=== PATIENT | female | born 1960 | race African-American/Black ===

== ENCOUNTER 2024-03-28 08:14 | Emergency (ER) | payer MEDICARE, MEDICAID, SELFPAY ==
--- NOTE | ~2024-03-28 | XR_ITS ---
EXAMINATION: XR CHEST CLINICAL INFORMATION: cough COMPARISON: None available. TECHNIQUE: 2 views of the chest were obtained. FINDINGS: The cardiac, hilar, and mediastinal contours are normal. The lungs are clear bilaterally. There is no pneumothorax or pleural effusion. There is no focal osseous or soft tissue abnormality. Pectus excavatum. XR/XR chest 2V IMPRESSION: No active disease. Electronically signed by: Braden Louis MD 03/28/2024 10:25 AM [facility] [place]
[2024-03-28 08:32] VITALS: BP 129/61; PULSE 83; RESP 16; TEMP 36.7; O2SAT 96; BMI 39.2
[2024-03-28 09:16] LABS: IDNOW Serial# 58CA691E; Strep A Nucleic Acid Negative (Negative)
[2024-03-28 09:32] LABS: Influenza A PCR NEGATIVE (Negative); Influenza B PCR NEGATIVE (Negative); Resp Syncy Virus RNA Qual PCR NEGATIVE (Negative); SARS COV2 PCR INHOUSE POSITIVE (Negative)
--- OUTSIDE RECORDS SUMMARY | 2024-03-28 09:47 | XMS_ITS | Encounter Summary ---
Author Organization [facility] Address [address] [place] [address] Care Team Providers Care Produce Manager Name Role Phone Grady Bah MD Primary Care Provider [phone] Claudette Benjamin DO Primary Care Pro vider Unavailable Grady Bah MD Primary Care Provider [phone] Claudette Benjamin DO Primary Care Pro vider Unavailable Ellie Jones MD Primary Care Provider Un available Owen Tejada MD Primary Care Provider Unavail able Gold Beaulieu MD Primary Care Provider [phone] Ellie Jones MD Primary Care Provider Un available Formerly [facility], 1928–1983, Pcp Primary Care Provider Unavailabl e Encounter Details Date Type Department Care Team Description 02/12/2011 Night Triage Doc Medical Records [address] [place] [address] Abstract, Provider Social History Tobacco Use Types Packs/Day Years Used Date Smoking Tobacco: Former Smokeless Tobacco: Never Comments:1984 Alcohol Use Standard Drinks/Week Comments Yes 0 (1 standard drink = 0.6 oz pur e alcohol) occ Sex Assigned at Date Recorded Not on file documented as of this encounter Plan of Treatment Not on file documented as of this encounter Visit Diagnoses Not on filedocumented in this encounter Care Teams Produce Manager Relationship Specialty Start Date End Date Grady Bah MD [address] [place] [address] PCP - General 03/21/09 11/01/12 Claudette Benjamin, DO [address] [place] [address] 20245 PCP - General Internal Medicine 11/02/12 12/24/12 Grady Bah MD [address] [place] [address] 53098 PCP - General Internal Medicine 12/25/12 04/22/13 Claudette Benjamin, DO [address] [place] [address] 67144 PCP - General Internal Medicine 04/23/13 11/21/13 Ellie Jones MD [address] [place] [address] 70376 PCP - General Internal Medicine 05/28/15 10/04/18 Owen Tejada MD [address] [place] [address] 14305 PCP - General Internal Medicine 10/05/18 12/05/19 Gold Beaulieu MD [address] [place] [address] PCP - General Internal Medicine 12/06/19 10/09/20 Ellie Jones MD [address] [place] [address] 25124 PCP - General 11/22/13 05/27/15 Formerly [facility], 1928–[facility], [address] [address] PCP - General Internal Medicine 10/10/20 documented as of this encounter
--- OUTSIDE RECORDS SUMMARY | 2024-03-28 09:47 | XMS_ITS | Encounter Summary ---
Author Organization [facility] Address [address] [place] [address] Care Team Providers Care Band Director Name Role Phone Pcp, No Primary Care Provider Unavailabl e Encounter Details Date Type Department Care Team (Late st Contact Info) Description 12/02/2022 Conversion Orders Only [facility] Internal Medicine - [facility] [address] [place] [address] Saravanan Herrera MD [address] [facility] [address] [place] [address] Social History Tobacco Use Types Packs/Day Years Used Date Smoking Tobacco: Never Assessed PHQ-9 Answer Date Recorded Patient Health Questionnaire-9 Score 7 10/26/2022 Comments Unknown Sex and Gender Information Value Date Recorded Sex Assigned at Female 09/01/2020 9:31 AM EDT Legal Sex Female 9:31 AM EDT Gender Identity Not on file Sexual Orientation Not on file documented as of this encounter Plan of Treatment Upcoming Encounters Date Type Department Care Team (Late st Contact Info) Description 07/09/2024 9:00 AM EDT Appointment [facility] Imaging - RADIOLOGY CT [address] [place] [address] 07/19/2024 9:00 AM EDT Office Visit [facility] - 03 Pulmonary Medicine [address] [place] [address] documented as of this encounter Visit Diagnoses Not on filedocumented in this encounter Additional Health Concerns Assessment Noted Time PHQ-9 Depression Total Score: 7 10/27/19 23 8:07 AM EDT documented as of this encounter Care Teams Band Director Relationship Specialty Start Date End Date Pcp, No PCP - General Internal Medicine 01/12/24 documented as of this encounter
--- OUTSIDE RECORDS SUMMARY | 2024-03-28 09:47 | XMS_ITS | Encounter Summary ---
Author Organization [facility] visits prior to 04/30/2023. [place] [address] Care Team Providers Care Oracle E Business Developer Name Role Phone Day Iraheta MD Primary Care Provid er Unavailable Mary Hernandez FIELD MECHANIC/SITE LEAD Unavailable [phone] Reason for Visit * Reason Onset Date Comments Insurance Question 05/18/2022 Encounter Details Date Type Department Care Team Description 05/18/2022 Telephone [facility]ly [facility] [address] [address] Mary Hernandez NP [address] [address] Insurance Question Social History Tobacco Use Types Packs/Day Years Used Date Smoking Tobacco: Former Cigarettes Q uit: 02/28/1981 Smokeless Tobacco: Never Alcohol Use Standard Drinks/Week Comments Not Currently 0 (1 standard drink = 0.6 oz pur e alcohol) Humiliation, Afraid, Rape, and Kick questionnair e Answer Date Recorded Within the last year, have y ou been afraid of your partner or ex-partner? No 03/25/2022 Within the last year, have y ou been humiliated or emotionally abused in other ways by your partner or ex-partner? No Within the last year, have y ou been kicked, hit, slapped, or otherwise physically hurt by your partner or ex-partner? No 03/25/2022 Within the last year, have y ou been raped or forced to have any kind of sexual activity by your partner or ex-partner? No 03/25/2022 Social Connection and Isolat ion Panel [NHANES] Answer Date Recorded In a typical week, how many times do you talk on the phone with family, friends, or neighbors? More than three times a week 03/25/2022 How often do you get togethe r with friends or relatives? More than three times a week 03/25/2022 How often do you attend chur or faith services? More than 4 times per year 03/25/2022 Do you belong to any clubs o r organizations such as hindu groups, unions, fraternal or athletic groups, or school groups? Yes 03/25/2022 How often do you attend meet ings of the clubs or organizations you belong to? More than 4 times per year 03/25/2022 Are you , , di vorced, , never , or living with a partner? 03/25/2022 AUDIT-C Answer Date Recorded Q1: How often do you have a drink containing alcohol? Never 03/25/2022 Q2: How many drinks containi ng alcohol do you have on a typical day when you are drinking? Patient does not drink Q3: How often do you have si x or more drinks on one occasion? Never 03/25/2022 Overall Financial Resource Strain (CARDIA) Answe r Date Recorded How hard is it for you to pa y for the very basics like food, housing, medical care, and heating? Not very hard 03/25/2022 PHQ-2 Answer Date Recorded SDOH PHQ2 SCORE 0 05/10/2022 [facility] [place] [facility] Occupat ional Health - Occupational Stress Questionnaire Answer Date Recorded Do you feel stress - tense, restless, nervous, or anxious, or unable to sleep at night because your mind is troubled all the time - these days? Very much 03/25/2022 Exercise Vital Sign Answer Date Recorde d On average, how many days pe r week do you engage in moderate to strenuous exercise (like a brisk walk)? 5 days 03/25/2022 On average, how many minutes do you engage in exercise at this level? 20 min 03/25/2022 Hunger Vital Sign Answer Date Recorded Within the past 12 months, y ou worried that your food would run out before you got the money to buy more. Never true 03/25/19 23 Within the past 12 months, t he food you bought just didn't last and you didn't have money to get more. Never true 03/25/2022 PRAPARE - Transportation Answer Date Re corded In the past 12 months, has l ack of transportation kept you from medical appointments or from getting medications? No 03/01 In the past 12 months, has l ack of transportation kept you from meetings, work, or from getting things needed for daily living? No 03/25/2022 Housing Stability Vital Sign Answer Mike e Recorded In the last 12 months, was t here a time when you were not able to pay the mortgage or rent on time? No 03/25/2022 In the last 12 months, how many places have you lived? 1 03/25/2022 In the last 12 months, was t here a time when you did not have a steady place to sleep or slept in a fpc (including now)? No 03/25/2022 Sex and Gender Information Value Date Recorded Sex Assigned at Female 01/19/2021 3:54 PM EST Gender Identity Female 01/19/2021 3:54 PM EST Sexual Orientation Not on file COVID-19 Exposure Response Date Recorded In the last 10 days, have yo u been in contact with someone who was confirmed or suspected to have Coronavirus/COVID-19? Unable to assess 05/19/2022 7:32 AM EDT documented as of this encounter Miscellaneous Notes * Telephone Encounter - Luna Steele CMA - 05/21/2022 3:07 PM EDT . Electronically signed by: Luna Steele CMA 05/21/22 1507 * Telephone Encounter - Laurita Cordova RMA - 05/20/2022 4:21 PM EDT In lab study Electronically signed by: MARILYN Rojas 05/20/22 1622 * Telephone Encounter - Tacho Benavides - 05/20/2022 4:02 PM EDT Patient calling to verify insurance clearance for sleep study . Please advise enrique at [phone] . * Telephone Encounter - Melissa Sierra - 05/18/2022 11:54 AM EDT [facility] [employer] is calling to ask if the appointment she has scheduled for tomorrow will be billed to the patient in it's entirety, or if she has to only pay her copay. If not, has an authorization been obtained from her insurance company for the visit. Leann from [employer] can be reached at [phone] documented in this encounter Plan of Treatment Not on file documented as of this encounter Visit Diagnoses Not on filedocumented in this encounter Additional Health Concerns Infection Onset Date Last Indicated Resolved Time R/O Influenza, POC 12/09/2022 12/09/2022 8:24 AM EDT R/O COVID-19 12/09/2022 12/09/2022 12/09/2022 8:39 AM EDT R/O COVID-19;Influenza;RSV 12/09/2022 12/09/2022 1 3:08 PM EDT documented as of this encounter Care Teams Oracle E Business Developer Relationship Specialty Start Date End Date Day Iraheta MD PCP - General Internal Medicine 02/16/22 Mary Hernandez NP [facility] [place] [id number] Nurse Practitioner Nurse Practitioner 10/28/22 documented as of this encounter
--- OUTSIDE RECORDS SUMMARY | 2024-03-28 09:47 | XMS_ITS | Encounter Summary ---
Author Organization [facility] visits prior to 04/30/2023. Address [place] [address] Care Team Providers Care Preparer Samples And Repairs Name Role Phone Day Iraheta MD Primary Care Provid er Unavailable Mary Hernandez SHOE FITTER Unavailable [phone] Reason for Visit * Reason Onset Date Comments fredis 06/03/2022 Encounter Details Date Type Department Care Team Description 06/03/2022 Telephone [facility] Internal Medicine - [address] [address] Day Iraheta MD traige Social History Tobacco Use Types Packs/Day Years [...] 03/25/2022 How often do you attend chur ch or evangelical services? More than 4 times per year 03/25/2022 Do you belong to any clubs o r organizations such as baptism groups, unions, fraternal or athletic groups, or [...] very hard 03/25/2022 PHQ-2 Answer Date Recorded [facility] PHQ2 SCORE 0 05/10/2022 [facility] of Occupat ional Health - Occupational Stress [...] place to sleep or slept in a snf (including now)? No 03/25/2022 Sex and Gender Information Value Date Recorded Sex Assigned at Female 01/19/2021 3:54 PM EST Gender Identity Female 01/19/2021 3:54 PM EST Sexual Orientation Not on file COVID-19 Exposure Response Date Recorded In the last 10 days, have yo u been in contact with someone who was confirmed or suspected to have Coronavirus/COVID-19? No / Unsure 05/25/2022 8:15 PM EDT documented as of this encounter Miscellaneous Notes * Telephone Encounter - Archana Borges - 06/03/2022 11:48 AM EDT Patient would like to speak to a nurse about her cholesterol. documented in this encounter Plan of Treatment [...] documented as of this encounter Care Teams Preparer Samples And Repairs Relationship Specialty Start Date End Date Day Iraheta MD PCP - General Internal Medicine 02/16/22 Mary Hernandez NP [facility] [place] [address] Nurse Practitioner Nurse Practitioner 10/28/22 documented as of this encounter
--- OUTSIDE RECORDS SUMMARY | 2024-03-28 09:47 | XMS_ITS | Encounter Summary ---
Author Organization [facility] Address [address] [place] [address] Care Team Providers Care Zoo Veterinarian Name Role Phone Ellie Jones MD Primary Care Provider Un available Owen Tejada MD Primary Care Provider Unavail able Gold Beaulieu MD Primary Care Provider [phone] Ellie Jones MD Primary Care Provider Un available [facility], Pcp Primary Care Provider Unavailabl e Encounter Details Date Type Department Care Team Description 11/23/2013 [facility] Medical Records [address] [place] [address] Uday Bowen Ted Social History Tobacco Use Types Packs/Day Years Used Date Smoking Tobacco: Former Cigarettes Q uit: 02/28/1981 Smokeless Tobacco: Never Alcohol Use Standard Drinks/Week Comments No 0 (1 standard drink = 0.6 oz pur e alcohol) rarely Sex Assigned at Date Recorded Not on file documented as of this encounter Plan of Treatment Not on file documented as of this encounter Visit Diagnoses Not on filedocumented in this encounter Care Teams Zoo Veterinarian Relationship Specialty Start Date End Date Ellie Jones MD PCP - General Internal Medicine 05/28/15 9 Owen Tejada MD PCP - General Internal Medicine 10/05/18 12/05/19 Gold Beaulieu MD [address] [place] [address] PCP - General Internal Medicine 12/06/19 10/09/20 Ellie Jones MD PCP - General 11/22/13 05/27/15 [facility], Pcp [address] [place] [address] PCP - General Internal Medicine 10/10/20 documented as of this encounter
--- OUTSIDE RECORDS SUMMARY | 2024-03-28 09:47 | XMS_ITS | Encounter Summary ---
Author Organization [facility] Address [address] [place] [address] Care Team Providers Care Skate Boarder Name Role Phone Claudette Benjamin DO Primary Care Pro vider Unavailable Ellie Jones MD Primary Care Provider Un available Owen Tejada MD Primary Care Provider Unavail able Gold Beaulieu MD Primary Care Provider [phone] Ellie Jones MD Primary Care Provider Un available [facility], [facility] Primary Care Provider Unavailabl e Encounter Details Date Type Department Care Team Description 09/20/2013 Pt. Non Urgent Medic al Question Adult Medicine [address] [address] Claudette Benjamin DO Social History Tobacco Use Types Packs/Day Years Used Date Smoking Tobacco: Former Cigarettes Q uit: 02/28/1981 Smokeless Tobacco: Never Comments:1983 Alcohol Use Standard Drinks/Week Comments No 0 (1 standard drink = 0.6 oz pur e alcohol) occ Sex Assigned at Date Recorded Not on file documented as of this encounter Progress Notes * Anneliese Saavedra M.A. - 09/24/2013 9:14 AM EDTFrom: Sera Barraza To: Claudette Guajardo DO Sent: 09/20/2013 7:14 AM EDT Subject: No Show ultrasound is incorrect Please note in reference to the note below it is incorrect. I had cancelled this appt. the night before. Could this be corrected to reflect the correct reason in which it was cancelled and not a no show? Sera Barraza From The Care Team Of: [facility] Received: 08/04/2013 11:46 PM EDT Appointment Information: Visit Type: Ultrasound Dept: Ultrasound - [place] Provider: ROCIO LOWE Date: 08/02/2013 Time: 8:00 Length: 30 min Appt Status: No Show documented in this encounter Plan of Treatment Not on file documented as of this encounter Visit Diagnoses Not on filedocumented in this encounter Care Teams Skate Boarder Relationship Specialty Start Date End Date Claudette Benjamin DO PCP - General Internal Medicine 04/23/13 11/21/13 Ellie Jones MD PCP - General Internal Medicine 05/28/15 9 Owen Tejada MD PCP - General Internal Medicine 10/05/18 12/05/19 Gold Beaulieu MD [address] [place] [address] PCP - General Internal Medicine 12/06/19 10/09/20 Ellie Jones MD PCP - General 11/22/13 05/27/15 [facility]ly [facility], [address] [address] PCP - General Internal Medicine 10/10/20 documented as of this encounter
--- OUTSIDE RECORDS SUMMARY | 2024-03-28 09:47 | XMS_ITS | Encounter Summary ---
Author Organization [facility] visits prior to 04/30/2023. [place] [address] Care Team Providers Care Fish Icer Name Role Phone Day Iraheta MD Primary Care Provid er Unavailable Mary Hernandez PAPER MAKER Unavailable [phone] Reason for Visit * Reason Onset Date Comments ? about a sleep study 05/24/2022 Encounter Details Date Type Department Care Team Description 05/24/2022 Telephone [facility] [address] [address] Mary Hernandez NP [address] [address] ? about a sleep study Social History Tobacco Use Types Packs/Day Years [...] How often do you attend chur or mormon services? More than 4 times per year 03/25/2022 Do you belong to any clubs o r organizations such as denominational groups, unions, fraternal or athletic groups, or [...] very hard 03/25/2022 PHQ-2 Answer Date Recorded [facility] PHQ2 SCORE 0 05/10/2022 [facility] of Occupat ional Health - Occupational Stress [...] place to sleep or slept in a fdc (including now)? No 03/25/2022 Sex and Gender [...] encounter Miscellaneous Notes * Telephone Encounter - Sarah Zafar - 05/24/2022 1:12 PM EDT Returned call and explained to patient to bring med with her and tell landfill gas plant field technician so they can tell her when to take it. * Telephone Encounter - Tamanna Parada - 05/24/2022 11:17 AM EDT [place] [phone] She needs to discuss if she needs take or not take any of her medications. This medication in particular QUEtiapine (SEROQUEL. She said she would like to know when the next available appt is. She mayneed to r/s due to a meeting . Call back is [phone] * Telephone Encounter - Luna Steele CMA - 05/24/2022 11:07 AM EDT [facility] for Tuesday05/25/2022. Mc Electronically signed by: Luna Steele CMA 05/24/22 1107 * Telephone Encounter - Kristal Bobo - 05/24/2022 9:54 AM EDT Patient is calling to check the status of getting the second sleep study set up. Please call [phone] Thank you Kristal documented in this encounter Plan of Treatment [...] documented as of this encounter Care Teams Fish Icer Relationship Specialty Start Date End Date Day Iraheta MD PCP - General Internal Medicine 02/16/22 Mary Hernandez NP [address] [place] [address] Nurse Practitioner Nurse Practitioner 10/28/22 documented as of this encounter
--- OUTSIDE RECORDS SUMMARY | 2024-03-28 09:47 | XMS_ITS | Encounter Summary ---
Author Organization [facility] Address [address] [place] [address] Care Team Providers Care Heavy Forger Name Role Phone Grady Bah MD Primary Care Provider [phone] Claudette Benjamin DO Primary Care Pro vider Unavailable Grady Bah MD Primary Care Provider [phone] Claudette Benjamin DO Primary Care Pro vider Unavailable Ellie Jones MD Primary Care Provider Un available Owen Tejada MD Primary Care Provider Unavail able Gold Beaulieu MD Primary Care Provider [phone] Ellie Jones MD Primary Care Provider Un available [facility], Pcp Primary Care Provider Unavailabl e Encounter Details Date Type Department Care Team Description 10/13/2010 Night Triage Doc Medical Records [address] [place] [address] Abstract, Provider Social History Tobacco Use Types [...] on filedocumented in this encounter Care Teams Heavy Forger Relationship Specialty Start Date End Date Grady Bah MD [address] [place] [address] PCP - General 03/21/09 11/01/12 Claudette Benjamin, DO [address] [place] [address] PCP - General Internal Medicine 11/02/12 12/24/12 Grady Bah MD [address] [place] [address] PCP - General Internal Medicine 12/25/12 04/22/13 Claudette Benjamin, DO [address] [place] [address] PCP - General Internal Medicine 04/23/13 11/21/13 Ellie Jones MD [address] [place] [address] PCP - General Internal Medicine 05/28/15 10/04/18 Owen Tejada MD [address] [place] [address] PCP - General Internal Medicine 10/05/18 12/05/19 Gold Beaulieu MD [address] [place] [address] PCP - General Internal Medicine 12/06/19 10/09/20 Ellie Jones MD [address] [place] [address] PCP - General 11/22/13 05/27/15 [facility], [address] [address] PCP - General Internal Medicine 10/10/20 documented as of this encounter
--- OUTSIDE RECORDS SUMMARY | 2024-03-28 09:47 | XMS_ITS | Encounter Summary ---
Author Organization [facility] Address [address] [place] [address] Care Team Providers Care Sports Broadcasting Internship Name Role Phone Pcp, No Primary Care Provider Unavailabl e Encounter Details Date Type Department Care Team (Late st Contact Info) Description 07/12/2022 Conversion Orders Only [facility] Internal Medicine - [address] [place] [address] Day Iraheta MD Social History Tobacco Use Types Packs/Day Years Used Date Smoking Tobacco: Never Assessed Comments Unknown Sex and Gender Information Value Date Recorded Sex Assigned at Female 09/01/2020 9:31 AM EDT Legal Sex Female 9:31 AM EDT Gender Identity Not on file Sexual Orientation Not on file documented as of this encounter Functional Status * Over the past 2 weeks, how often have you been bothered by any of the following problems? Question Answer Date of Assessment Author Patient Health Questionnaire-2 Score 0 07/15/2022 8:08 AM EDT [facility] Incom ing Clinical Documentation Flowsheets Conversion 4 * Little interest or pleasure in doing things Answer Date of Assessment Author Not at all 07/15/2022 8:08 AM EDT [facility] Incoming Clinical Documentation Flowsheets Conversion 4 * Feeling down, depressed, or hopeless Answer Date of Assessment Author Not at all 07/15/2022 8:08 AM EDT [facility] Incoming Clinical Documentation Flowsheets Conversion 4 documented as of this encounter Plan of Treatment Upcoming Encounters Date Type Department Care Team (Late st Contact Info) Description 07/09/2024 9:00 AM EDT Appointment [facility] Imaging - RADIOLOGY CT [address] [place] [address] 07/19/2024 9:00 AM EDT Office Visit [facility] - 03 Pulmonary Medicine [address] [place] [phone] documented as of this encounter Visit Diagnoses Not on filedocumented in this encounter Care Teams Sports Broadcasting Internship Relationship Specialty Start Date End Date Pcp, No PCP - General Internal Medicine 01/12/24 documented as of this encounter
--- OUTSIDE RECORDS SUMMARY | 2024-03-28 09:47 | XMS_ITS | Encounter Summary ---
Author Organization Formerly [facility] Address [address] [place] [address] Care Team Providers Care Blow Down Helper Name Role Phone Claudette Benjamin DO Primary Care Pro vider Unavailable Ellie Jones MD Primary Care Provider Un available Owen Tejada MD Primary Care Provider Unavail able Gold Beaulieu MD Primary Care Provider [phone] Ellie Jones MD Primary Care Provider Un available [facility], Pcp Primary Care Provider Unavailabl e Encounter Details Date Type Department Care Team Description 07/26/2013 Orders Only Adult Medicine [address] [address] Claudette Benjamin DO Pain in joint, site unspecified; Other malaise and fatigue Social History Tobacco Use Types Packs/Day Years Used Date Smoking Tobacco: Former Cigarettes Q uit: 02/28/1981 Smokeless Tobacco: Never Comments:1983 Alcohol Use Standard Drinks/Week Comments No 0 (1 standard drink = 0.6 oz pur e alcohol) occ Sex Assigned at Date Recorded Not on file documented as of this encounter Plan of Treatment Not on file documented as of this encounter Results * (ABNORMAL) 25 HYDROXY INCLUDES FRACTIONS IF PERFORMED (07/27/2013 11:29 AM EDT) 25-HYDROXY VITAMIN D TOTAL 16(L) 30 - 80 ng/ml 07/27/2013 3:50 PM EDT [facility] Comment: Vitamin D Reference Ranges ??Deficiency: ? <20 ng/mL ??Insufficiency: ?20-29 ng/mL ??Optimal: ?30-80 ng/mL ??High: ? >80 ng/mL 07/27/2013 11:2 9 AM EDT 07/27/2013 11:24 AM EDT Claudette Scruggs Colasacco DO LAB Performing Organization Address [facility] de Phone Number [address] * VITAMIN B-12, ASSAY (07/27/2013 11:29 AM EDT) VITAMIN B12 572 211 - 946 pg/mL 07/27/2013 12:41 PM EDT [facility] 07/27/2013 11:2 9 AM EDT 07/27/2013 11:24 AM EDT Claudette Scruggs Colasacco DO LAB Performing Organization Address [facility] Phone Number [address] * RBC SEDIMENTATION RATE, NON-AUTO (07/27/2013 11:29 AM EDT) ESR 6 0 - 30 mm/hr 07/27/2013 2:43 PM EDT [facility] 07/27/2013 11:2 9 AM EDT 07/27/2013 11:24 AM EDT Claudette Scruggs Colasacco DO LAB Performing Organization Address [facility] de Phone Number [address] documented in this encounter Visit Diagnoses Diagnosis Pain in joint, site unspecified Other malaise and fatigue documented in this encounter Care Teams Blow Down Helper Relationship Specialty Start Date End Date Claudette Benjamin DO PCP - General Internal Medicine 04/23/13 11/21/13 Ellie Jones MD PCP - General Internal Medicine 05/28/15 9 Owen Tejada MD PCP - General Internal Medicine 10/05/18 12/05/19 Gold Beaulieu MD [address] [place] [address] PCP - General Internal Medicine 12/06/19 10/09/20 Ellie Jones MD PCP - General 11/22/13 05/27/15 [facility], Pcp [address] [place] [address] PCP - General Internal Medicine 10/10/20 documented as of this encounter
--- OUTSIDE RECORDS SUMMARY | 2024-03-28 09:47 | XMS_ITS | Encounter Summary ---
Author Organization [facility] Address [address] [place] [address] Care Team Providers Care Passenger Screener Name Role Phone Ellie Jones MD Primary Care Provider Un available Owen Tejada MD Primary Care Provider Unavail able Gold Beaulieu MD Primary Care Provider [phone] Ellie Jones MD Primary Care Provider Un available [facility], [facility], Pcp Primary Care Provider Unavailabl e Encounter Details Date Type Department Care Team Description 11/22/2013 [facility] Medical Records [address] [place] [address] Robert Lau MD [address] [place] [address] Social History Tobacco Use Types Packs/Day Years [...] on filedocumented in this encounter Care Teams Passenger Screener Relationship Specialty Start Date End Date Ellie Jones MD PCP - General Internal Medicine 05/28/15 9 Owen Tejada MD PCP - General Internal Medicine 10/05/18 12/05/19 Gold Beaulieu MD [address] [place] [address] PCP - General Internal Medicine 12/06/19 10/09/20 Ellie Jones MD PCP - General 11/22/13 05/27/15 [facility], [facility], [address] [address] PCP - General Internal Medicine 10/10/20 documented as of this encounter
--- OUTSIDE RECORDS SUMMARY | 2024-03-28 09:47 | XMS_ITS | Encounter Summary ---
Author Organization [facility] Address [address] [place] [address] Care Team Providers Care Pad Assembler Name Role Phone Grady Bah MD Primary Care Provider [phone] Claudette Benjamin DO Primary Care Pro vider Unavailable Grady Bah MD Primary Care Provider [phone] Claudette Benjamin DO Primary Care Pro vider Unavailable Ellie Jones MD Primary Care Provider Un available Owen Tejada MD Primary Care Provider Unavail able Gold Beaulieu MD Primary Care Provider [phone] Ellie Jones MD Primary Care Provider Un available [facility], Pcp Primary Care Provider Unavailabl e Encounter Details Date Type Department Care Team Description 11/13/2010 Refill Adult Medicine [address] [id number] Grady Bah MD [address] [place] [address] [id number] Social History Tobacco Use Types Packs/Day Years [...] on filedocumented in this encounter Care Teams Pad Assembler Relationship Specialty Start Date End Date Grady Bah MD [address] [place] [address] PCP - General 03/21/09 11/01/12 Claudette Benjamin, DO [address] [place] [address] PCP - General Internal Medicine 11/02/12 12/24/12 Grady Bah MD [address] [place] [address] PCP - General Internal Medicine 12/25/12 04/22/13 Claudette Benjamin, DO [address] [place] [address] PCP - General Internal Medicine 04/23/13 11/21/13 Ellie Jones MD [address] [place] [address] PCP - General Internal Medicine 05/28/15 10/04/18 Owen Tejada MD [address] [place] [address] PCP - General Internal Medicine 10/05/18 12/05/19 Gold Beaulieu MD [address] [place] [address] PCP - General Internal Medicine 12/06/19 10/09/20 Ellie Jones MD [address] [place] [address] PCP - General 11/22/13 05/27/[address] [address] PCP - General Internal Medicine 10/10/20 documented as of this encounter
--- OUTSIDE RECORDS SUMMARY | 2024-03-28 09:47 | XMS_ITS | Encounter Summary ---
Author Organization [facility] Address [address] [place] [address] Care Team Providers Care Model Maker Scale Name Role Phone Grady Bah MD Primary Care Provider [phone] Claudette Benjamin DO Primary Care Pro vider Unavailable Grady Bah MD Primary Care Provider [phone] Claudette Benjamin DO Primary Care Pro vider Unavailable Ellie Jones MD Primary Care Provider Un available Owen Tejada MD Primary Care Provider Unavail able Gold Beaulieu MD Primary Care Provider [phone] Ellie Jones MD Primary Care Provider Un available [facility], Pcp Primary Care Provider Unavailabl e Encounter Details Date Type Department Care Team Description 11/13/2010 [employer] [facility] [place] [address] [place] [address] Md [place] Social History Tobacco Use Types Packs/Day Years Used Date Smoking Tobacco: Former Smokeless Tobacco: Never Comments:1984 Alcohol Use Standard Drinks/Week Comments Yes 0 (1 standard drink = 0.6 oz pur e alcohol) occ Sex Assigned at Date Recorded Not on file documented as of this encounter Miscellaneous Notes * Telephone Encounter - Gerda Zamarripa M.A. - 11/13/2010 2:38 PM EDTFrom: JULISA VERA Sent: TueNov 13, 2010 2:38 PM Subject: Request Refill Not On Medication List Request submitted by Julisa Rubio [<[id number]>] on 11/13/2010 at 2:35:12 PM Form Title: Request Refill Not On Medication List Submitted Data From: Julisa Rubio Primary care provider: Grady Bah MD --- Contact Information --- Contact Phone #: [phone] --- Medication Request Information --- Medication name: Generic Zoloft Dosage: Please read chart it's 50mg, not 25mg instructions: please read inital chart it no longer is 25mg # Dispensed: I would appreciate 3 mos. supply or 6 mos? Ordering Provider: don't remember but it was not Dr. Bah he had refill but wrong mg. Please see chart Pharmacy: [facility] Other Details: Please read the chart, documented in this encounter Plan of Treatment Not on file documented as of this encounter Visit Diagnoses Not on filedocumented in this encounter Care Teams Model Maker Scale Relationship Specialty Start Date End Date Grady Bah MD [address] [place] [address] PCP - General 03/21/09 11/01/12 Claudette Benjamin, [address] [address] PCP - General Internal Medicine 11/02/12 12/24/12 Grady Bah MD [address] [place] [address] PCP - General Internal Medicine 12/25/12 04/22/13 Claudette Benjamin, [address] [address] PCP - General Internal Medicine 04/23/13 11/21/13 Ellie Jones MD [address] [place] [address] PCP - General Internal Medicine 05/28/15 10/04/18 Owen Tejada MD [address] [place] [address] PCP - General Internal Medicine 10/05/18 12/05/19 Gold Beaulieu MD [address] [place] [address] PCP - General Internal Medicine 12/06/19 10/09/20 Ellie Jones MD [address] [place] [address] PCP - General 11/22/13 05/27/15 [facility], Pcp [address] [place] [address] PCP - General Internal Medicine 10/10/20 documented as of this encounter
--- OUTSIDE RECORDS SUMMARY | 2024-03-28 09:47 | XMS_ITS | Encounter Summary ---
Author Organization [facility] Address [address] [place] [address] Care Team Providers Care Advertising Solicitor Name Role Phone Grady Bah MD Primary Care Provider [phone] Claudette Benjamin DO Primary Care Pro vider Unavailable Grady Bah MD Primary Care Provider [phone] Claudette Benjamin DO Primary Care Pro vider Unavailable Ellie Jones MD Primary Care Provider Un available Owen Tejada MD Primary Care Provider Unavail able Gold Beaulieu MD Primary Care Provider [phone] Ellie Jones MD Primary Care Provider Un available [facility], Pcp Primary Care Provider Unavailabl e Encounter Details Date Type Department Care Team Description 11/01/2009 Night Triage Doc Medical Records [address] [place] [address] Abstract, Provider Social History Tobacco Use Types Packs/Day Years Used Date Smoking Tobacco: Former Comments:1984 Alcohol Use Standard Drinks/Week Comments Yes 0 (1 standard drink = 0.6 oz pur e alcohol) occ Sex Assigned at Date Recorded Not on file documented as of this encounter Plan of Treatment Not on file documented as of this encounter Visit Diagnoses Not on filedocumented in this encounter Care Teams Advertising Solicitor Relationship Specialty Start Date End Date Grady Bah MD [address] [place] [address] [phone] PCP - General 03/21/09 11/01/12 Claudette Benjamin, DO [address] [place] [address] PCP - General Internal Medicine 11/02/12 12/24/12 Grady Bah MD [address] [place] [address] PCP - General Internal Medicine 12/25/12 04/22/13 Claudette Benjamin, DO [address] [place] [address] PCP - General Internal Medicine 04/23/13 11/21/13 Ellie Jones MD [address] [place] [address] PCP - General Internal Medicine 05/28/15 10/04/18 Owen Tejada MD [address] [place] [address] PCP - General Internal Medicine 10/05/18 12/05/19 Gold Beaulieu MD [address] [place] [address] PCP - General Internal Medicine 12/06/19 10/09/20 Ellie Jones MD [address] [place] [address] PCP - General 11/22/13 05/27/15 [facility], [address] [address] PCP - General Internal Medicine 10/10/20 documented as of this encounter
--- OUTSIDE RECORDS SUMMARY | 2024-03-28 09:47 | XMS_ITS | Encounter Summary ---
Author Organization [facility] Address [address] [place] [address] Care Team Providers Care Slunk Skinner Name Role Phone Claudette Benjaimn DO Primary Care Pro vider Unavailable Ellie Jones MD Primary Care Provider Un available Owen Tejada MD Primary Care Provider Unavail able Gold Beaulieu MD Primary Care Provider [phone] Ellie Jones MD Primary Care Provider Un available [facility], [facility] Primary Care Provider Unavailabl e Reason for Referral * Specialist (Routine) - Authorized/Booked Specialty Diagnoses / Procedures Referred By Taj bryan Referred To Contact Physiatry Procedures REFERRAL TO COMMUNICATIONS EQUIPMENT SUPERVISOR Claudette Benjamin DO [address] [place], [place] [address] [place] [address]/[address] [address] Referral ID Status Reason Start Date Expiration Date V isits Requested Visits Authorized NOT REQUIRED Authorized/ Booked 10/04/2013 10/04/2014 1 1 Encounter Details Date Type Department Care Team Description 10/04/2013 Orders Only Adult Medicine [address] [address] [place] Colasacco, Claudette, DO Knee pain, unspecified laterality (Primary Dx) Social History Tobacco Use Types Packs/Day Years Used Date Smoking Tobacco: Former Cigarettes Q uit: 02/28/1981 Smokeless Tobacco: Never Comments:1983 Alcohol Use Standard Drinks/Week Comments No 0 (1 standard drink = 0.6 oz pur e alcohol) occ Sex Assigned at Date Recorded Not on file documented as of this encounter Plan of Treatment Not on file documented as of this encounter Visit Diagnoses Diagnosis Knee pain, unspecified laterality- Primary documented in this encounter Care Teams Slunk Skinner Relationship Specialty Start Date End Date Claudette Benjamin DO PCP - General Internal Medicine 04/23/13 11/21/13 Ellie Jones MD PCP - General Internal Medicine 05/28/15 9 Owen Tejada MD PCP - General Internal Medicine 10/05/18 12/05/19 Gold Beaulieu MD [address] [place] [address] PCP - General Internal Medicine 12/06/19 10/09/20 Ellie Jones MD PCP - General 11/22/13 05/27/15 [facility], [address] [address] PCP - General Internal Medicine 10/10/20 documented as of this encounter
--- OUTSIDE RECORDS SUMMARY | 2024-03-28 09:47 | XMS_ITS | Encounter Summary ---
Author Organization [facility] Address [address] [place] [address] Care Team Providers Care Link Trainer Operator Name Role Phone Grady Bah MD Primary Care Provider [phone] Claudette Benjamin DO Primary Care Pro vider Unavailable Grady Bah MD Primary Care Provider [phone] Claudette Benjamin DO Primary Care Pro vider Unavailable Ellie Jones MD Primary Care Provider Un available Owen Tejada MD Primary Care Provider Unavail able Gold Beaulieu MD Primary Care Provider [phone] Ellie Jones MD Primary Care Provider Un available [facility], Pcp Primary Care Provider Unavailabl e Encounter Details Date Type Department Care Team Description 09/21/2010 Night Triage Doc Medical Records [address] [place] [address] Abstract, Provider Social History Tobacco Use Types [...] on filedocumented in this encounter Care Teams Link Trainer Operator Relationship Specialty Start Date End Date Grady Bah MD [address] [place] [address] PCP - General 03/21/09 11/01/12 Claudette Benjamin, DO [address] [place] [address] PCP - General Internal Medicine 11/02/12 12/24/12 Grady Bah MD [address] [place] [address] PCP - General Internal Medicine 12/25/12 04/22/13 Claudette Benjamin, DO [address] [place] [address] PCP - General Internal Medicine 04/23/13 11/21/13 Ellie Jones MD [address] [place] [address] PCP - General Internal Medicine 05/28/15 10/04/18 Owen Tejada MD [address] [place] [address] PCP - General Internal Medicine 10/05/18 12/05/19 Gold Beaulieu MD [address] [place] [address] PCP - General Internal Medicine 12/06/19 10/09/20 Ellie Jones MD [address] [place] [address] PCP - General 11/22/13 05/27/15 [facility], [address] [address] PCP - General Internal Medicine 10/10/20 documented as of this encounter
--- OUTSIDE RECORDS SUMMARY | 2024-03-28 09:47 | XMS_ITS | Encounter Summary ---
Author Organization [facility] visits prior to 04/30/2023. [place] [address] Care Team Providers Care Truck Spotter Name Role Phone Day Iraheta MD Primary Care Provid er Unavailable Mary Hernandez CRADLE SLIDE MAKER Unavailable [phone] Reason for Visit * Reason Onset Date Comments BH:medication 05/05/2022 Encounter Details Date Type Department Care Team Description 05/05/2022 Telephone [facility] - [address] [address] Butch Vann MD BH:medication Social History Tobacco Use Types Packs/Day Years [...] often do you attend chur ch or hoahaoism services? More than 4 times per year 03/25/2022 Do you belong to any clubs o r organizations such as bahai groups, unions, fraternal or athletic groups, or [...] very hard 03/25/2022 PHQ-2 Answer Date Recorded [facility] PHQ2 SCORE 0 05/06/2022 [facility] - Occupational Stress [...] place to sleep or slept in a long-term (including now)? No 03/25/2022 Sex and Gender Information Value Date Recorded Sex Assigned at Female 01/19/2021 3:54 PM EST Gender Identity Female 01/19/2021 3:54 PM EST Sexual Orientation Not on file COVID-19 Exposure Response Date Recorded In the last 10 days, have yo u been in contact with someone who was confirmed or suspected to have Coronavirus/COVID-19? No / Unsure 05/07/2022 6:30 PM EST documented as of this encounter Miscellaneous Notes * Telephone Encounter - Tevin Enriquez - 05/05/2022 11:49 AM EST Patient stated she doesn't like the medication sertraline (ZOLOFT) 50 MG tablet it makes her feel dizzy she feels weird always crying and doesn't know why she is crying so she would like for Masodkarto switch [facility] [place] [address] Patient requesting refill on LORazepam (ATIVAN) 2 MG tablet she has a few left . Last apt:04/27/22 05/25/22 documented in this encounter Plan of Treatment [...] documented as of this encounter Care Teams Truck Spotter Relationship Specialty Start Date End Date Day Iraheta MD PCP - General Internal Medicine 02/16/22 Mary Hernandez NP [facility] [place] [address] Nurse Practitioner Nurse Practitioner 10/28/22 documented as of this encounter
--- OUTSIDE RECORDS SUMMARY | 2024-03-28 09:47 | XMS_ITS | Encounter Summary ---
Author Organization [facility] Address [address] [place] [address] Care Team Providers Care Cooperative Education Coordinator Name Role Phone Claudette Benjamin DO Primary Care Pro vider Unavailable Ellie Jones MD Primary Care Provider Un available Owen Tejada MD Primary Care Provider Unavail able Gold Beaulieu MD Primary Care Provider [phone] Ellie Jones MD Primary Care Provider Un available [facility], Pcp Primary Care Provider Unavailabl e Encounter Details Date Type Department Care Team Description 09/20/2013 CHEF TEACHER/[facility] Report Medical Records [address] [place] [address] Abstract, Provider Social History Tobacco Use Types [...] on filedocumented in this encounter Care Teams Cooperative Education Coordinator Relationship Specialty Start Date End Date Claudette Benjamin DO PCP - General Internal Medicine 04/23/13 11/21/13 Ellie Jones MD PCP - General Internal Medicine 05/28/15 9 Owen Tejada MD PCP - General Internal Medicine 10/05/18 12/05/19 Gold Beaulieu MD [address] [place] [address] PCP - General Internal Medicine 12/06/19 10/09/20 Ellie Jones MD PCP - General 11/22/13 05/27/15 [facility], [address] [address] PCP - General Internal Medicine 10/10/20 documented as of this encounter
--- OUTSIDE RECORDS SUMMARY | 2024-03-28 09:47 | XMS_ITS | Encounter Summary ---
Author Organization [facility] Address [address] [place] [address] Care Team Providers Care Manager Valuation Name Role Phone Claudette Benjamin DO Primary Care Pro vider Unavailable Ellie Jones MD Primary Care Provider Un available Owen Tejada MD Primary Care Provider Unavail able Gold Beaulieu MD Primary Care Provider [phone] Ellie Jones MD Primary Care Provider Un available [facility], Pcp Primary Care Provider Unavailabl e Encounter Details Date Type Department Care Team Description 10/04/2013 Marketing Regional Consultant Report Medical Records [address] [place] [address] Diomedes Rodríguez MD Social History Tobacco Use Types Packs/Day [...] on filedocumented in this encounter Care Teams Manager Valuation Relationship Specialty Start Date End Date Claudette Benjamin DO PCP - General Internal Medicine 04/23/13 11/21/13 Ellie Jones MD PCP - General Internal Medicine 05/28/15 9 Owen Tejada MD PCP - General Internal Medicine 10/05/18 12/05/19 Gold Beaulieu MD [address] [place] [address] PCP - General Internal Medicine 12/06/19 10/09/20 Ellie Jones MD PCP - General 11/22/13 05/27/[address] [address] PCP - General Internal Medicine 10/10/20 documented as of this encounter
--- OUTSIDE RECORDS SUMMARY | 2024-03-28 09:47 | XMS_ITS | Encounter Summary ---
Author Organization [employer] [facility] Address [address] [place] [address] Care Team Providers Care Teletype Or Varitype Keyboard Operator Name Role Phone Pcp, No Primary Care Provider Unavailabl e Encounter Details Date Type Department Care Team (Late Contact Info) Description 09/30/2022 Conversion Orders Only [facility] HISTORICAL DATA CONVERSIONS [address] [place] [address] Social History Tobacco Use Types Packs/Day Years [...] Assessment Author Patient Health Questionnaire-2 Score 0 09/30/2022 10:11 AM EDT [facility] [employer]co eva Clinical Documentation Flowsheets Conversion 2 * Little interest or pleasure in doing things Answer Date of Assessment Author Not at all 09/30/2022 10:11 AM EDT Intf, h Incoming Clinical Documentation Flowsheets Conversion 2 * Feeling down, depressed, or hopeless Answer Date of Assessment Author Not at all 09/30/2022 10:11 AM EDT Int, h Incoming Clinical Documentation Flowsheets Conversion 2 documented as of this encounter Plan of Treatment Upcoming Encounters Date Type Department Care Team (Late Contact Info) Description 07/09/2024 9:00 AM EDT Appointment [facility] - RADIOLOGY CT [address] [place] [address] 07/19/2024 9:00 AM EDT Office Visit [facility] - 03 Pulmonary Medicine [address] [place] [phone] documented as of this encounter Visit Diagnoses Not on filedocumented in this encounter Care Teams Teletype Or Varitype Keyboard Operator Relationship Specialty Start Date End Date Pcp, No PCP - General Internal Medicine 01/12/24 documented as of this encounter
--- OUTSIDE RECORDS SUMMARY | 2024-03-28 09:48 | XMS_ITS | Encounter Summary ---
Author Organization [facility] Address [address] [place] [address] Care Team Providers Care Staff Physical Therapist Name Role Phone Ellie Jones MD Primary Care Provider Un available Owen Tejada MD Primary Care Provider Unavail able Gold Beaulieu MD Primary Care Provider [phone] [phone] [facility]cp Primary Care Provider Unavailabl e Encounter Details Date Type Department Care Team Description 07/09/2018 [facility] Medical Records [address] [place] [address] Hemant Barroso MD [address] [place] [phone] Social History Tobacco Use Types Packs/Day Years [...] on filedocumented in this encounter Care Teams Staff Physical Therapist Relationship Specialty Start Date End Date Ellie Jones MD PCP - General Internal Medicine 05/28/15 9 Owen Tejada MD PCP - General Internal Medicine 10/05/18 12/05/19 Gold Beaulieu MD [address] [place] [address] PCP - General Internal Medicine 12/06/19 10/09/20 [facility] Pcp [address] [place] [address] PCP - General Internal Medicine 10/10/20 documented as of this encounter
--- OUTSIDE RECORDS SUMMARY | 2024-03-28 09:48 | XMS_ITS | Encounter Summary ---
Author Organization [facility] Address [address] [place] [address] Care Team Providers Care Floral Design Teacher Name Role Phone Ellie Jones MD Primary Care Provider Un available Owen Tejada MD Primary Care Provider Unavail able Gold Beaulieu MD Primary Care Provider [phone] [phone] [facility], Pcp Primary Care Provider Unavailabl e Encounter Details Date Type Department Care Team Description 11/10/2017 Aircraft Manager Report Medical Records [address] [place] [address] Abstract, Provider Social History Tobacco Use Types Packs/Day Years Used Date Smoking Tobacco: Former Cigarettes Q uit: 02/28/1981 Smokeless Tobacco: Never Alcohol Use Standard Drinks/Week Comments No 0 (1 standard drink = 0.6 oz pur e alcohol) occasional Sex Assigned at Date Recorded Not on file documented as of this encounter Plan of Treatment Not on file documented as of this encounter Visit Diagnoses Not on filedocumented in this encounter Care Teams Floral Design Teacher Relationship Specialty Start Date End Date Ellie Jones MD PCP - General Internal Medicine 05/28/15 9 Owen Tejada MD PCP - General Internal Medicine 10/05/18 12/05/19 Gold Beaulieu MD [address] [place] [address] PCP - General Internal Medicine 12/06/19 10/09/20 [facility], Pcp [address] [place] [address] PCP - General Internal Medicine 10/10/20 documented as of this encounter
--- OUTSIDE RECORDS SUMMARY | 2024-03-28 09:48 | XMS_ITS | Encounter Summary ---
Author Organization [facility] Address [address] [place] [address] Care Team Providers Care Conference Reservationist Name Role Phone Ellie Jones MD Primary Care Provider Un available Owen Tejada MD Primary Care Provider Unavail able Gold Beaulieu MD Primary Care Provider [phone] Ellie Jones MD Primary Care Provider Un available [facility], Pcp Primary Care Provider Unavailabl e Reason for Visit * Reason Onset Date Comments TEST RESULTS 12/10/2013 Encounter Details Date Type Department Care Team Description 12/10/2013 Telephone Adult [address] [address] Claudette Benjamin, TEST RESULTS Social History Tobacco Use Types Packs/Day Years Used Date Smoking Tobacco: Former Cigarettes Q uit: 02/28/1981 Smokeless Tobacco: Never Comments:1983 Alcohol Use Standard Drinks/Week Comments No 0 (1 standard drink = 0.6 oz pur e alcohol) occ Sex Assigned at Date Recorded Not on file documented as of this encounter Miscellaneous Notes * Telephone Encounter - Brittany Garcia L.P.N. - 12/13/2013 1:41 PM EDT Called pt given message below she states that her pain is about the same it is usually worse @ night She saw Dr Baig today and he increased her Lyrica today She has an appt 01/28/14 with you She will be calling on a regular basis to see if there are any cancellations Thank you Brittany * Telephone Encounter - Jocelyn Leon M.A. - 12/11/2013 3:41 PM EDT Message left to call back * Telephone Encounter - Brittany Garcia L.P.N. - 12/10/2013 4:05 PM EDT Left message on v/m to call back * Telephone Encounter - Maddi Bowman M.A. - 12/10/2013 3:38 PM EDT Result Notes Notes Recorded by Brittany Garcia L.P.N. on 12/10/2013 at 11:27 AM Message left on v/m To call back ------ Notes Recorded by Odette Golden MD on 12/10/2013 at 8:39 AM Please call patient that her MRI showed degenerative changes. The last time I saw her, she was not having any pain anymore nor was the pain radicular. Please find out how she's doing. Also if she would like a follow up to further discuss. Thanks. Telephone Information: * Telephone Encounter - Eliz Barraza - 12/10/2013 12:12 PM EDT Patient stated that the nurse called her. She thinks it may be for her lab and mri results. Requesting a call back. documented in this encounter Plan of Treatment Not on file documented as of this encounter Visit Diagnoses Not on filedocumented in this encounter Care Teams Conference Reservationist Relationship Specialty Start Date End Date Ellie Jones MD PCP - General Internal Medicine 05/28/15 9 Owen Tejada MD PCP - General Internal Medicine 10/05/18 12/05/19 Gold Beaulieu MD [address] [place] [address] PCP - General Internal Medicine 12/06/19 10/09/20 Ellie Jones MD PCP - General 11/22/13 05/27/15 [facility], [address] [address] PCP - General Internal Medicine 10/10/20 documented as of this encounter
--- OUTSIDE RECORDS SUMMARY | 2024-03-28 09:48 | XMS_ITS | Encounter Summary ---
Author Organization [facility] Address [address] [place] [address] Care Team Providers Care Hotel Services Sales Representative Name Role Phone Pcp, No Primary Care Provider Unavailabl e Encounter Details Date Type Department Care Team (Late st Contact Info) Description 02/07/2023 Conversion Orders Only [facility] Behavioral Medicine [address] [address] Butch Vann MD [address] [place] [address] Social History Tobacco Use Types Packs/Day Years Used Date Smoking Tobacco: Never Assessed PHQ-2 Answer Date Recorded Patient Health Questionnaire-2 Score 0 01/24/2023 PHQ-9 Answer Date Recorded Patient Health Questionnaire-9 [...] Assessment Author Patient Health Questionnaire-2 Score 0 02/07/2023 8:45 AM EST [facility], [facility] Incom ing Clinical Documentation Flowsheets Conversion 2 * Little interest or pleasure in doing things Answer Date of Assessment Author Not at all 02/07/2023 8:45 AM EST [facility] Incoming Clinical Documentation Flowsheets Conversion 2 * Feeling down, depressed, or hopeless Answer Date of Assessment Author Not at all 02/07/2023 8:45 AM EST [facility] Incoming Clinical Documentation Flowsheets Conversion 2 documented as of this encounter Plan of Treatment Upcoming Encounters Date Type Department Care Team (Late st Contact Info) Description 07/09/2024 9:00 AM EDT Appointment [facility] - RADIOLOGY CT [address] [place] [address] 07/19/2024 9:00 AM EDT Office Visit [facility] - 03 Pulmonary Medicine [address] [place] [phone] documented as of this encounter Visit Diagnoses Not on filedocumented in this encounter Additional Health Concerns Assessment Noted Time PHQ-9 Depression Total Score: 7 10/27/19 23 8:07 AM EDT documented as of this encounter Care Teams Hotel Services Sales Representative Relationship Specialty Start Date End Date Pcp, No PCP - General Internal Medicine 01/12/24 documented as of this encounter
--- OUTSIDE RECORDS SUMMARY | 2024-03-28 09:48 | XMS_ITS | Encounter Summary ---
Author Organization [facility] Address [address] [place] [address] Care Team Providers Care Ball Fringe Machine Operator Name Role Phone Ellie Jones MD Primary Care Provider Un available Owen Tejada MD Primary Care Provider Unavail able Gold Beaulieu MD Primary Care Provider [phone] [facility], Pcp Primary Care Provider Unavailabl e Reason for Visit * Reason Comments E-prescribe Rx Request Encounter Details Date Type Department Care Team Description 05/27/2018 Refill Adult Medicine [address] [address] Ellie Jones MD E-prescribe Rx Request Social History Tobacco Use Types Packs/Day Years Used Date Smoking Tobacco: Former Cigarettes Q uit: 02/28/1981 Smokeless Tobacco: Never Alcohol Use Standard Drinks/Week Comments No 0 (1 standard drink = 0.6 oz pur e alcohol) occasional Sex Assigned at Date Recorded Not on file documented as of this encounter Miscellaneous Notes * Telephone Encounter - Elsy Arshad M.A. - 05/30/2018 10:23 AM EDT Last Vit D lab 09/15/17 =22 I do not see that our office has filled Vit D 50,000iu weekly please advise * Telephone Encounter - Rula Walter 05/29/2018 9:48 AM EDT Patient would like script to be: E-PRESCRIBED/FAXED TO PHARMACY WHEN WAS THE PATIENT'S LAST APPOINTMENT IN ADULT MEDICINE? 04-18-2018 WHEN WAS THE LAST TIME THE PATIENT SAW THEIR PCP? Same as above Does patient have an upcoming appointment? Yes 06-13-2018 (THE MEDICATION REQUESTED IS ON THE MED LIST ABOVE) All of the medications requested were on the CURRENT MEDS list Did you check the Pharmacy information above?: YES Patient wants: 90 -day supply Is this a mail order prescription request ? NO If the refill is from a FAXED refill request what is the RX # listed on the fax? N/A Patients current insurance carrier is: Payor: [employer] [facility] MCR / Plan: [facility] / Product Type: HMO [id number] documented in this encounter Plan of Treatment Not on file documented as of this encounter Visit Diagnoses Not on filedocumented in this encounter Care Teams Ball Fringe Machine Operator Relationship Specialty Start Date End Date Ellie Jones MD PCP - General Internal Medicine 05/28/15 9 Owen Tejada MD PCP - General Internal Medicine 10/05/18 12/05/19 Gold Beaulieu MD [address] [place] [address] PCP - General Internal Medicine 12/06/19 10/09/20 [facility] [address] [address] PCP - General Internal Medicine 10/10/20 documented as of this encounter
--- OUTSIDE RECORDS SUMMARY | 2024-03-28 09:48 | XMS_ITS | Encounter Summary ---
Author Organization [facility] Address [address] [place] [address] Care Team Providers Care Die Designer Name Role Phone Ellie Jones MD Primary Care Provider Un available Owen Tejada MD Primary Care Provider Unavail able Gold Beaulieu MD Primary Care Provider [phone] Ellie Jones MD Primary Care Provider Un available [facility], Pcp Primary Care Provider Unavailabl e Reason for Visit * Reason Onset Date Comments medication problems 02/25/2014 Encounter Details Date Type Department Care Team Description 02/25/2014 Telephone Adult [address] [address] Claudette Benjamin DO medication problems Social History Tobacco Use Types Packs/Day Years Used Date Smoking Tobacco: Former Cigarettes Q uit: 02/28/1981 Smokeless Tobacco: Never Comments:1983 Alcohol Use Standard Drinks/Week Comments No 0 (1 standard drink = 0.6 oz pur e alcohol) occ Sex Assigned at Date Recorded Not on file documented as of this encounter Miscellaneous Notes * Telephone Encounter - Elsy Arshad M.A. - 02/25/2014 12:39 PM EST Pt advised that Dr. Scruggs has reviewed the office notes from urgent care when pt was seen yesterday. Pt was prescribed #50 Munford 5/325mg 1 by mouth every 8 hours-pt on [place] for fibromyalgia (tramadol). I advised pt & pt daughter when pt passed the phone to her daughter. I advised elevate leg, ice, limit weight bearing on injured foot. Daughter became upset stating that the Munford is not working and wants a stronger pain med for her mother. Daughter asked to speak to Dr. Scruggs, and then she asked for pt services so she can complain- * Telephone Encounter - Claudette Guajardo DO - 02/25/2014 10:58 AM EST No should rest ice and elevate madelyn foot. Non weight bearing toe * Telephone Encounter - Svitlana Chirinos - 02/25/2014 10:34 AM EST Who is calling? The patient Name of the medication vicadin What is the specific problem or interaction? Patient seen 02/24/14 urgent care for broken toe, medication not working can she have something else ? If the patient is having a problem with taking the med - how long has the problem been going on? documented in this encounter Plan of Treatment Not on file documented as of this encounter Visit Diagnoses Not on filedocumented in this encounter Care Teams Die Designer Relationship Specialty Start Date End Date Ellie Jones MD PCP - General Internal Medicine 05/28/15 9 Owen Tejada MD PCP - General Internal Medicine 10/05/18 12/05/19 Gold Beaulieu MD [address] [place] [address] PCP - General Internal Medicine 12/06/19 10/09/20 Ellie Jones MD PCP - General 11/22/13 05/27/15 [facility], Pcp [address] [place] [address] PCP - General Internal Medicine 10/10/20 documented as of this encounter
--- OUTSIDE RECORDS SUMMARY | 2024-03-28 09:48 | XMS_ITS | Encounter Summary ---
Author Organization [facility] Address [address] [place] [address] Care Team Providers Care Roll Scale Worker Name Role Phone Ellie Jones MD Primary Care Provider Un available Owen Tejada MD Primary Care Provider Unavail able Gold Beaulieu MD Primary Care Provider [phone] [facility], Pcp Primary Care Provider Unavailabl e Reason for Visit * Reason Onset Date Comments medication problems 01/31/2018 Encounter Details Date Type Department Care Team Description 01/31/2018 Telephone Adult [address] [address] Ellie Jones MD medication problems Social History Tobacco Use Types Packs/Day Years Used Date Smoking Tobacco: Former Cigarettes Q uit: 02/28/1981 Smokeless Tobacco: Never Alcohol Use Standard Drinks/Week Comments No 0 (1 standard drink = 0.6 oz pur e alcohol) occasional Sex Assigned at Date Recorded Not on file documented as of this encounter Miscellaneous Notes * Telephone Encounter - Kevin Taylor M.A. - 02/02/2018 8:47 AM EST Message left for patient to return call. * Telephone Encounter - Mena Strickland PA-C - 01/31/2018 2:04 PM EST She can follow up to address * Telephone Encounter - Ellie Jones MD - 01/31/2018 1:47 PM EST Please forward to prescribing provider, carol San * Telephone Encounter - Cyndy Rodas C.M.A. - 01/31/2018 1:43 PM EST Please review and advise * Telephone Encounter - Laurita Charles - 01/31/2018 1:25 PM EST Who is calling? The patient Name of the medication buPROPion (WELLBUTRIN SR) 150 MG 12 hr tablet What is the specific problem or interaction? Pt states she has been taking medication and does not feel any improvement. She is wondering when she will start feeling improvements. She also states that she threw out prescription and would like a refill. If the patient is having a problem with taking the med - how long has the problem been going on? N/A documented in this encounter Plan of Treatment Not on file documented as of this encounter Visit Diagnoses Not on filedocumented in this encounter Care Teams Roll Scale Worker Relationship Specialty Start Date End Date Ellie Jones MD PCP - General Internal Medicine 05/28/15 9 Owen Tejada MD PCP - General Internal Medicine 10/05/18 12/05/19 Gold Beaulieu MD [address] [place] [address] PCP - General Internal Medicine 12/06/19 10/09/20 [facility], [address] [address] PCP - General Internal Medicine 10/10/20 documented as of this encounter
--- OUTSIDE RECORDS SUMMARY | 2024-03-28 09:48 | XMS_ITS | Encounter Summary ---
Author Organization [facility] Address [address] [place] [address] Care Team Providers Care Business Manager [employer] Name Role Phone Ellie Jones MD Primary Care Provider Un available Owen Tejada MD Primary Care Provider Unavail able Gold Bealuieu MD Primary Care Provider [phone] [facility], Pcp Primary Care Provider Unavailabl e Encounter Details Date Type Department Care Team Description 02/10/2018 [facility] Medical Records [address] [place] [address] Josephine Araya MD Social History Tobacco Use Types Packs/Day [...] on filedocumented in this encounter Care Teams Business Manager [employer] Relationship Specialty Start Date End Date Ellie Jones MD PCP - General Internal Medicine 05/28/15 9 Owen Tejada MD PCP - General Internal Medicine 10/05/18 12/05/19 Gold Beaulieu MD [address] [place] [address] PCP - General Internal Medicine 12/06/19 10/09/20 [facility], Pcp [address] [place] [address] PCP - General Internal Medicine 10/10/20 documented as of this encounter
--- OUTSIDE RECORDS SUMMARY | 2024-03-28 09:48 | XMS_ITS | Encounter Summary ---
Author Organization [facility] Address [address] [place] [address] Care Team Providers Care Cigar Head Perforator Name Role Phone Ellie Jones MD Primary Care Provider Un available Owen Tejada MD Primary Care Provider Unavail able Gold Beaulieu MD Primary Care Provider [phone] [facility], Pcp Primary Care Provider Unavailabl e Encounter Details Date Type Department Care Team Description 07/09/2018 [facility] Medical Records [address] [place] [address] Social History Tobacco Use Types Packs/Day Years [...] on filedocumented in this encounter Care Teams Cigar Head Perforator Relationship Specialty Start Date End Date Ellie Jones MD PCP - General Internal Medicine 05/28/15 9 Owen Tejada MD PCP - General Internal Medicine 10/05/18 12/05/19 Gold Beaulieu MD [address] [place] [address] PCP - General Internal Medicine 12/06/19 10/09/20 [facility], Pcp [address] [place] [address] PCP - General Internal Medicine 10/10/20 documented as of this encounter
--- OUTSIDE RECORDS SUMMARY | 2024-03-28 09:48 | XMS_ITS | Encounter Summary ---
Author Organization [facility] Address [address] [place] [address] Care Team Providers Care Process Development Manager Name Role Phone Ellie Jones MD Primary Care Provider Un available Owen Tejada MD Primary Care Provider Unavail able Gold Beaulieu MD Primary Care Provider [phone] [facility], Pcp Primary Care Provider Unavailabl e Encounter Details Date Type Department Care Team Description 03/31/2018 Lamination Machine Operator Report Medical Records [address] [place] [address] Leslie Dudley PA-C Social History Tobacco Use Types Packs/Day Years [...] on filedocumented in this encounter Care Teams Process Development Manager Relationship Specialty Start Date End Date Ellie Jones MD PCP - General Internal Medicine 05/28/15 9 Owen Tejada MD PCP - General Internal Medicine 10/05/18 12/05/19 Gold Beaulieu MD [address] [place] [address] PCP - General Internal Medicine 12/06/19 10/09/20 [facility], Pcp [address] [place] [address] PCP - General Internal Medicine 10/10/20 documented as of this encounter
--- OUTSIDE RECORDS SUMMARY | 2024-03-28 09:48 | XMS_ITS | Encounter Summary ---
Author Organization [facility] Address [address] [place] [address] Care Team Providers Care Primer Inserting Machine Operator Name Role Phone Ellie Jones MD Primary Care Provider Un available Owen Tejada MD Primary Care Provider Unavail able Gold Beaulieu MD Primary Care Provider [phone] [facility], Pcp Primary Care Provider Unavailabl e Encounter Details Date Type Department Care Team Description 11/05/2017 Orders Only Adult Urgent Care - [address] [address] Jean Marie Escalera PA-C Abscess of right hip (Primary Dx) Social History Tobacco Use Types [...] documented as of this encounter Results * CULTURE, WOUND (11/05/2017 11:55 AM EDT) Other Source Not Found 11/05/2017 11:55 AM EDT 11/05/2017 11:55 AM EDT Narrative MATTHEW CORNELL - 11/08/2017 12:34 PM EDT FINAL: No pathogens noted ?? NORMAL SKIN BEKAH NOTED GRAM STAIN RESULT NO POLYS, NO EPITHELIAL CELLS, NO ORGANISMS NOTED Jean Marie Escalera PA-C [facility] documented in this encounter Visit Diagnoses Diagnosis Abscess of right hip- Primary Cellulitis and abscess of leg, except foot documented in this encounter Care Teams Primer Inserting Machine Operator Relationship Specialty Start Date End Date Ellie Jones MD PCP - General Internal Medicine 05/28/15 9 Owen Tejada MD PCP - General Internal Medicine 10/05/18 12/05/19 Gold Beaulieu MD [address] [place] [address] PCP - General Internal Medicine 12/06/19 10/09/[address] [address] PCP - General Internal Medicine 10/10/20 documented as of this encounter
--- OUTSIDE RECORDS SUMMARY | 2024-03-28 09:48 | XMS_ITS | Encounter Summary ---
Author Organization [facility] Address [address] [place] [address] Care Team Providers Care Locomotive Oiler Name Role Phone Pcp, No Primary Care Provider Unavailabl e Encounter Details Date Type Department Care Team (Late st Contact Info) Description 06/11/2022 Conversion Orders Only [facility] HISTORICAL DATA CONVERSIONS [address] [place] [address] Social History Tobacco Use Types Packs/Day Years [...] Assessment Author Patient Health Questionnaire-2 Score 0 06/11/2022 8:26 AM EDT [facility] Incom ing Clinical Documentation Flowsheets Conversion 2 * Little interest or pleasure in doing things Answer Date of Assessment Author Not at all 06/11/2022 8:26 AM EDT [facility] Incoming Clinical Documentation Flowsheets Conversion 2 * Feeling down, depressed, or hopeless Answer Date of Assessment Author Not at all 06/11/2022 8:26 AM EDT [facility] Incoming Clinical Documentation Flowsheets Conversion 2 documented as of this encounter Plan of Treatment Upcoming Encounters Date Type Department Care Team (Late st Contact Info) Description 07/09/2024 9:00 AM EDT Appointment [facility] - RADIOLOGY CT [address] [place] [address] 07/19/2024 9:00 AM EDT Office Visit [facility] [place] - 03 Pulmonary Medicine [address] [address] documented as of this encounter Visit Diagnoses Not on filedocumented in this encounter Care Teams Locomotive Oiler Relationship Specialty Start Date End Date Pcp, No PCP - General Internal Medicine 01/12/24 documented as of this encounter
--- OUTSIDE RECORDS SUMMARY | 2024-03-28 09:48 | XMS_ITS | Encounter Summary ---
Author Organization [facility] Address [address] [place] [address] Care Team Providers Care Joinery Factory Worker Name Role Phone Ellie Jones MD Primary Care Provider Un available Owen Tejada MD Primary Care Provider Unavail able Gold Beaulieu MD Primary Care Provider [phone] [facility], Pcp Primary Care Provider Unavailabl e Encounter Details Date Type Department Care Team Description 02/09/2018 Hospital Medical Records [address] [place] [address] Rohan Hunt MD [address] [place] [address] Social History Tobacco Use Types Packs/Day Years [...] on filedocumented in this encounter Care Teams Joinery Factory Worker Relationship Specialty Start Date End Date Ellie Jones MD PCP - General Internal Medicine 05/28/15 9 Owen Tejada MD PCP - General Internal Medicine 10/05/18 12/05/19 Gold Beaulieu MD [address] [place] [id number] PCP - General Internal Medicine 12/06/19 10/09/20 [facility], Pcp [address] [place] [address] PCP - General Internal Medicine 10/10/20 documented as of this encounter
--- OUTSIDE RECORDS SUMMARY | 2024-03-28 09:48 | XMS_ITS | Encounter Summary ---
Author Organization [facility] Address [address] [place] [address] Care Team Providers Care Rubber Thread Spooler Name Role Phone Ellie Jones MD Primary Care Provider Un available Owen Tejada MD Primary Care Provider Unavail able Gold Beaulieu MD Primary Care Provider [phone] [facility], Pcp Primary Care Provider Unavailabl e Encounter Details Date Type Department Care Team Description 12/14/2017 Release of Information Medical Records [address] [place] [id number] Abstract, Provider Social History Tobacco Use Types [...] on filedocumented in this encounter Care Teams Rubber Thread Spooler Relationship Specialty Start Date End Date Ellie Jones MD PCP - General Internal Medicine 05/28/15 9 Owen Tejada MD PCP - General Internal Medicine 10/05/18 12/05/19 Gold Beaulieu MD [address] [place] [address] PCP - General Internal Medicine 12/06/19 10/09/20 [facility], Pcp [address] [place] [address] PCP - General Internal Medicine 10/10/20 documented as of this encounter
--- OUTSIDE RECORDS SUMMARY | 2024-03-28 09:48 | XMS_ITS | Encounter Summary ---
Author Organization [facility] Address [address] [place] [address] Care Team Providers Care Signal Circuit Designer Name Role Phone Owen Tejada MD Primary Care Provider Unavail able Gold Beaulieu MD Primary Care Provider [phone] [facility], Pcp Primary Care Provider Unavailabl e Encounter Details Date Type Department Care Team Description 10/13/2018 Orders Only Adult Medicine A - [address] [address] Natalya Gooden APRN [address] [place] [address] Nocturia (Primary Dx) Social History Tobacco Use Types Packs/Day Years Used Date Smoking Tobacco: Former Cigarettes Q uit: 02/28/1981 Smokeless Tobacco: Never Alcohol Use Standard Drinks/Week Comments No 0 (1 standard drink = 0.6 oz pur e alcohol) rarely Sex Assigned at Date Recorded Not on file documented as of this encounter Plan of Treatment Scheduled Orders Name Type Priority Associated Diagnoses Orde r Schedule URINE, CULTURE Lab Routine Nocturia Expected: 10/13/2018, Expires: 10/13/2019 documented as of this encounter Visit Diagnoses Diagnosis Nocturia- Primary documented in this encounter Care Teams Signal Circuit Designer Relationship Specialty Start Date End Date Owen Tejada MD PCP - General Internal Medicine 10/05/18 12/05/19 Gold Beaulieu MD [address] [place] [address] PCP - General Internal Medicine 12/06/19 10/09/20 [facility], Pcp [address] [place] [address] PCP - General Internal Medicine 10/10/20 documented as of this encounter
--- OUTSIDE RECORDS SUMMARY | 2024-03-28 09:48 | XMS_ITS ---
Author Organization [facility] Address [address] [place] [address] Care Team Providers Care Dry Cleaning Counter Clerk Name Role Phone Pcp, No Primary Care Provider Unavailabl e Oncology Navigation Status:Enrolled (Active) Start date:09/09/2023 Enrollment date:09/09/2023 Current support & services provided:Oncology Wake Case Team Name Relationship Phone Diandra Amin RN Registered Nurse(Responsible Staff) [phone] Continued Care and Services Coordination
--- OUTSIDE RECORDS SUMMARY | 2024-03-28 09:49 | XMS_ITS | Encounter Summary ---
Author Organization [facility] Address [address] [place] [address] Care Team Providers Care Energy Sales Consultant Name Role Phone Grady Bah MD Primary Care Provider [phone] Claudette Benjamin DO Primary Care Pro vider Unavailable Grady Bah MD Primary Care Provider Claudette Benjamin DO Primary Care Pro vider Unavailable Ellie Jones MD Primary Care Provider Un available Owen Tejada MD Primary Care Provider Unavail able Gold Beaulieu MD Primary Care Provider [phone] Ellie Jones MD Primary Care Provider Un available [facility], Pcp Primary Care Provider Unavailabl e Encounter Details Date Type Department Care Team Description 05/01/2012 Seo Executive Report Medical Records [address] [place] [address] [place] Social History Tobacco Use Types Packs/Day Years Used Date Smoking Tobacco: Former Smokeless Tobacco: Never Comments:1984 Alcohol Use Standard Drinks/Week Comments No 0 (1 standard drink = 0.6 oz pur e alcohol) occ Sex Assigned at Date Recorded Not on file documented as of this encounter Plan of Treatment Not on file documented as of this encounter Visit Diagnoses Not on filedocumented in this encounter Care Teams Energy Sales Consultant Relationship Specialty Start Date End Date Grady Bah MD [address] [place] [address] PCP - General 03/21/09 11/01/12 Claudette Benjamin, [address] [address] PCP - General Internal Medicine 11/02/12 12/24/12 Grady Bah MD [address] [place] [address] PCP - General Internal Medicine 12/25/12 04/22/13 Claudette Benjamin, [address] [address] PCP - General Internal Medicine 04/23/13 11/21/13 Ellie Jones MD [address] [place] [address] PCP - General Internal Medicine 05/28/15 10/04/18 Owen Tejada MD [address] [place] [address] PCP - General Internal Medicine 10/05/18 12/05/19 Gold Beaulieu MD [address] [place] [address] PCP - General Internal Medicine 12/06/19 10/09/20 Ellie Jones MD [address] [place] [address] PCP - General 11/22/13 05/27/15 [facility], [address] [address] PCP - General Internal Medicine 10/10/20 documented as of this encounter
--- OUTSIDE RECORDS SUMMARY | 2024-03-28 09:49 | XMS_ITS | Encounter Summary ---
Author Organization [facility] Address [address] [place] [address] Care Team Providers Care Skilled Trades Teacher Name Role Phone Ellie Jones MD Primary Care Provider Un available Owen Tejada MD Primary Care Provider Unavail able Gold Beaulieu MD Primary Care Provider [phone] Ellie Jones MD Primary Care Provider Un available [facility], Pcp Primary Care Provider Unavailabl e Reason for Visit * Reason Onset Date Comments Medical Records 05/22/2015 Encounter Details Date Type Department Care Team Description 05/22/2015 Telephone OBGYN - [address] [id number] Magaly Contreras MD [address] [place] [address] Medical Records Social History Tobacco Use Types Packs/Day Years Used Date Smoking Tobacco: Former Cigarettes Q uit: 02/28/1981 Smokeless Tobacco: Never Comments:1983 Alcohol Use Standard Drinks/Week Comments No 0 (1 standard drink = 0.6 oz pur e alcohol) occ Sex Assigned at Date Recorded Not on file documented as of this encounter Miscellaneous Notes * Telephone Encounter - Luh CerdaAbhilash - 05/22/2015 4:12 PM EDT Requested medical records for patient to set up service to THERAPY ADMINISTRATIVE ASSISTANT will contact once we receive medical records documented in this encounter Plan of Treatment Not on file documented as of this encounter Visit Diagnoses Not on filedocumented in this encounter Care Teams Skilled Trades Teacher Relationship Specialty Start Date End Date Ellie Jones MD PCP - General Internal Medicine 05/28/15 9 Owen Tejada MD PCP - General Internal Medicine 10/05/18 12/05/19 Gold Beaulieu MD [address] [place] [address] PCP - General Internal Medicine 12/06/19 10/09/20 Ellie Jones MD PCP - General 11/22/13 05/27/15 [facility], [address] [address] PCP - General Internal Medicine 10/10/20 documented as of this encounter
--- OUTSIDE RECORDS SUMMARY | 2024-03-28 09:49 | XMS_ITS | Encounter Summary ---
Author Organization [facility] Address [address] [place] [address] Care Team Providers Care Hardwood Faller Name Role Phone Ellie Jones MD Primary Care Provider Un available Owen Tejada MD Primary Care Provider Unavail able Gold Beaulieu MD Primary Care Provider [phone] Ellie Jones MD Primary Care Provider Un available [facility], Pcp Primary Care Provider Unavailabl e Reason for Visit * Reason Onset Date Comments My Chart Appointment 04/17/2015 Encounter Details Date Type Department Care Team Description 04/17/2015 Telephone Adult Medicine [address] [address] Claudette Benjamin DO My Chart Appointment Social History Tobacco Use Types Packs/Day Years Used Date Smoking Tobacco: Former Cigarettes Q uit: 02/28/1981 Smokeless Tobacco: Never Comments:1983 Alcohol Use Standard Drinks/Week Comments No 0 (1 standard drink = 0.6 oz pur e alcohol) occ Sex Assigned at Date Recorded Not on file documented as of this encounter Miscellaneous Notes * Telephone Encounter - Ritu Marin - 04/17/2015 8:26 AM EST Patient has scheduled a visit through My Chart. Please call patient to triage for appropriateness. Date appointment is booked: 04/17/15 2:[address] solorzano Reason for appointment: patient has a cough and states she went to urgent care yesterday was given predizone, states she also took nyquil last night and her inhaler, nothing is helping, she booked appt for thios afternoon, but wants a morning documented in this encounter Plan of Treatment Not on file documented as of this encounter Visit Diagnoses Not on filedocumented in this encounter Care Teams Hardwood Faller Relationship Specialty Start Date End Date Ellie Jones MD PCP - General Internal Medicine 05/28/15 9 Owen Tejada MD PCP - General Internal Medicine 10/05/18 12/05/19 Gold Beaulieu MD [address] [place] [address] PCP - General Internal Medicine 12/06/19 10/09/20 Ellie Jones MD PCP - General 11/22/13 05/27/15 [facility], Pcp [address] [place] [address] PCP - General Internal Medicine 10/10/20 documented as of this encounter
--- OUTSIDE RECORDS SUMMARY | 2024-03-28 09:49 | XMS_ITS | Encounter Summary ---
Author Organization [facility] Address [address] [place] [address] Care Team Providers Care Construction Engineering Manager Name Role Phone Ellie Jones MD Primary Care Provider Un available Owen Tejada MD Primary Care Provider Unavail able Gold Beaulieu MD Primary Care Provider [phone] Ellie Jones MD Primary Care Provider Un available [facility], Pcp Primary Care Provider Unavailabl e Encounter Details Date Type Department Care Team Description 11/10/2014 Orders Only Adult Medicine [address] [address] Claudette Benjamin DO Microscopic hematuria (Primary Dx) Social History Tobacco Use Types [...] Type Priority Associated Diagnoses Orde r Schedule URINALYSIS, COMPLETE Lab Routine Microscopic hematuria Expected: 11/10/2014, Expires: 11/10/2015 documented as of this encounter Visit Diagnoses Diagnosis Microscopic hematuria- Primary documented in this encounter Care Teams Construction Engineering Manager Relationship Specialty Start Date End Date Ellie Jones MD PCP - General Internal Medicine 05/28/15 9 Owen Tejada MD PCP - General Internal Medicine 10/05/18 12/05/19 Gold Beaulieu MD [address] [place] [address] PCP - General Internal Medicine 12/06/19 10/09/20 Ellie Jones MD PCP - General 11/22/13 05/27/[address] [address] PCP - General Internal Medicine 10/10/20 documented as of this encounter
--- OUTSIDE RECORDS SUMMARY | 2024-03-28 09:49 | XMS_ITS | Encounter Summary ---
Author Organization [facility] Address [address] [place] [address] Care Team Providers Care Laboratory Mechanic Helper Name Role Phone Ellie Jones MD Primary Care Provider Un available Owen Tejada MD Primary Care Provider Unavail able Gold Beaulieu MD Primary Care Provider [phone] Ellie Jones MD Primary Care Provider Un available [facility], Pcp Primary Care Provider Unavailabl e Encounter Details Date Type Department Care Team Description 01/18/2014 Pt. Non Urgent Medic al Question Adult Medicine [address] [address] Claudette Benjamin DO Social History Tobacco Use Types Packs/Day Years Used Date Smoking Tobacco: Former Cigarettes Q uit: 02/28/1981 Smokeless Tobacco: Never Comments:1983 Alcohol Use Standard Drinks/Week Comments No 0 (1 standard drink = 0.6 oz pur e alcohol) occ Sex Assigned at Date Recorded Not on file documented as of this encounter Progress Notes * Claudette Guajardo DO - 01/18/2014 1:19 PM EST No, only 10 mg. Can use nose spray and mucinex in blue box and humidifier. * Maddi Bowman M.A. - 01/18/2014 8:21 AM ESTFrom: Sera Barraza To: Claudette Guajardo DO Sent: 01/18/2014 8:19 AM EST Subject: zyrtec GM Dr. Wilkins, i have 10MG generic zyrtec which I take one and it is not helping, I still have running nose. I want to know if I can take 2 instead of one to see if it helps? please call me [phone] documented in this encounter Plan of Treatment Not on file documented as of this encounter Visit Diagnoses Not on filedocumented in this encounter Care Teams Laboratory Mechanic Helper Relationship Specialty Start Date End Date Ellie Jones MD PCP - General Internal Medicine 05/28/15 9 Owen Tejada MD PCP - General Internal Medicine 10/05/18 12/05/19 Gold Beaulieu MD [address] [place] [address] PCP - General Internal Medicine 12/06/19 10/09/20 Ellie Jones MD PCP - General 11/22/13 05/27/15 [facility], Pcp [address] [place] [address] PCP - General Internal Medicine 10/10/20 documented as of this encounter
--- OUTSIDE RECORDS SUMMARY | 2024-03-28 09:49 | XMS_ITS | Encounter Summary ---
Author Organization [facility] Address [address] [place] [address] Care Team Providers Care Cereal Miller Name Role Phone Owen Tejada MD Primary Care Provider Unavail able Gold Beaulieu MD Primary Care Provider [phone] [facility], [facility] Primary Care Provider Unavailabl e Encounter Details Date Type Department Care Team Description 11/17/2018 Orders Only Adult Medicine [facility] [address] [place] [address] Campos Hector PA-C Chronic left-sided low back pain with left-sided sciatica (Primary Dx); Pain in both hands; Pain in both wrists Social History Tobacco Use Types Packs/Day Years Used Date Smoking Tobacco: Former Cigarettes Q uit: 02/28/1981 Smokeless Tobacco: Never Alcohol Use Standard Drinks/Week Comments No 0 (1 standard drink = 0.6 oz pur e alcohol) rarely Sex Assigned at Date Recorded Not on file documented as of this encounter Plan of Treatment Not on file documented as of this encounter Results * RBC SEDIMENTATION RATE, NON-AUTO (11/17/2018 4:43 PM EDT) ERYTHROCYTE SEDIMENTATION RATE 8 0 - 30 mm/hr 11/17/2018 7:26 PM EDT [facility] 11/17/2018 4:43 PM EDT 11/17/2018 4:43 PM EDT Campos Hector PA-C LAB [facility] documented in this encounter Visit Diagnoses Diagnosis Chronic left-sided low back pain with left-sided sciatica- Primary Pain in both hands Pain in both wrists Pain in joint, forearm documented in this encounter Care Teams Cereal Miller Relationship Specialty Start Date End Date Owen Tejada MD PCP - General Internal Medicine 10/05/18 12/05/19 Gold Beaulieu MD [address] [place] [address] PCP - General Internal Medicine 12/06/19 10/09/20 [facility], [address] [address] PCP - General Internal Medicine 10/10/20 documented as of this encounter
--- OUTSIDE RECORDS SUMMARY | 2024-03-28 09:49 | XMS_ITS | Encounter Summary ---
Author Organization [facility] Address [address] [place] [address] Care Team Providers Care Cream Tester Name Role Phone Owen Tejada MD Primary Care Provider Unavail able Gold Beaulieu MD Primary Care Provider [phone] [facility], [facility] Primary Care Provider Unavailabl e Encounter Details Date Type Department Care Team Description 10/20/2018 Orders Only Walk In [address] [address] Adrienne Duffy PA-C Social History Tobacco Use Types Packs/Day [...] on filedocumented in this encounter Care Teams Cream Tester Relationship Specialty Start Date End Date Owen Tejada MD PCP - General Internal Medicine 10/05/18 12/05/19 Gold Beaulieu MD [address] [place] [address] PCP - General Internal Medicine 12/06/19 10/09/20 [facility], Pcp [address] [place] [address] PCP - General Internal Medicine 10/10/20 documented as of this encounter
--- OUTSIDE RECORDS SUMMARY | 2024-03-28 09:50 | XMS_ITS | Continuity of Care Document ---
Author Name [facility] Care Team Providers Care Exceptional Children Teacher Assistant Name Role Phone [facility] Unavailable Unavailable Problems Problem Status Onset Date Classification Date Reported Comments Source Morbid obesity (disorder) Active 09/17/2020 This Problem was set by a rule (CHS_EKS_BMI _PROB). [facility] Low back pain Active 09/12/2021 [facility] Contusion of toe (disorder) 09/17/2020 [facility] Allergy to penicillin (disorder) 09/17/2020 [facility] Morbid obesity (disorder) 09/17/[address] [facility] Body mass index 40+ - severely obese (finding) 09/17/[address] [facility] Accidental bumping into stationary object (finding) 09/17/2020 [facility] Severe low back pain 09/12/2021 [facility] Medications Medication Details Route Status Patient Instructions Ordering Provider Order Date Source 12 HR bupropion hydrochloride 150 MG Extended Release Oral Tablet Active [facility] amphetamine aspartate 2.5 MG / amphetamine sulfate 2.5 MG / dextroamphetamine saccharate 2.5 MG / dextroamphetamine sulfate 2.5 MG Oral Tablet [Adderall] Active [facility] gabapentin 300 MG Oral Capsule Active [facility] losartan potassium 50 MG Oral Tablet Active [facility] Allergies, Adverse Reactions, Alerts Substance Category Reaction Severity Reaction type Status Date Reported Comments Source Penicillins propensity to adverse reactions to drug Active [facility] penicillin Assertion Drug allergy Active [facility] Diagnostic Reports Report Value Date Source DX Foot Minimum 3 Views DATE OF SERVICE: 09/01/2020 10:08 am EXAM: LeftDX Foot Minimum 3 Views CLINICAL HISTORY: Trauma with Injury and Pain. COMPARISON: No Relevant Comparisons FINDINGS: No fracture or dislocation. Mild first MTP joint osteoarthritis. No radiographic evidence of osteomyelitis with particular attention to the great toe. Small plantar calcaneal osteophyte. No other significant finding. IMPRESSION: 1. Mild first MTP joint osteoarthritis. 2. No other significant radiographic abnormality involving the great toe. Seat: [id number] Verified BY: Jae Rojas 09/01/2020 [facility] Consultation Notes Results Value Date Source Progress Note Encounter DateCompla intHistory Of Present Illness back pain The patient returns today in follow-up. Since her last visit her severe pain has eased considerably. She still has a little bit of interscapular pain on occasion. Her lower back pain however has resolved. She is having no radiating numbness paresthesias or weakness into her lower extremities. She is performing normal daily activities without difficulty. She is happy with her situation. She has no new questions or concerns. She has recently had an MRI scan of her lumbar spine. She presents today for review. back pain The patient has been referred for evaluation of severe lumbar pain. The patient states that she has a history of chronic lumbar pain but over the past few months has developed severe left-sided lumbar pain. The pain does not radiate. It is not associated any numbness paresthesias or weakness. She is having no bowel or bladder associated symptoms. She has no recent history of accident or injury. She has been treated with oral steroids without improvement. She has undergone evaluation in the emergency department without clear-cut cause being determined. 09/07/2021 [facility] ED Physician Documentation 09/01/2020 [facility] History and Physicals Results Value Date Source History & Physical ExamFindingsDetails No Information 09/07/2021 [facility] Vital Signs Vital Sign Value Date Comments Source Body height 160.02 cm 09/07/2021 [facility] Patient Body Weight 101.605 kg 09/07/2021 [facility] Intravascular Systolic 155 mm[Hg] 09/07/2021 [facility] Intravascular Diastolic 80 mm[Hg] 09/07/2021 [facility] Heart Beat 76 /min 09/07/2021 [facility] Body mass index 39.68 kg/m2 09/07/2021 [facility] Body height 160.02 cm 08/26/2021 [facility] Patient Body Weight 102.058 kg 08/26/2021 [facility] Intravascular Systolic 160 mm[Hg] 08/26/2021 [facility] Intravascular Diastolic 78 mm[Hg] 08/26/2021 [facility] Heart Beat 74 /min 08/26/2021 [facility] Body mass index 39.86 kg/m2 08/26/2021 [facility] Temperature Oral (F) 98.5 [degF] 09/01/2020 [facility] Systolic Blood Pressure #2 174 mm[Hg] 09/01/2020 [facility] Diastolic Blood Pressure #2 76 mm[Hg] 09/01/2020 [facility] Peripheral Pulse Rate 67 BPM 09/01/2020 [facility] Respiratory Rate 18 breaths/minute 09/01/2020 [facility] SpO2 97 % 09/01/2020 [facility] Oxygen Therapy Room air (09/01/20 9:41 AM) 09/01/2020 [facility] Pain Present No (09/01/20 9:41 AM) 09/01/2020 [facility] Height Contributor (ft) 5 [ft_i] 09/01/2020 [facility] Height Contributor (inches) 3 [in_i] 09/01/2020 [facility] Height 160.02 cm 09/01/2020 [facility] Weight 104.4 kg 09/01/2020 [facility] Body Mass Index 40.77 kg/m2 09/01/2020 [facility] BSA 2.15 m2 09/01/2020 [facility] Encounters Location Location Details Encounter Type Encounter Number Reason For Visit Attending Provider ADM Date DC Date Status Source [facility] Emergency [id number] RIGOVALDEMAR SOSAALICIA 09/01 [facility] [id number] 08/26 [facility] [id number] 08/26 [facility] [id number] 08/26 [facility] [place] [facility] New Patient-comp rehensive [id number] Severe low back pain Charli Mccloud MD 08/26 [facility] [place] [facility] Established Patient-deta iled [id number] _MAPID: Encount er_0 Charli Mccloud MD 09/07 [facility] Procedures Procedure Code Date Perfomer Comments Source Established Patient-detailed 09/07/2021 [facility] New Patient-comprehensive 08/26/2021 [facility] Social History Social History Date Source TypeDescriptionQuantityDate CapturedComments Alcohol Use Details Unknown Caffeine Use Details Unknown Tobacco Use Status Cigarette smoker Smoking Status Current every day smoker Smoking Tobacco Use Details Cigarette: No Details Available Cigarette: No Details Available Sex Female [facility] Social History TypeResponse Sex Female [facility] Sex Female [facility] Social History TypeResponse Sex Female [facility] Social History TypeResponse Sex Female [facility] Social History TypeResponse Sex Female [facility] Assessment and Plan Assessment and Plan Date Source MedicationInstructionsDosage Effective Dates (start - stop)StatusComments No Information 09/07/2021 [facility] Family History Value Date Source Family MemberTypeDiagnosisAg e At Onset No Information 09/07/2021 [facility] Advance Directives Order Name Results Value Date Source Advance Directives Advance Directives DirectiveY es / NoEffective DateFile Name No Information 09/07/2021 [facility]
--- OUTSIDE RECORDS SUMMARY | 2024-03-28 09:50 | XMS_ITS | Encounter Summary ---
Author Organization [facility] Address [address] [place] [address] Care Team Providers Care Medical Assistant Internal Medicine Name Role Phone Ellie Jones MD Primary Care Provider Un available Owen Tejada MD Primary Care Provider Unavail able Gold Beaulieu MD Primary Care Provider [phone] [facility] Primary Care Provider Unavailabl e Encounter Details Date Type Department Care Team Description 07/07/2015 Business Doc Medical Records [address] [place] [id number] Abstract, Provider Social History Tobacco Use Types [...] on filedocumented in this encounter Care Teams Medical Assistant Internal Medicine Relationship Specialty Start Date End Date Ellie Jones MD PCP - General Internal Medicine 05/28/15 9 Owen Tejada MD PCP - General Internal Medicine 10/05/18 12/05/19 Gold Beaulieu MD [address] [place] [address] PCP - General Internal Medicine 12/06/19 10/09/20 [facility] [address] [place] [address] PCP - General Internal Medicine 10/10/20 documented as of this encounter
--- OUTSIDE RECORDS SUMMARY | 2024-03-28 09:50 | XMS_ITS | Clinical Summary ---
Author Organization [address] Address [address] [place] [id number] Care Team Providers Care Mix Crusher Operator Name Role Phone No, Pcp (Do Not Change Name) Primary Care Provid er Unavailable Medications No known medications Active Problems Problem Noted Date Diagnosed Date History of thyroid cancer 10/18/2016 Osteoarthritis 10/18/2016 Obesity 10/18/2016 Dyslipidemia 10/18/2016 Vitamin D deficiency 10/18/2016 Hematuria 10/18/2016 JUSTYNA (obstructive sleep apnea) 10/18/2016 Anxiety 10/18/2016 Asthma 10/18/2016 Lateral epicondylitis 10/18/2016 Carpal tunnel syndrome 10/18/2016 Depression 10/18/2016 Social History Tobacco Use Types Packs/Day Years Used Date Smoking Tobacco: Never Assessed Comments Unknown Sex and Gender Information Value Date Recorded Sex Assigned at Not on file Legal Sex Female 10:23 AM EDT Gender Identity Not on file Sexual Orientation Not on file Plan of Treatment Health Maintenance Due Date Last Done Comments HIV screening 10/16/1972 Hepatitis C screening 10/16/1977 Cervical cancer screening 10/16/1980 Breast cancer screening 1999 Lipid disorder screening 1999 Colon cancer screening, Colonoscopy 10/16/2004 Diabetes screening 10/16/2004 Shingles vaccine (Shingrix) (1 of 2 - Shingrix (RZV) 2 Dose Standard Series) 10/16/2009 Tetanus adult (Td q 10,TDAP once) 12/05/2019 010 Influenza vaccine 09/29/2023 Covid-19 vaccine series ( - 2023-25 season) 2023 RSV Discussion (1 - 1-dose 7 5+ series) 10/16/2034 Meningococcal Vaccine Aged Out No jose abhinav eligible based on patient's age to complete this topic Pneumococcal Vaccine Aged Out No long er eligible based on patient's age to complete this topic Insurance MEDICARE MEDICARE MEDICARE MEDICARE Care Teams Mix Crusher Operator Relationship Specialty Start Date End Date No, Pcp (Do Not Change Name) PCP - General 10/18/16
--- OUTSIDE RECORDS SUMMARY | 2024-03-28 09:50 | XMS_ITS | Encounter Summary ---
Author Organization [facility] Address [address] [place] [address] Care Team Providers Care Sheet Finisher Name Role Phone Ellie Jones MD Primary Care Provider Un available Owen Tejada MD Primary Care Provider Unavail able Gold Beaulieu MD Primary Care Provider [phone] Ellie Jones MD Primary Care Provider Un available [facility], Pcp Primary Care Provider Unavailabl e Encounter Details Date Type Department Care Team Description 04/17/2015 Orders Only Adult Medicine [address] [address] Karlene Andino MD [address] [place] [id number] Social History Tobacco Use Types Packs/Day Years [...] on filedocumented in this encounter Care Teams Sheet Finisher Relationship Specialty Start Date End Date Ellie Jones MD PCP - General Internal Medicine 05/28/15 9 Owen Tejada MD PCP - General Internal Medicine 10/05/18 12/05/19 Gold Beaulieu MD [address] [place] [address] PCP - General Internal Medicine 12/06/19 10/09/20 Ellie Jones MD PCP - General 11/22/13 05/27/15 [facility], Pcp [address] [place] [phone] PCP - General Internal Medicine 10/10/20 documented as of this encounter
--- OUTSIDE RECORDS SUMMARY | 2024-03-28 09:50 | XMS_ITS | Encounter Summary ---
Author Organization [facility] Address [address] [place] [address] Care Team Providers Care Medical Office Scheduler Name Role Phone Grady Bah MD Primary Care Provider [phone] Claudette Benjamin DO Primary Care Pro vider Unavailable Grady Bah MD Primary Care Provider [phone] Claudette Benjamin DO Primary Care Pro vider Unavailable Ellie Jones MD Primary Care Provider Un available Owen Tejada MD Primary Care Provider Unavail able Gold Beaulieu MD Primary Care Provider [phone] Ellie Jones MD Primary Care Provider Un available [facility], Pcp Primary Care Provider Unavailabl e Encounter Details Date Type Department Care Team Description 07/06/2012 Plant Physiologist Report Medical Records [address] [place] [id number] Paige Grover MD Social History Tobacco Use Types Packs/Day [...] filedocumented in this encounter Care Teams Medical Office Scheduler Relationship Specialty Start Date End Date Grady Bah MD [address] [place] [id number] PCP - General 03/21/09 11/01/12 Claudette Benjamin, DO [address] [place] [phone] PCP - General Internal Medicine 11/02/12 12/24/12 Grady Bah MD [address] [place] [phone] PCP - General Internal Medicine 12/25/12 04/22/13 Claudette Benjamin, DO [address] [place] [id number] PCP - General Internal Medicine 04/23/13 11/21/13 Ellie Jones MD [address] [place] [id number] PCP - General Internal Medicine 05/28/15 10/04/18 Owen Tejada MD [address] [place] [id number] PCP - General Internal Medicine 10/05/18 12/05/19 Gold Beaulieu MD [address] [place] [phone] PCP - General Internal Medicine 12/06/19 10/09/20 Ellie Jones MD [address] [place] [id number] PCP - General 11/22/13 05/27/15 [facility], [address] [address] PCP - General Internal Medicine 10/10/20 documented as of this encounter
--- OUTSIDE RECORDS SUMMARY | 2024-03-28 09:50 | XMS_ITS | Continuity of Care Document ---
Author Organization [employer] [facility] visits prior to 04/30/2023[place] [address] Care Team Providers Care Corridor Redevelopment Manager Name Role Phone Day Iraheta MD Primary Care Provid er Unavailable Mary Hernandez PHOTO PRINT SPECIALIST Unavailable [phone] Encounters Date Type Department Care Team Description 03/23/2023 Plan of Care Documentation Physical Therapy - [address] [place] [address] 03/21/2023 Plan of Care Documentation Occupational Therapy [address], [place] [address] 03/21/2023 Travel 03/21/2023 9:30 AM EST Treatment Occupational Therapy [address], [place] [address] Selma Garrett, OTR/Pedrito Joint pain in fingers of both hands (Primary Dx); Trigger ring finger, unspecified laterality; Impaired mobility and ADLs Discharge Disposition: Home or Self Care 03/21/2023 8:45 AM EST Treatment Physical Therapy [address] [place] [address] Geena Wiggins, PT Primary osteoarthritis of both knees (Primary Dx); Muscle weakness; Chronic low back pain without sciatica, unspecified back pain laterality; Weakness of both hips; Impaired functional mobility, balance, gait, and endurance Discharge Disposition: Home or Self Care 03/02/2023 Telephone Gynecologic On[facility] - [facility] [address] [facility] [address] Erin Marquez LPN 02/24/2023 Travel 02/24/2023 8:40 AM EST Office Visit Pulmonary & Critical Care - [facility] [address] [facility] [address] Alejandrina Kathleen DO Lung nodule, solitary (Primary Dx) Discharge Disposition: Home or Self Care 02/16/2023 7:52 AM EST - 02/16/2023 11:59 PM EST Hospital Encounter Diagnostic Imaging - [facility] [address] [place] [address] Noam Salinas PA-C Discharge Disposition: Home or Self Care 02/16/2023 7:52 AM EST - 02/16/2023 11:59 PM EST Hospital Encounter Diagnostic Imaging - [facility]) [address] [place] [address] Noam Salinas PA-C Discharge Disposition: Home or Self Care 02/16/2023 Travel 02/16/2023 7:51 AM EST Hospital Encounter CT Imaging - [facility] ( Imaging) [address] [place] [address] Darwin Hatfield MD Discharge Disposition: Home or Self Care 02/15/2023 Travel 02/15/2023 1:00 PM EST Initial consult Orthopaedics - Sports Medicine [facility] [address] [place] [phone] Noam Salinas PA-C Trigger ring finger, unspecified laterality (Primary Dx); Primary osteoarthritis of both knees Discharge Disposition: Home or Self Care 02/14/2023 Travel 02/07/2023 Travel 02/07/2023 8:40 AM EST Telemedicine [facility] [address] [place] [address] Butch Vann MD Severe episode of recurrent major depressive disorder, without psychotic features (HCC) (Primary Dx); OLIVE (generalized anxiety disorder) Discharge Disposition: Home or Self Care 02/01/2023 Telephone [facility] [address] [place] [address] Butch Vann MD rx refill 01/25/2023 Telephone [facility] Orthopaedics, General - [facility] [address] [facility] [address] [address] Nighat Sotelo Referral urgent care referral 01/24/2023 8:25 AM EST - 01/24/2023 11:59 PM EST Hospital Encounter Diagnostic Imaging - [address] [address] Devorah Wiggins PA-C Discharge Disposition: Home or Self Care 01/24/2023 8:20 AM EST - 01/24/2023 8:24 AM EST Hospital Encounter Diagnostic Imaging - [address] [address] Devorah Wiggins PA-C Discharge Disposition: Home or Self Care 01/24/2023 8:15 AM EST - 01/24/2023 8:19 AM EST Hospital Encounter Diagnostic Imaging - [address] [address] Devorah Wiggins PA-C Discharge Disposition: Home or Self Care 01/24/2023 8:10 AM EST - 01/24/2023 8:14 AM EST Hospital Encounter Diagnostic Imaging - [address] [address] Devorah Wiggins PA-C Discharge Disposition: Home or Self Care 01/24/2023 Travel 01/24/2023 7:30 AM EST Office Visit Urgent Care - [address] [address] Devorah Wiggins PA-C Acute pain of right shoulder (Primary Dx); Right elbow pain; Acute pain of both knees Discharge Disposition: Home or Self Care 12/09/2022 Travel 12/09/2022 7:55 AM EDT Office Visit Urgent [facility] - [address] [address] Vanesa Doan, HECTOR Viral illness (Primary Dx); Sore throat; Fatigue, unspecified type Discharge Disposition: Home or Self Care 12/06/2022 Telephone [facility] [address] [place] [address] Elke Waldron LPN 11/25/2022 Travel 11/25/2022 8:40 AM EDT Office Visit Pulmonary & Critical Care - [facility] [address] [place] [address] Darwin Hatfield MD Lung nodule, solitary (Primary Dx); Axillary lymphadenopathy Discharge Disposition: Home or Self Care 11/24/2022 Travel 11/22/2022 Telephone Pulmonary & Critical Care [facility] [address] [place] [address] Darwin Hatfield MD Pt needs earlier appt 11/19/2022 Telephone [facility] Neurology [address] [place] [place] [address] Mary Hernandez NP 11/15/2022 Travel 11/15/2022 8:40 AM EDT Telemedicine [facility] [address] [place] [address] Butch Vann MD Severe episode of recurrent major depressive disorder, without psychotic features (HCC) (Primary Dx); OLIVE (generalized anxiety disorder) Discharge Disposition: Home or Self Care 11/10/2022 Travel 11/10/2022 3:30 PM EDT - 11/10/2022 11:59 PM EDT Hospital Encounter CT Imaging - [facility] [address] [place] [address] Alejandrina Kathleen DO Discharge Disposition: Home or Self Care 11/09/2022 Telephone [facility] [address] [place] [address] Butch Vann MD RX refill 10/29/2022 Telephone Orthopaedics - [facility] [address] [place] [address] Self, A Referral urgent care referral 10/29/2022 8:07 AM EDT - 10/29/2022 11:59 PM EDT Hospital Encounter Diagnostic Imaging - [facility] [address] [place] [address] Floridalma Zuniga PA-C Discharge Disposition: Home or Self Care 10/29/2022 Travel 10/29/2022 7:50 AM EDT Office Visit Urgent Care - [address] [address] Floridalma Zuniga PA-C Acute pain of left shoulder (Primary Dx); Calcific tendonitis of left shoulder Discharge Disposition: Home or Self Care 10/26/2022 Travel 10/26/2022 8:00 AM EDT Office Visit [facility] Neurology [address] [place] [address] Mary Hernandez NP Nocturnal hypoxia (Primary Dx); Obstructive sleep apnea syndrome Discharge Disposition: Home or Self Care 09/30/2022 10:27 AM EDT - 09/30/2022 11:59 PM EDT Hospital Encounter Diagnostic Imaging - [address] [address] Floridalma Zuniga PA-C Discharge Disposition: Home or Self Care 09/30/2022 Travel 09/30/2022 10:05 AM EDT Office Visit Urgent Care - [facility] [address] [facility] [place] [address] Floridalma Zuniga PA-C COVID-19 (Primary Dx); Sore throat Discharge Disposition: Home or Self Care 09/27/2022 Travel 09/27/2022 8:20 AM EDT Telemedicine [facility] [address] [facility] [place] [address] Butch Vann MD Severe episode of recurrent major depressive disorder, without psychotic features (HCC) (Primary Dx); OLIVE (generalized anxiety disorder) Discharge Disposition: Home or Self Care 09/13/2022 Telephone [facility] [address] [place] [address] Butch Vann MD Medication Possible Side Effects 08/30/2022 Telephone [facility] Internal Medicine - [address] [address] Day Iraheta MD Medication Refill 08/30/2022 Travel 08/30/2022 8:20 AM EDT Telemedicine [facility] [address] [place] [address] Butch Vann MD Severe episode of recurrent major depressive disorder, without psychotic features (HCC) (Primary Dx); OLIVE (generalized anxiety disorder) Discharge Disposition: Home or Self Care 08/27/2022 Travel 08/27/2022 8:00 AM EDT Initial consult Diabetes Education - [facility] [address] [place] [address] Prediabetes Discharge Disposition: Home or Self Care 08/26/2022 5:37 PM EDT - 08/26/2022 11:59 PM EDT Hospital Encounter Diagnostic Imaging - [facility] [address] [facility] [address] [place] [address] Bria Tam PA-C Discharge Disposition: Home or Self Care 08/26/2022 Travel 08/26/2022 5:30 PM EDT Office Visit Urgent Care - [facility] [address] [place] [address] Bria Tam PA-C Community acquired pneumonia of right lower lobe of lung (Primary Dx); Sore throat; Cough, unspecified type Discharge Disposition: Home or Self Care 08/26/2022 Telephone Hematology and Oncology [facility] [address] [place] [address] Alejandrina Kathleen, 08/26/2022 Tumor Board Hematology and Oncology [facility] [address] [place] [address] Elizabeth Snell RN 08/25/2022 Telephone Pulmonary & Critical Care [address] [place] [address] Darwin Hatfield MD medical concerns 08/23/2022 Orders Only Pulmonary [place] [address] Alejandrina Kathleen DO Lung nodule, solitary (Primary Dx) 08/23/2022 Telephone [facility] Pulmonology [address] [place] [address] Amilcar Adams MD Results 08/11/2022 8:21 AM EDT Anesthesia Event [facility] [place] [address] Dhiraj Perez MD Petersen, Ronald Kyle, JHONATHAN 08/11/2022 7:49 AM EDT - 08/11/2022 11:59 PM EDT Hospital Encounter [place] [address] Alejandrina Kathleen, Discharge Disposition: Home or Self Care 08/11/2022 Travel 08/11/2022 7:17 AM EDT - 08/11/2022 7:48 AM EDT Hospital Encounter [facility] [place] [address] Dariwn Hatfield MD Petersen, Ronald Kyle, CRNA Discharge Disposition: Home or Self Care 08/09/2022 Telephone [facility] Internal Medicine - [address] [phone] Day Iraheta MD Nurse Triage-patient 08/06/2022 Travel 08/06/2022 8:00 AM EDT Telemedicine [facility] [address] [place] [address] Butch Vann MD Severe episode of recurrent major depressive disorder, without psychotic features (HCC) (Primary Dx); OLIVE (generalized anxiety disorder) Discharge Disposition: Home or Self Care 07/28/[address] [address] Butch Vann MD Advise 07/27/2022 Travel 07/27/2022 8:30 AM EDT - 07/27/2022 11:59 PM EDT Hospital Encounter CT Imaging - [place] [address] [place] [address] Darwin Hatfield MD Discharge Disposition: Home or Self Care 07/26/2022 Travel 07/20/2022 Telephone [facility] Pulmonology [facility] [address] [place] [phone] Amilcar Adams MD pet authorization 07/15/2022 8:40 AM EDT Lab Visit [facility] Phlebotomy - [address] [phone] Iron deficiency anemia, unspecified iron deficiency anemia type; Paroxysmal atrial fibrillation (HCC); Prediabetes; Vitamin D deficiency; Pain in both hands Discharge Disposition: Home or Self Care 07/15/2022 Travel 07/15/2022 8:00 AM EDT Office Visit [facility] Internal Medicine [address] [address] Gerda Mancia PA-C Pain in both hands (Primary Dx); Paroxysmal atrial fibrillation (HCC); Other secondary hypertension; Postoperative hypothyroidism; Dyslipidemia; Iron deficiency anemia, unspecified iron deficiency anemia type; Morbid obesity (HCC); Vitamin D deficiency; Prediabetes Discharge Disposition: Home or Self Care 07/12/2022 Telephone [facility] Internal Medicine - [address] [address] Day Iraheta MD 07/12/2022 Telephone [facility] Internal Medicine - [address] [phone] Day Iraheta MD [facility] 07/08/2022 Orders Only Pulmonary & Critical Care [place] [address] Darwin Hatfield MD Pulmonary parenchymal mass (Primary Dx) 07/08/2022 Tumor Board Hematology and Oncology - [facility] [address] [place] [phone] Jodie Tamayo RN 07/08/2022 Telephone Pulmonary & Critical Care [address] [place] [address] Amilcar Adams MD 06/29/2022 [facility] 06/29/2022 8:36 AM EDT - 06/29/2022 11:59 PM EDT Hospital Encounter PET Imaging - [facility] [address] [place] [address] Amilcar Adams MD Discharge Disposition: Home or Self Care 06/29/2022 8:35 AM EDT Hospital Encounter PET Imaging [facility] [address] [place] [address] Amilcar Adams MD Discharge Disposition: Home or Self Care 06/15/2022 Telephone [facility] Pulmonology [address] [place] [place] [phone] Amilcar Adams MD clinical 06/14/2022 Telephone [facility] Neurology - [address] [place] [address] Mary Hernandez NP sleep study results 06/14/2022 7:49 AM EDT - 06/14/2022 11:59 PM EDT Hospital Encounter [facility] Imaging Film Library [address] [place] [address] Gayle Zimmer MD Discharge Disposition: Home or Self Care 06/14/2022 7:48 AM EDT Hospital Encounter [facility] Imaging Film Library [place] [address] [place] [address] Gayle Zimmer MD Discharge Disposition: Home or Self Care 06/11/2022 Travel 06/11/2022 9:20 AM EDT Initial consult [facility] Pulmonology - [address] [place] [address] Amilcar Adams MD Lung nodule, solitary (Primary Dx); Lung density on x-ray Discharge Disposition: Home or Self Care 06/07/2022 Travel 06/07/2022 2:00 PM EDT Initial consult [facility] Behavioral Health [address] [place] [address] Julia Serrano, WHITE WASHER BARREL PLANER Severe episode of recurrent major depressive disorder, without psychotic features (HCC) (Primary Dx) Discharge Disposition: Home or Self Care 06/04/2022 Orders Only [facility] Internal Medicine - [facility] [address] [place] [address] Saravanan Herrera MD Lung density on x-ray (Primary Dx) 06/03/2022 Telephone [facility] Internal Medicine - [facility] [address] [place] [address] Day Iraheta MD traige 06/02/2022 Telephone [facility] Internal Medicine - [facility] [address] [place] [address] Day Iraheta MD Referral Request 06/01/2022 Telephone [facility] Neurology [address] [place] [address] Mary Hernandezee, PHOTO PRINT SPECIALIST 05/25/2022 Travel 05/25/2022 8:00 PM EDT - 05/25/2022 11:59 PM EDT Hospital Encounter [facility] Sleep Medicine [address] [place] [address] Discharge Disposition: Home or Self Care 05/24/2022 Telephone [facility] Neurology [address] [place] [address] Mary Hernandezee, PHOTO PRINT SPECIALIST ? about a sleep study 05/24/2022 9:20 AM EDT Telemedicine [address] [place] [address] Butch Vann MD OLIVE (generalized anxiety disorder) (Primary Dx) Discharge Disposition: Home or Self Care 05/19/2022 Travel 05/19/2022 1:00 PM EDT Office Visit [address] [place] [address] Mary Hernandez, PHOTO PRINT SPECIALIST Obstructive sleep apnea syndrome (Primary Dx) Discharge Disposition: Home or Self Care 05/18/2022 Telephone [facility] Internal Medicine [address] [place] [address] Day Iraheta MD mess 05/18/2022 Telephone [facility] Neurology [address] [place] [address] Mary Hernandezee, PHOTO PRINT SPECIALIST Insurance Question 05/18/2022 Travel 05/14/2022 Telephone [facility] Internal Medicine [facility] [address] [place] [address] Day Iraheta MD mess 05/14/2022 Telephone [facility] Neurology [place] [address] [place] [address] Mary Hernandez NP 05/14/2022 Plan of Care Documentation Physical Therapy - [facility] [address] [place] [address] 05/14/2022 Travel 05/14/2022 9:30 AM EDT Treatment Physical Therapy - [facility] [address] [place] [address] Amy Chen, PT Muscle weakness (Primary Dx); Nocturia; Urinary frequency; OAB (overactive bladder); Muscle spasm Discharge Disposition: Home or Self Care 05/12/2022 Travel 05/12/2022 8:00 PM EDT - 05/12/2022 11:59 PM EDT Hospital Encounter [facility] Sleep Medicine [address] [place] [address] Discharge Disposition: Home or Self Care 05/11/2022 Documentation Physical Therapy - [facility] [address] [place] [phone] Amy Chen, PT 05/10/2022 Travel 05/10/2022 1:40 PM EDT Return Patient [facility] Behavioral Health - [facility] [address] [place] [address] Butch Vann MD OLIVE (generalized anxiety disorder) (Primary Dx) Discharge Disposition: Home or Self Care 05/10/2022 12:40 PM EDT Office Visit [facility] Internal Medicine - [address] [address] Day Iraheta MD Morbid obesity (HCC) (Primary Dx); Dyslipidemia; Fibromyalgia; Severe episode of recurrent major depressive disorder, without psychotic features (HCC) Discharge Disposition: Home or Self Care 05/07/2022 Travel 05/07/2022 Telephone Urological Gynecology - [facility] [address] [place] [address] Alejandrina Baum MD Nurse Visit 05/06/2022 Travel 05/06/2022 2:30 PM EST Initial consult Urological Gynecology - [address] [place] [address] Alejandrina Baum MD OAB (overactive bladder) (Primary Dx); Urinary frequency; Nocturia; Abnormal urine findings; Vaginal atrophy; Pelvic floor weakness Discharge Disposition: Home or Self Care 05/05/2022 Telephone [facility] [address] [place] [address] Butch Vann MD BH:medication 05/04/2022 Telephone [facility] [address] [place] [address] Butch Vann MD rx 05/04/2022 Telephone [facility] Internal Medicine - [address] [address] Marry Zimmerman, [facility] Mental Health Medications 05/04/2022 Orders Only [facility] Internal Medicine - [address] [address] Day Iraheta MD 05/03/2022 Telephone [facility] Internal Medicine [address] [address] Day Iraheta MD mess 04/27/2022 Travel 04/27/2022 9:00 AM EST Initial consult [facility] [address] [place] [address] Butch Vann MD OLIVE (generalized anxiety disorder) Discharge Disposition: Home or Self Care 04/15/2022 11:45 AM EST - 04/15/2022 11:59 PM EST Hospital Encounter Imaging Film Library - [facility] [address] [place] [address] Juancarlos Han MD Discharge Disposition: Home or Self Care 04/15/2022 11:44 AM EST Hospital Encounter Imaging Film Library - [address] [address] Juancarlos Han MD Discharge Disposition: Home or Self Care 04/15/2022 11:42 AM EST - 04/15/2022 11:43 AM EST Hospital Encounter Imaging Film Library - [address] [address] Juancarlos Han MD Discharge Disposition: Home or Self Care 04/15/2022 11:40 AM EST - 04/15/2022 11:41 AM EST Hospital Encounter Imaging Film Library [address] [address] Juancarlos Han MD Discharge Disposition: Home or Self Care 04/14/2022 Abstract [facility] Internal Medicine - [address] [facility] [address] Marry Zimmerman, SINGH 04/12/2022 Travel 04/12/2022 1:20 PM EST Initial consult [facility] Neurology [facility] [address] [facility] [address] Mary Hernandez NP Obstructive sleep apnea syndrome Discharge Disposition: Home or Self Care 04/12/2022 8:54 AM EST - 04/12/2022 11:59 PM EST Hospital Encounter Mammography - [facility] [address] [place] [address] Day Iraheta MD Discharge Disposition: Home or Self Care 04/07/2022 Orders Only [facility] Internal Medicine - [facility] [address] [place] [address] Day Iraheta MD Nocturia (Primary Dx) 04/05/2022 Orders Only [facility] Internal Medicine - [facility] [address] [place] [address] Day Iraheta MD Attention deficit disorder, unspecified hyperactivity presence (Primary Dx) 04/02/2022 Orders Only [facility] Internal Medicine - [address] [place] [address] Day Iraheta MD 03/31/2022 Travel 03/31/2022 11:40 AM EST Office Visit [facility] Internal Medicine [address] [place] [address] Day Iraheta MD Screening mammogram for breast cancer (Primary Dx); Vaginal yeast infection; Encounter for Medicare annual wellness exam Discharge Disposition: Home or Self Care 03/30/2022 Orders Only [address] [place] [address] Day Iraheta MD Prediabetes (Primary Dx); Vitamin D deficiency 03/29/2022 Telephone [facility] Internal [address] [place] [address] Day Iraheta MD mess 03/29/2022 10:40 AM EST Lab Visit [facility] Phlebotomy - [address] [place] [address] Encounter for health maintenance examination in adult Discharge Disposition: Home or Self Care 03/29/2022 Travel 03/29/2022 11:20 AM EST Office Visit [facility] Internal [address] [place] [address] Day Iraheta MD Cough, unspecified type (Primary Dx); Sore throat; [place] eye disease of left eye; Encounter for health maintenance examination in adult; Obstructive sleep apnea syndrome Discharge Disposition: Home or Self Care 03/25/2022 Travel 07/31/2021 Telephone [facility] Internal [address] [place] [address] Katie Alcala, [facility] Appointment 07/31/2021 Orders Only [facility] Internal Medicine - [address] [place] [address] Day Iraheta MD Preop cardiovascular exam (Primary Dx) 01/26/2021 Telephone [facility] Internal Medicine - [address] [place] [address] Day Iraheta MD mess 01/19/2021 Travel 01/19/2021 1:00 PM EST Initial consult [facility] Internal Medicine - [address] [place] [address] Day Iraheta MD Paroxysmal atrial fibrillation (HCC) (Primary Dx); Other secondary hypertension; Obstructive sleep apnea syndrome; Postoperative hypothyroidism; Morbid obesity (HCC); History of thyroid cancer; Dyslipidemia; Anxiety; Vitamin D deficiency; Encounter for health maintenance examination in adult; Non compliance w medication regimen; Abnormal LFTs (liver function tests) Discharge Disposition: Home or Self Care Allergies Active Allergy Reactions Criticality Noted Date Comments Penicillins Rash (ALLERGY/intolerance) Low 03/31/19 10 Trouble Breathing Lamotrigine Rash (ALLERGY/intolerance) Low 03/19/19 20 Medications Medication Sig Dispensed Refills Start Date End Date Status metFORMIN XR (GLUCOPHAGE-XR) 750 MG 24 hr tabletIndications: Prediabetes Take 1 tablet (750 mg total) by mouth daily with breakfast. 90 tablet 3 03/30/2022 Active fluticasone propionate (FLONASE) 50 mcg/actuation nasal spray Administer 2 sprays into affected nostril daily. 0 Active losartan (COZAAR) 100 MG tablet Take 1 tablet (100 mg total) by mouth daily. 90 tablet 0 07/12/2022 Active acetaminophen (TYLENOL) 325 MG tablet TK 2 TO 3 TS PO Q 6 H PRN P. NOT TO EXCEED 4000MG PER DAY 0 Active albuterol 2.5 mg /3 mL (0.083 %) nebulizer solution INL 1 VIAL VIA NEBULIZER Q 4 H PRN WHEEZING 0 Active azelastine (ASTELIN) 137 mcg (0.1 %) nasal spray 0 Active cholecalciferol, vitamin D3, 1,250 mcg (50,000 unit) capsule TK 1 C PO Q WEEK FOR 8 WEEKS 0 Active ergocalciferol (VITAMIN D2) 1,250 mcg (50,000 unit) capsule 0 Active hydroCHLOROthiazid e (HYDRODIURIL) 25 MG tablet Take 1 tablet (25 mg total) by mouth daily. 0 09/21/2022 Active gabapentin (NEURONTIN) 300 MG capsule Take 1 capsule by mouth twice daily 180 capsule 0 12/02/2022 Active QUEtiapine (SEROQUEL) 50 MG tablet Take 1 at night 90 tablet 1 02/07/2023 Active buPROPion XL (WELLBUTRIN XL) 300 MG 24 hr tabletIndications: / Take 1 a day in morning. 90 tablet 1 02/07/2023 Active meloxicam (MOBIC) 15 MG tablet Take 1 tablet by mouth once daily 30 tablet 0 04/12/2023 Active Active Problems Problem Noted Date Diagnosed Date Trigger ring finger 02/15/2023 Axillary lymphadenopathy 11/25/2022 Pain in both hands 07/13/2022 Prediabetes 07/13/2022 Lung nodule, solitary 06/11/2022 Asthma, mild intermittent 01/19/2021 Other secondary hypertension 01/19/2021 Postoperative hypothyroidism 09/15/2017 Anxiety 10/18/2016 Carpal tunnel syndrome 10/18/2016 Overview: Bilateral carpal tunnel release ~ 2003. Symptomatic again 2009 Vitamin D deficiency 10/18/2016 History of thyroid cancer 09/29/2015 Overview: Papillary microcarcinoma resected 07/2012. F/u US 01/2013 negative, no further follow up recommended Primary osteoarthritis of both knees 08/21/2015 Overview: Mild on xray 2016 Morbid obesity 06/05/2015 Dyslipidemia 11/08/2014 Depression 06/03/2014 Chronic low back pain 06/03/2014 Iron deficiency anemia 06/03/2014 Fibromyalgia 12/07/2012 Overview: Follows with Neuro Obstructive sleep apnea syndrome 05/30/2012 Overview: [facility] Polysomnogram: Date 12/08/2016; Wt 237# SE 90%; SM 91%; REM 18%; RDI 18 (AHI 15), worse in REM (RDI 66 - AHI 65), Central apneas 0; Obstructive apneas 24; Mixed apneas 0; hypopneas 81; RERAs 18; average oxygen saturation 95% (lowest 74% - with saturations <88% for 5% or more of study); PLMs 4. [facility] Polysomnogram treatment study. Date 02/02/2017 . SE 93 % SM 93 %; spent 30 % of the study in REM. At the optimal pressure of CPAP @ 11; RDI 1 (AHI 0.6), Central apneas 0; Obstructive apneas 0; Mixed apneas 0; hypopneas 3; RERAs 2; and, average oxygen saturation was 95%. For the entire study, PLMs ~8. Atrial fibrillation Non compliance w medication regimen Immunizations Name Administration Dates Next Due Hepatitis B (Historical) 11/30/2007 Influenza (Historical) 12/04/2009 Tdap (ADACEL, BOOSTRIX) 12/04/2009 measles 11/30/2007 mumps 11/30/2007 tuberculin PPD Test (APLISOL , TUBERSOL) 09/15/2017,03/06/2012,12/04/2010, 010 Family History Medical History Relation Comments Sleep disorder Daughter Diabetes Father Heart disease Father Hyperlipidemia Father Hypertension Father Diabetes Mother Hyperlipidemia Mother Hypertension Mother Sleep disorder Mother Breast cancer Other Relation Status Comments Daughter Alive Father Alive Mother Alive Other Social History Smoking Status as of 03/28/2024 Tobacco Use Types Packs/Day Years Used Date Smoking Tobacco: Never Assessed Humiliation, Afraid, Rape, and Kick questionnair e [...] week 03/25/2022 How often do you attend [facility] or shinto services? More than 4 times per year 03/25/2022 Do you belong to any clubs o r organizations such as mosque groups, unions, fraternal or athletic groups, or [...] very hard 03/25/2022 PHQ-2 Answer Date Recorded [facility] PHQ2 SCORE 0 02/24/2023 [facility] - Occupational Stress [...] place to sleep or slept in a retirement (including now)? No 03/25/2022 Sex and Gender Information Value Date Recorded Sex Assigned at Female 01/19/2021 3:54 PM EST Gender Identity Female 01/19/2021 3:54 PM EST Sexual Orientation Not on file Last Filed Vital Signs Vital Sign Reading Time Taken Comments Blood Pressure 129/80 02/24/2023 8:42 AM EST Pulse 80 02/24/2023 8:42 AM EST Temperature 36.7 ??C (98.1 ??F) 02/24/2023 8:42 AM ES T Respiratory Rate 18 01/24/2023 7:39 AM EST Oxygen Saturation 92% 02/24/2023 8:42 AM EST Inhaled Oxygen Concentration - - Weight 105.1 kg (231 lb 12.8 oz) 02/24/2023 8:42 AM EST Height 160 cm (5' 2.99 ) 02/24/2023 8:42 AM EST Body Mass Index 41.07 02/24/2023 8:42 AM EST Plan of Treatment Not on file Procedures Procedure Name Priority Date/Time Associated Diagnosis Comments CT CHEST WO CONTRAST Routine 02/16/2023 8:27 AM EST Lung nodule, solitary XR HAND RIGHT (ROUTINE: AP,LAT,OBL) Routine 02/16/2023 8:02 AM EST Trigger ring finger, unspecified laterality XR HAND LEFT (ROUTINE: AP,LAT,OBL) Routine 02/16/2023 8:01 AM EST Trigger ring finger, unspecified laterality XR SHOULDER RT 2 OR MORE VIEWS STAT 01/24/2023 9:06 AM EST Acute pain of right shoulder XR ELBOW RIGHT (LIMITED: AP,LAT) STAT 01/24/2023 9:06 AM EST Right elbow pain XR KNEE LT 3 VIEWS STAT 01/24/2023 9: 06 AM EST Acute pain of both knees XR KNEE RT 3 VIEWS STAT 01/24/2023 9: 06 AM EST Acute pain of both knees COVID-19 AND INFLUENZA A/B PCR Routine 12/09/2022 8:44 AM EDT Viral illness POCT COVID BD Routine 12/09/2022 8:38 AM EDT Viral illness POCT RAPID STREP A Routine 12/09/2022 8: 24 AM EDT Sore throat POCT INFLUENZA A/B Routine 12/09/2022 8: 23 AM EDT Fatigue, unspecified type CT CHEST WO CONTRAST Routine 11/10/2022 3:53 PM EDT Lung nodule, solitary XR SHOULDER LT 2 OR MORE VIEWS STAT 10/29/2022 8:19 AM EDT Acute pain of left shoulder XR CHEST PA AND LATERAL STAT 09/30/2022 10:43 AM EDT Sore throat POCT RAPID STREP A Routine 09/30/2022 10 :40 AM EDT Sore throat POCT RAPID STREP A STAT 08/26/2022 5: 59 PM EDT Sore throat XR CHEST PA AND LATERAL STAT 08/26/2022 5:45 PM EDT Cough, unspecified type BRONCHOSCOPY Routine 08/11/2022 10:06 AM EDT Pulmonary parenchymal mass TISSUE CULTURE Timed 08/11/2022 9:45 AM EDT Pulmonary parenchymal mass Lung nodule, solitary CYTOLOGY, FINE NEEDLE ASPIRATION (FNA) Routine 08/11/2022 9:13 AM EDT Pulmonary parenchymal mass Lung nodule, solitary ANESTHESIA ETT Routine 08/11/2022 8:38 AM EDT FL FLUOROSCOPY NON RAD < 1HR ENDOSCOPY ORDER Routine 08/11/2022 7:49 AM EDT Pulmonary parenchymal mass Lung nodule, solitary CT CHEST WO CONTRAST Routine 07/27/2022 8:57 AM EDT Pulmonary parenchymal mass CRP, NON-CARDIAC Routine 07/15/2022 8:36 AM EDT Pain in both hands SEDIMENTATION RATE (ESR) Routine 07/15/2022 8:36 AM EDT Pain in both hands RA FACTOR SCREEN Routine 07/15/2022 8:36 AM EDT Pain in both hands ANTINUCLEAR ANTIBODIES, HEP-2 SUBSTRATE, IGG, SERUM ([facility]) Routine 07/15/2022 8:36 AM EDT Pain in both hands 25(OH) VITAMIN D TOTAL Routine 07/15/2022 8:36 AM EDT Vitamin D deficiency HEMOGLOBIN A1C Routine 07/15/2022 8:36 AM EDT Prediabetes BASIC METABOLIC PANEL Routine 07/15/2022 8:36 AM EDT Paroxysmal atrial fibrillation (HCC) Iron deficiency anemia, unspecified iron deficiency anemia type Prediabetes CBC Routine 07/15/2022 8:36 AM EDT Iron deficiency anemia, unspecified iron deficiency anemia type PET LUNG CANCER OR PULMONARY NODULE (W/LOW DOSE CT) Routine 06/29/2022 1:00 PM EDT Lung nodule, solitary POCT GLUCOSE Routine 06/29/2022 10:36 AM EDT ARCHIVE IMAGE ONLY (NO INTERPRETATION) Routine 06/14/2022 7:50 AM EDT ARCHIVE IMAGE ONLY (NO INTERPRETATION) Routine 06/14/2022 7:49 AM EDT PAP > 17 YEARS OLD Routine 05/29/2022 4: 35 PM EDT JUSTYNA (obstructive sleep apnea) SPLIT NIGHT Routine 05/14/2022 2:09 PM EDT Obstructive sleep apnea syndrome URINE MICROSCOPIC ONLY Routine 05/06/2022 8:16 PM EST Abnormal urine findings URINE CULTURE Routine 05/06/2022 8:16 PM EST Abnormal urine findings POCT URINE DIPSTICK MANUAL NO SCOPE Routine 05/06/2022 3:07 PM EST Urinary frequency ARCHIVE IMAGE ONLY (NO INTERPRETATION) Routine 04/15/2022 11:58 AM EST ARCHIVE IMAGE ONLY (NO INTERPRETATION) Routine 04/15/2022 11:57 AM EST ARCHIVE IMAGE ONLY (NO INTERPRETATION) Routine 04/15/2022 11:57 AM EST ARCHIVE IMAGE ONLY (NO INTERPRETATION) Routine 04/15/2022 11:57 AM EST MG MAMMOGRAM SCREENING BILATERAL W JADE Routine 04/12/2022 9:19 AM EST Screening mammogram for breast cancer HM FIT-DNA STOOL TEST Routine 04/07/2022 POCT RAPID STREP A Routine 03/29/2022 10 :41 AM EST Sore throat POCT INFLUENZA A/B Routine 03/29/2022 10 :39 AM EST Cough, unspecified type Sore throat POCT COVID BD Routine 03/29/2022 10:38 AM EST Cough, unspecified type Sore throat CBC WITH AUTO DIFFERENTIAL PANEL Routine 03/29/2022 10:38 AM EST Encounter for health maintenance examination in adult B12, VITAMIN Routine 03/29/2022 10:38 AM EST Encounter for health maintenance examination in adult 25(OH) VITAMIN D TOTAL Routine 03/29/2022 10:38 AM EST Encounter for health maintenance examination in adult HEMOGLOBIN A1C Routine 03/29/2022 10:38 AM EST Encounter for health maintenance examination in adult TSH, 3RD GENERATION Routine 03/29/2022 1 0:38 AM EST Encounter for health maintenance examination in adult LIPID PROFILE Routine 03/29/2022 10:38 AM EST Encounter for health maintenance examination in adult COMPREHENSIVE METABOLIC PANEL Routine 03/29/2022 10:38 AM EST Encounter for health maintenance examination in adult CBC AND DIFFERENTIAL Routine 03/29/2022 10:38 AM EST Encounter for health maintenance examination in adult CBC WITH AUTO DIFFERENTIAL PANEL Routine 01/19/2021 2:00 PM EST Encounter for health maintenance examination in adult CBC AND DIFFERENTIAL Routine 01/19/2021 2:00 PM EST Encounter for health maintenance examination in adult COMPREHENSIVE METABOLIC PANEL Routine 01/19/2021 2:00 PM EST Encounter for health maintenance examination in adult LIPID PROFILE Routine 01/19/2021 2:00 PM EST Dyslipidemia Encounter for health maintenance examination in adult TSH, 3RD GENERATION Routine 01/19/2021 2 :00 PM EST Encounter for health maintenance examination in adult HEMOGLOBIN A1C Routine 01/19/2021 2:00 PM EST Encounter for health maintenance examination in adult 25(OH) VITAMIN D TOTAL Routine 01/19/2021 2:00 PM EST Vitamin D deficiency Encounter for health maintenance examination in adult B12, VITAMIN Routine 01/19/2021 2:00 PM EST Encounter for health maintenance examination in adult Results * CT CHEST WO CONTRAST (02/16/2023 8:27 AM EST) Anatomical Region Laterality Modality Chest Computed Tomogra phy 02/18/2023 10:1 2 PM EST Narrative 02/18/2023 10:32 PM EST CLINICAL DATA: ??Lung nodule, > 8mm; follow-up lung nodule. Thyroid cancer EXAM: CT CHEST WITHOUT CONTRAST TECHNIQUE: Multidetector CT imaging of the chest was performed following the standard protocol without IV contrast. RADIATION DOSE REDUCTION: This exam was performed according to the departmental dose-optimization program which includes automated exposure control, adjustment of the mA and/or kV according to patient size and/or use of iterative reconstruction technique. COMPARISON: ??11/10/2022, 07/27/2022 FINDINGS: Cardiovascular: No significant coronary artery calcification. Global cardiac size within normal limits. No pericardial effusion. Central pulmonary arteries are of normal caliber. Mild atherosclerotic calcification within the thoracic aorta. No aortic aneurysm. Mediastinum/Nodes: Status post right thyroidectomy. Stable shotty mediastinal and left axillary adenopathy with the index lymph node within the left axilla measuring 12 mm in short axis diameter at axial image # 16/2. No new pathologic thoracic adenopathy. Esophagus unremarkable. Lungs/Pleura: Spiculated nodule within the a peripheral right middle lobe demonstrating pleural retraction and postobstructive collapse of the peripheral lateral segment the right middle lobe is stable in size when accounting for changes in slice selection measuring 8 x 9 x 15 mm on axial image # 71/3 and sagittal image # 33/6. No additional focal pulmonary nodules or infiltrates. No pneumothorax or pleural effusion. Central airways are patent. Upper Abdomen: No acute abnormality. Musculoskeletal: No acute bone abnormality. No lytic or blastic bone lesion. IMPRESSION: 1. Stable spiculated nodule within the peripheral right middle lobe demonstrating pleural retraction and postobstructive collapse of the peripheral lateral segment the right middle lobe since remote prior examination of 07/27/2022. Though non hypermetabolic on PET CT examination of 06/29/2022, indolent adenocarcinoma remains a consideration and continued follow-up evaluation in 6-12 months is recommended.. 2. Stable shotty mediastinal and left axillary adenopathy, nonspecific though left axillary adenopathy did appear hypermetabolic on prior PET CT examination of 06/29/2022. Again, close attention on follow-up examination is warranted. 3. Status post right thyroidectomy. Aortic Atherosclerosis ([id number]-R12.0). Electronically Signed ??By: Swati ??Alo Foss ??On: 02/18/2023 22:32 Procedure Note Swati Prajapati MD - 02/18/2023 CLINICAL DATA: Lung nodule, > 8mm; follow-up lung nodule. Thyroid cancer EXAM: CT CHEST WITHOUT CONTRAST TECHNIQUE: Multidetector CT imaging of the chest was performed following the standard protocol without IV contrast. RADIATION DOSE REDUCTION: This exam was performed according to the departmental dose-optimization program which includes automated exposure control, adjustment of the mA and/or kV according to patient size and/or use of iterative reconstruction technique. COMPARISON: 11/10/2022, 07/27/2022 FINDINGS: Cardiovascular: No significant coronary artery calcification. Global cardiac size within normal limits. No pericardial effusion. Central pulmonary arteries are of normal caliber. Mild atherosclerotic calcification within the thoracic aorta. No aortic aneurysm. Mediastinum/Nodes: Status post right thyroidectomy. Stable shotty mediastinal and left axillary adenopathy with the index lymph node within the left axilla measuring 12 mm in short axis diameter at axial image # 16/2. No new pathologic thoracic adenopathy. Esophagus unremarkable. Lungs/Pleura: Spiculated nodule within the a peripheral right middle lobe demonstrating pleural retraction and postobstructive collapse of the peripheral lateral segment the right middle lobe is stable in size when accounting for changes in slice selection measuring 8 x 9 x 15 mm on axial image # 71/3 and sagittal image # 33/6. No additional focal pulmonary nodules or infiltrates. No pneumothorax or pleural effusion. Central airways are patent. Upper Abdomen: No acute abnormality. Musculoskeletal: No acute bone abnormality. No lytic or blastic bone lesion. IMPRESSION: 1. Stable spiculated nodule within the peripheral right middle lobe demonstrating pleural retraction and postobstructive collapse of the peripheral lateral segment the right middle lobe since remote prior examination of 07/27/2022. Though non hypermetabolic on PET CT examination of 06/29/2022, indolent adenocarcinoma remains a consideration and continued follow-up evaluation in 6-12 months is recommended.. 2. Stable shotty mediastinal and left axillary adenopathy, nonspecific though left axillary adenopathy did appear hypermetabolic on prior PET CT examination of 06/29/2022. Again, close attention on follow-up examination is warranted. 3. Status post right thyroidectomy. Aortic Atherosclerosis (NWP54-C74.0). Electronically Signed By: Swati Prajapati M.D. On: 02/18/2023 22:32 Darwin Hatfield MD IMG CT ORDERABLES * XR HAND RIGHT (ROUTINE: AP,LAT,OBL) (02/16/2023 8:02 AM EST) Anatomical Region Laterality Modality Hand, Wrist Digital Radiogra phy 02/18/2023 10:0 2 AM EST Narrative 02/18/2023 10:09 AM EST CLINICAL DATA: ??Bilateral hand pain. Bilateral hand trigger finger with all digits on each hand affected. EXAM: LEFT HAND - COMPLETE 3+ VIEW; RIGHT HAND - COMPLETE 3+ VIEW COMPARISON: ??None Available. FINDINGS: Mildly decreased bone mineralization. Right hand: Joint space narrowing, subchondral sclerosis, subchondral cystic change, and peripheral osteophytosis degenerative changes are severe at the fifth DIP, moderate to severe at the third and fourth DIP, moderate at the second DIP and fifth PIP, and mild at the second through fourth PIP and thumb interphalangeal joints. Igwi-dr-tdsekxbw thumb carpometacarpal joint space narrowing and peripheral osteophytosis. 2 mm ulnar negative variance. Left hand: Joint space narrowing, subchondral sclerosis, subchondral cystic change, and peripheral osteophytosis degenerative changes are severe at the third and fifth DIP joints, moderate to severe at the fourth DIP joint, moderate at the thumb interphalangeal joint, fifth PIP, and index finger DIP joint, mild at the second through fourth PIP joints. Moderate thumb carpometacarpal joint space narrowing and peripheral osteophytosis. 1 mm ulnar negative variance. No acute fracture or dislocation. No cortical erosion or periostitis. IMPRESSION: Arthritis in a distribution consistent with osteoarthritis, greatest within the bilateral third and fifth DIP joints and eafe-sgugvvh-pwkx-right thumb carpometacarpal joints. Electronically Signed ??By: Bubba ??Mary Jo Foss ??On: 02/18/2023 10:09 Procedure Note Bubba Camargo MD - 02/18/2023 CLINICAL DATA: Bilateral hand pain. Bilateral hand trigger finger with all digits on each hand affected. EXAM: LEFT HAND - COMPLETE 3+ VIEW; RIGHT HAND - COMPLETE 3+ VIEW COMPARISON: None Available. FINDINGS: Mildly decreased bone mineralization. Right hand: Joint space narrowing, subchondral sclerosis, subchondral cystic change, and peripheral osteophytosis degenerative changes are severe at the fifth DIP, moderate to severe at the third and fourth DIP, moderate at the second DIP and fifth PIP, and mild at the second through fourth PIP and thumb interphalangeal joints. Zxul-bf-geldvudi thumb carpometacarpal joint space narrowing and peripheral osteophytosis. 2 mm ulnar negative variance. Left hand: Joint space narrowing, subchondral sclerosis, subchondral cystic change, and peripheral osteophytosis degenerative changes are severe at the third and fifth DIP joints, moderate to severe at the fourth DIP joint, moderate at the thumb interphalangeal joint, fifth PIP, and index finger DIP joint, mild at the second through fourth PIP joints. Moderate thumb carpometacarpal joint space narrowing and peripheral osteophytosis. 1 mm ulnar negative variance. No acute fracture or dislocation. No cortical erosion or periostitis. IMPRESSION: Arthritis in a distribution consistent with osteoarthritis, greatest within the bilateral third and fifth DIP joints and vvba-kbofxho-yzyq-right thumb carpometacarpal joints. Electronically Signed By: Bubba Camargo M.D. On: 02/18/2023 10:09 Noam Salinas PA-C IMG DIAGN OSTIC IMAGING ORDERABLES * XR HAND LEFT (ROUTINE: AP,LAT,OBL) (02/16/2023 8:01 AM EST) Anatomical Region Laterality Modality Hand, Wrist Digital Radiogra phy 02/18/2023 10:0 2 AM EST Narrative 02/18/2023 10:09 AM EST CLINICAL DATA: ??Bilateral hand pain. Bilateral hand trigger finger with all digits on each hand affected. EXAM: LEFT HAND - COMPLETE 3+ VIEW; RIGHT HAND - COMPLETE 3+ VIEW COMPARISON: ??None Available. FINDINGS: Mildly decreased bone mineralization. Right hand: Joint space narrowing, subchondral sclerosis, subchondral cystic change, and peripheral osteophytosis degenerative changes are severe at the fifth DIP, moderate to severe at the third and fourth DIP, moderate at the second DIP and fifth PIP, and mild at the second through fourth PIP and thumb interphalangeal joints. Nrkh-qf-kfavokry thumb carpometacarpal joint space narrowing and peripheral osteophytosis. 2 mm ulnar negative variance. Left hand: Joint space narrowing, subchondral sclerosis, subchondral cystic change, and peripheral osteophytosis degenerative changes are severe at the third and fifth DIP joints, moderate to severe at the fourth DIP joint, moderate at the thumb interphalangeal joint, fifth PIP, and index finger DIP joint, mild at the second through fourth PIP joints. Moderate thumb carpometacarpal joint space narrowing and peripheral osteophytosis. 1 mm ulnar negative variance. No acute fracture or dislocation. No cortical erosion or periostitis. IMPRESSION: Arthritis in a distribution consistent with osteoarthritis, greatest within the bilateral third and fifth DIP joints and dfdb-mcvqfow-nfnx-right thumb carpometacarpal joints. Electronically Signed ??By: Bubba ??Mary Jo Foss ??On: 02/18/2023 10:09 Procedure Note Bubba Camargo MD - 02/18/2023 CLINICAL DATA: Bilateral hand pain. Bilateral hand trigger finger with all digits on each hand affected. EXAM: LEFT HAND - COMPLETE 3+ VIEW; RIGHT HAND - COMPLETE 3+ VIEW COMPARISON: None Available. FINDINGS: Mildly decreased bone mineralization. Right hand: Joint space narrowing, subchondral sclerosis, subchondral cystic change, and peripheral osteophytosis degenerative changes are severe at the fifth DIP, moderate to severe at the third and fourth DIP, moderate at the second DIP and fifth PIP, and mild at the second through fourth PIP and thumb interphalangeal joints. Naja-xm-ruhncioe thumb carpometacarpal joint space narrowing and peripheral osteophytosis. 2 mm ulnar negative variance. Left hand: Joint space narrowing, subchondral sclerosis, subchondral cystic change, and peripheral osteophytosis degenerative changes are severe at the third and fifth DIP joints, moderate to severe at the fourth DIP joint, moderate at the thumb interphalangeal joint, fifth PIP, and index finger DIP joint, mild at the second through fourth PIP joints. Moderate thumb carpometacarpal joint space narrowing and peripheral osteophytosis. 1 mm ulnar negative variance. No acute fracture or dislocation. No cortical erosion or periostitis. IMPRESSION: Arthritis in a distribution consistent with osteoarthritis, greatest within the bilateral third and fifth DIP joints and sfjg-wdgymld-zdws-right thumb carpometacarpal joints. Electronically Signed By: Bubba Camargo M.D. On: 02/18/2023 10:09 Noam Salinas PA-C IMG DIAGN OSTIC IMAGING ORDERABLES * XR SHOULDER RT 2 OR MORE VIEWS Grashey, Axillary, Scapula Y, AP (01/24/2023 9:06 AM EST) Anatomical Region Laterality Modality Shoulder, Chest, Arm Computed Ra diography 01/24/2023 9:17 AM EST Impressions 01/24/2023 9:19 AM EST 1. ??No acute fracture or malalignment. 2. ??Mild glenohumeral degenerative changes with small marginal spurring and mild additional degenerative subcortical stenosis and tiny spurring at the greater tuberosity with underlying small subcortical cysts. 3. ??Mild acromioclavicular degenerative changes. Narrative 01/24/2023 9:19 AM EST X-RAY RIGHT SHOULDER (2+ VIEWS), 01/24/2023 9:06 AM INDICATION: fell onto right side x 2 days ago. no prior injury/surg. TTP anterior lateral shoulder \ M25.511 Acute pain of right shoulder COMPARISON: None. Procedure Note Judd Carmona MD - 01/24/2023 X-RAY RIGHT SHOULDER (2+ VIEWS), 01/24/2023 9:06 AM INDICATION: fell onto right side x 2 days ago. no prior injury/surg. TTPanterior lateral shoulder \ M25.511 Acute pain of right shoulder COMPARISON: None. CONCLUSION: 1. No acute fracture or malalignment. 2. Mild glenohumeral degenerative changes with small marginal spurringand mild additional degenerative subcortical stenosis and tiny spurring atthe greater tuberosity with underlying small subcortical cysts. 3. Mild acromioclavicular degenerative changes. Devorah Wiggins PA-C IMG DIAGNOSTIC I MAGING ORDERABLES * XR ELBOW RIGHT (LIMITED: AP,LAT) (01/24/2023 9:06 AM EST) Anatomical Region Laterality Modality Elbow, Arm, Forearm Computed Rad iography 01/24/2023 9:16 AM EST Impressions 01/24/2023 9:17 AM EST 1. ??No acute fracture or malalignment. 2. ??No elbow joint effusion. 3. ??Mild radiocapitellar and ulnar-trochlear elbow degenerative changes with multiple medial and lateral ventricle is bodies, and dominant 12 mm calcified loose body in the region of the medial joint recess. Narrative 01/24/2023 9:17 AM EST X-RAY RIGHT ELBOW (2 VIEWS), 01/24/2023 9:06 AM INDICATION: ??\ M25.521 Right elbow pain COMPARISON: None. Procedure Note Judd Carmona MD - 01/24/2023 X-RAY RIGHT ELBOW (2 VIEWS), 01/24/2023 9:06 AM INDICATION: \ M25.521 Right elbow pain COMPARISON: None. CONCLUSION: 1. No acute fracture or malalignment. 2. No elbow joint effusion. 3. Mild radiocapitellar and ulnar-trochlear elbow degenerative changeswith multiple medial and lateral ventricle is bodies, and dominant 12 mmcalcified loose body in the region of the medial joint recess. Devorah Wiggins PA-C IMG DIAGNOSTIC I MAGING ORDERABLES * XR KNEE LT 3 VIEWS Lateral, AP, [place]; Standing (01/24/2023 9:06 AM EST) Anatomical Region Laterality Modality Thigh, Knee, Leg Computed Radiog shirley 01/24/2023 9:16 AM EST Impressions 01/24/2023 9:16 AM EST 1. ??No acute fracture or malalignment. 2. ??Small knee joint effusion. 3. ??Mild left knee tricompartmental degenerative changes with mild medial joint space loss and subchondral sclerosis and tricompartmental spurring. 4. ??Small superior patellar pole enthesophyte. Narrative 01/24/2023 9:16 AM EST X-RAY LEFT KNEE (3 VIEWS), 01/24/2023 9:06 AM INDICATION: fell x2 days ago \ M25.561 Acute pain of both knees \ M25.562 Acute pain of both knees COMPARISON: None. Procedure Note Judd Carmona MD - 01/24/2023 X-RAY LEFT KNEE (3 VIEWS), 01/24/2023 9:06 AM INDICATION: fell x2 days ago \ M25.561 Acute pain of both knees \ M25.562Acute pain of both knees COMPARISON: None. CONCLUSION: 1. No acute fracture or malalignment. 2. Small knee joint effusion. 3. Mild left knee tricompartmental degenerative changes with mild medialjoint space loss and subchondral sclerosis and tricompartmentalspurring. 4. Small superior patellar pole enthesophyte. Devorah Wiggins PA-C IMG DIAGNOSTIC I MAGING ORDERABLES * XR KNEE RT 3 VIEWS AP, Lateral, [place]; Standing (01/24/2023 9:06 AM EST) Anatomical Region Laterality Modality Thigh, Knee, Leg Computed Radiog shirley 01/24/2023 9:15 AM EST Impressions 01/24/2023 9:15 AM EST 1. ??No acute fracture or malalignment. 2. ??Small right knee joint effusion. 3. ??Mild tricompartmental knee degenerative changes with mild medial tibiofemoral and lateral patellofemoral predominant joint space narrowing and tricompartmental small spurring. 4. ??Small superior patellar pole enthesophyte. 5. ??Prepatellar soft tissue edema. Narrative 01/24/2023 9:15 AM EST X-RAY RIGHT KNEE (3 VIEWS), 01/24/2023 9:06 AM INDICATION: fell x2 days ago \ M25.561 Acute pain of both knees \ M25.562 Acute pain of both knees COMPARISON: None. Procedure Note Judd Carmona MD - 01/24/2023 X-RAY RIGHT KNEE (3 VIEWS), 01/24/2023 9:06 AM INDICATION: fell x2 days ago \ M25.561 Acute pain of both knees \ M25.562Acute pain of both knees COMPARISON: None. CONCLUSION: 1. No acute fracture or malalignment. 2. Small right knee joint effusion. 3. Mild tricompartmental knee degenerative changes with mild medialtibiofemoral and lateral patellofemoral predominant joint space narrowingand tricompartmental small spurring. 4. Small superior patellar pole enthesophyte. 5. Prepatellar soft tissue edema. Devorah Wiggins PA-C IMG DIAGNOSTIC I MAGING ORDERABLES * COVID-19 and Influenza A/B PCR (12/09/2022 8:44 AM EDT) SARS-COV-2 Negative Negative 12/09/2022 3:08 PM EDT [facility] Influenza A Negative Negative 12/09/2022 3:08 PM EDT [facility] Influenza B Negative Negative 12/09/2022 3:08 PM EDT [facility] COVID-19 FLUAB COMMENT Results are for use in the simultaneous rapid in vitro detection and differentiation of SARS-CoV-2, influenza A virus, and influenza B virus nucleic acids by PCR in clinical specimens. Positive results are indicative of active infection but do not rule out bacterial infection or co-infection with other pathogens not detected by the test. Clinical correlation with patient history and other diagnostic information is necessary to determine patient infection status. The agent detected may not be the definite cause of disease. Negative results do not preclude SARS-CoV-2, influenza A, and/or influenza B infection and should not be used as the sole basis for diagnosis, treatment or other patient management decisions. Negative results must be combined with clinical observations, patient history, and/or epidemiological information. Test performed by [facility] qualified personnel using the Erick gisell?? SARS-CoV-2 & Influenza A/B Nucleic acid test on the SAYDA instrument. This test is only for use under the Food and Drug Administration's Emergency Use Authorization (EUA). 12/09/2022 3:08 PM EDT [facility] Nasopharyngeal Swab (Nasal) 12/09/2022 8:44 AM EDT 12/09/2022 2:33 PM EDT Vanesa Kasandraramila Doan ACID TANK LINER BODY FLUIDS AND STO OLS (NON-MICRO) ORDERABLES Performing Organization Address City/[facility]/ZIP Co de Phone Number [facility] CLIA# [id number] [place] [address] * POCT COVID BD (12/09/2022 8:38 AM EDT) Only the most recent of2 resultswithin the time period is included. COVID Antigen, POC Negative Negative [facility] COVID ANTIGEN COMMENT, POC For Negative results, send a sample swab using viral transport media to [facility] for COVID PCR testing - [id number] (Covid Only). [facility] COVID Antigen Internal QC, POC Internal QC - Passed Internal QC - Passed [facility] COVID KIT EXP DATE, POC 06/14/23 [facility] 01 [facility] COVID KIT LOT NUM, POC [id number] [facility] 01 [facility] 12/09/2022 8:38 AM EDT Vanesa TRANP POINT OF CARE TEST ORDERABLES [facility] CLIA# [id number] [address] [place] [address] [place] [address] * POCT Rapid Strep A (12/09/2022 8:24 AM EDT) Only the most recent of4 resultswithin the time period is included. Rapid Strep A Screen Negative Reference Range: Negative [facility] 01 [facility] QC VERIFIED AND ACCEPTABLE Yes [facility] 01 [facility] LOT NUMBER [id number] [facility] 01 [facility] Exp. Date 04/27/2024 [facility] 01 [facility] Throat 12/09/2022 8:24 AM EDT Vanesa Doan ACID TANK LINER POINT OF CARE TEST ORDERABLES Performing Organization Address [facility] Co de Phone Number [id number] CLIA# [id number] [address] [place] [address] * POCT INFLUENZA A/B (12/09/2022 8:23 AM EDT) Only the most recent of2 resultswithin the time period is included. Rapid Influenza A Ag Negative Reference Range: Negative [facility] 01 [facility] Rapid Influenza B Ag Negative Reference Range: Negative PCRO5 01 [facility] QC VERIFIED AND ACCEPTABLE Yes PCRO5 01 [facility] LOT NUMBER [id number] PCRO5 01 [facility] Exp. Date 02/28/2024 [facility] 01 [facility] Nasal Swab 12/09/2022 8:23 AM EDT Vanesa Doan ACID TANK LINER POINT OF CARE TEST ORDERABLES Performing Organization Address City/[facility] Co de Phone Number PCR[facility] 01 [facility] CLIA# [id number] [address] [place] [address] [place] [address] * CT CHEST WO CONTRAST (11/10/2022 3:53 PM EDT) Anatomical Region Laterality Modality Chest Computed Tomogra phy 11/12/2022 11:2 6 AM EDT Narrative 11/12/2022 11:33 AM EDT CLINICAL DATA: ??Lung nodule. EXAM: CT CHEST WITHOUT CONTRAST TECHNIQUE: Multidetector CT imaging of the chest was performed following the standard protocol without IV contrast. RADIATION DOSE REDUCTION: This exam was performed according to the departmental dose-optimization program which includes automated exposure control, adjustment of the mA and/or kV according to patient size and/or use of iterative reconstruction technique. COMPARISON: ??07/27/2022, PET 06/29/2022. FINDINGS: Cardiovascular: Atherosclerotic calcification of the aorta and aortic valve. Heart is at the upper limits of normal in size. No pericardial effusion. Mediastinum/Nodes: Right thyroidectomy. Thoracic inlet and mediastinal lymph nodes are not enlarged by CT size criteria. Hilar regions are difficult to definitively evaluate without IV contrast. Similar left axillary adenopathy, 1.2 cm (2). Right axillary lymph nodes are not enlarged by CT size criteria. Esophagus is grossly unremarkable. Lungs/Pleura: Spiculated area of nodular consolidation in the lateral segment right middle lobe measures 0.9 x 1.7 cm (), unchanged from 07/27/2022 and hypometabolic on 06/29/2022. There is retraction of the adjacent major fissure. Scattered bibasilar scarring. No pleural fluid. Airway is unremarkable. Upper Abdomen: Liver appears slightly decreased in attenuation diffusely with peripheral sparing. Visualized portions of the liver, adrenal glands, left kidney, spleen, pancreas, stomach and bowel are grossly unremarkable. Gastrohepatic ligament lymph nodes are not enlarged by CT size criteria. Musculoskeletal: Degenerative changes in the spine. Pectus deformity. No worrisome lytic or sclerotic lesions. IMPRESSION: 1. Spiculated right middle lobe nodule, stable in size from 07/27/2022 and hypometabolic on 06/29/2022. Indolent adenocarcinoma remains a diagnostic consideration. Additional follow-up CT chest without contrast in 3-6 months is recommended. 2. Similar left axillary adenopathy, not shown to be hypermetabolic on 06/29/2022. Recommend continued attention on follow-up. 3. Liver appears slightly steatotic. 4. ??Aortic atherosclerosis (WFV25-D01.0). Electronically Signed ??By: Luna ??Nusrat Foss ??On: 11/12/2022 11:33 Procedure Note Luna Silverio MD - 11/12/2022 CLINICAL DATA: Lung nodule. EXAM: CT CHEST WITHOUT CONTRAST TECHNIQUE: Multidetector CT imaging of the chest was performed following the standard protocol without IV contrast. RADIATION DOSE REDUCTION: This exam was performed according to the departmental dose-optimization program which includes automated exposure control, adjustment of the mA and/or kV according to patient size and/or use of iterative reconstruction technique. COMPARISON: 07/27/2022, PET 06/29/2022. FINDINGS: Cardiovascular: Atherosclerotic calcification of the aorta and aortic valve. Heart is at the upper limits of normal in size. No pericardial effusion. Mediastinum/Nodes: Right thyroidectomy. Thoracic inlet and mediastinal lymph nodes are not enlarged by CT size criteria. Hilar regions are difficult to definitively evaluate without IV contrast. Similar left axillary adenopathy, 1.2 cm (2/17). Right axillary lymph nodes are not enlarged by CT size criteria. Esophagus is grossly unremarkable. Lungs/Pleura: Spiculated area of nodular consolidation in the lateral segment right middle lobe measures 0.9 x 1.7 cm (3/77), unchanged from 07/27/2022 and hypometabolic on 06/29/2022. There is retraction of the adjacent major fissure. Scattered bibasilar scarring. No pleural fluid. Airway is unremarkable. Upper Abdomen: Liver appears slightly decreased in attenuation diffusely with peripheral sparing. Visualized portions of the liver, adrenal glands, left kidney, spleen, pancreas, stomach and bowel are grossly unremarkable. Gastrohepatic ligament lymph nodes are not enlarged by CT size criteria. Musculoskeletal: Degenerative changes in the spine. Pectus deformity. No worrisome lytic or sclerotic lesions. IMPRESSION: 1. Spiculated right middle lobe nodule, stable in size from 07/27/2022 and hypometabolic on 06/29/2022. Indolent adenocarcinoma remains a diagnostic consideration. Additional follow-up CT chest without contrast in 3-6 months is recommended. 2. Similar left axillary adenopathy, not shown to be hypermetabolic on 06/29/2022. Recommend continued attention on follow-up. 3. Liver appears slightly steatotic. 4. Aortic atherosclerosis (BTB18-U92.0). Electronically Signed By: Luna Silverio M.D. On: 11/12/2022 11:33 Alejandrina A Gershner DO IMG CT ORDERABLE S * XR SHOULDER LT 2 OR MORE VIEWS [place], Axillary, Scapula Y, AP (10/29/2022 8:19 AM EDT) Anatomical Region Laterality Modality Computed Radiogr aphy 10/29/2022 8:36 AM EDT Impressions 10/29/2022 8:37 AM EDT 1. ??No acute fracture or malalignment. 2. 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 Small calcific densities along the superolateral margin of the humeral head may reflect a very mild or early element of calcific tendinopathy involving the rotator cuff insertion. Narrative 10/29/2022 8:37 AM EDT X-RAY LEFT SHOULDER (2+ VIEWS), 10/29/2022 8:19 AM INDICATION: shoulder pain \ M25.512 Acute pain of left shoulder COMPARISON: None. Procedure Note Liu Sauceda MD - 10/29/2022 X-RAY LEFT SHOULDER (2+ VIEWS), 10/29/2022 8:19 AM INDICATION: shoulder pain \ M25.512 Acute pain of left shoulder COMPARISON: None. CONCLUSION: 1. No acute fracture or malalignment. 2. 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 Floridalma Zuniga PA-C IMG DIAGNOSTIC IMAGI NG ORDERABLES * XR CHEST PA AND LATERAL (09/30/2022 10:43 AM EDT) Anatomical Region Laterality Modality Chest Computed Radiogr aphy 09/30/2022 10:5 5 AM EDT Impressions 09/30/2022 10:57 AM EDT 1. Thin curvilinear scarring and/or partial atelectasis within the right middle lobe in the region of previous right lung pneumonia. No pulmonary consolidation or acute cardiopulmonary disease. Narrative 09/30/2022 10:57 AM EDT XR CHEST PA AND LATERAL, 09/30/2022 10:43 AM INDICATION: cough. recent pneumonia. \ J02.9 Sore throat COMPARISON: 08/26/2022 FINDINGS: Cardiovascular: Cardiac silhouette and pulmonary vasculature are within normal limits. Mediastinum: Within normal limits. Lungs/pleura: Overlying safety pin visualized on the initial frontal projection was remote for the repeat PA projection. Subtle thin curvilinear scarring and/or atelectasis within the right middle lobe in the region of the previous pneumonia. No new pulmonary consolidation or edema. No pleural effusion or pneumothorax. Upper abdomen: Visualized portions are unremarkable. Chest wall/osseous structures: No acute fracture. Mild multilevel thoracic spondylosis. Procedure Note Judd Carmona MD - 09/30/2022 XR CHEST PA AND LATERAL, 09/30/2022 10:43 AM INDICATION: cough. recent pneumonia. \ J02.9 Sore throat COMPARISON: 08/26/2022 FINDINGS: Cardiovascular: Cardiac silhouette and pulmonary vasculature are withinnormal limits. Mediastinum: Within normal limits. Lungs/pleura: Overlying safety pin visualized on the initial frontalprojection was remote for the repeat PA projection. Subtle thincurvilinear scarring and/or atelectasis within the right middle lobe inthe region of the previous pneumonia. No new pulmonary consolidation oredema. No pleural effusion or pneumothorax. Upper abdomen: Visualized portions are unremarkable. Chest wall/osseous structures: No acute fracture. Mild multilevel thoracicspondylosis. CONCLUSION: 1. Thin curvilinear scarring and/or partial atelectasis within the rightmiddle lobe in the region of previous right lung pneumonia. No pulmonaryconsolidation or acute cardiopulmonary disease. Floridalma Zuniga PA-C IMG DIAGNOSTIC IMAGI NG ORDERABLES * XR CHEST PA AND LATERAL (08/26/2022 5:45 PM EDT) Anatomical Region Laterality Modality Chest Computed Radiogr aphy 08/26/2022 5:56 PM EDT Impressions 08/26/2022 5:58 PM EDT RIGHT basilar hazy attenuation suggests acute infiltration, consistent with pneumonia. . . Narrative 08/26/2022 5:58 PM EDT XR CHEST PA AND LATERAL, 08/26/2022 5:45 PM INDICATION: cough \ R05.9 Cough, unspecified type COMPARISON: Chest CT 07/27/2022 FINDINGS: Cardiovascular: Chronic cardiomegaly. Lungs/pleura: Hazy right basilar attenuation. No pleural effusion. Upper abdomen: No acute abnormality. Osseous structures: No acute abnormality. Procedure Note Kash Cota MD - 08/26/2022 XR CHEST PA AND LATERAL, 08/26/2022 5:45 PM INDICATION: cough \ R05.9 Cough, unspecified type COMPARISON: Chest CT 07/27/2022 FINDINGS: Cardiovascular: Chronic cardiomegaly. Lungs/pleura: Hazy right basilar attenuation. No pleural effusion. Upper abdomen: No acute abnormality. Osseous structures: No acute abnormality. CONCLUSION: RIGHT basilar hazy attenuation suggests acute infiltration, consistentwith pneumonia. . . Bria Tam PA-Panda IMG DIAG NOSTIC IMAGING ORDERABLES * Bronchoscopy w Biopsy, w EBUS - Multi Station, w Radial Probe; w Robotic Bronchoscopy (08/11/2022 10:06 AM EDT) Anatomical Region Laterality Modality Endoscopy Narrative 08/11/2022 2:20 PM EDT Table formatting from the original result was not included. Indication Pulmonary parenchymal mass Referring Provider Darwin Hatfield MD Staff Staff Role Lolita Hamm DO Fellow Dhiraj Perez MD Anesthesiologist Alejandrina Kathleen DO Proceduralist Bubba Singer CRNA SERVICE C[facility] MANAGER Elke Singleton, network director Nurse Medications See Anesthesia Record. Preprocedure After the risks, benefits, and alternatives of the procedure were thoroughly explained, informed consent was obtained. A history and physical has been performed, and patient medication allergies have been reviewed. The patient's tolerance of previous anesthesia has been reviewed. The risks and benefits of the procedure and the sedation options and risks were discussed with the patient. All questions were answered and informed consent obtained. Details of the Procedure The patient underwent general anesthesia, which was administered by an anesthesia professional. The patient's blood pressure, heart rate, level of consciousness, oxygen, respirations and ETCO2 were monitored throughout the procedure. The patient experienced no blood loss. The scope was introduced through the endotracheal tube. The procedure was not difficult. The patient tolerated the procedure well. There were no apparent adverse events. Events Procedure Events Event Event Time ENDO SCOPE IN TIME 08/11/2022 ??8:44 AM UPPER ENDOSCOPY TIME OUT 08/11/2022 ??9:57 AM Findings All observed locations appeared normal, including the middle trachea, lower trachea, main rossi, left main stem, YOANA, lingula, LLL, right main stem, RUL, bronchus intermedius, RML and RLL. Transbronchial needle aspirations performed in the RML under fluoroscopic guidance, using radial EBUS and Robotic guidance. RML nodule: Slides 1-8, 5 rinses Performed transbronchial biopsies using robotic, radial probe in the RML. RML nodule: Slides 9 and 10 (sent for touchprep) Nodes observed under convex ultrasound guidance. All accessible stations viewed, with no lymph nodes amendable to biopsy. Impression Airway inspection unremarkable. RML nodule was biopsied under robotic guidance. EBUS performed with all accessible stations viewed and no lymph nodes amendable to biopsy. ?? Recommendation There is no recommended follow-up for this procedure. Specimens ID Type Source Tests Collected by Time 1 : RML Nodule: slides 1, 2, 3, 4, 5, 6, 7, 8 ??/ ??slides 9 , 10 touch prep / with 5 rinses / Jar 1 TBBX Fine Needle Asp Lung, Right Middle Lobe CYTOLOGY, FINE NEEDLE ASPIRATION (FNA) Alejandrina Kathleen, DO 08/11/2022 0913 A : RML nodule Fine Needle Asp Lung, Right Middle Lobe TISSUE CULTURE Alejandrina Kathleen, DO 08/11/2022 0945 Attending Attestation I was present for and supervised the entire procedure. Darwin Hatfield MD GI PROCEDURE KAYLA MOSES * (ABNORMAL) Tissue Culture (08/11/2022 9:45 AM EDT) Tissue culture ID Unable to quantitate Staphylococcus hominis (CoNS)(A) MICRO GLADYS SUSCEPTIBILITY 08/16/2022 4:52 PM EDT [facility] Comment: Growth in liquid media only Tissue culture ID Unable to quantitate Actinomyces(A) MICRO GLADYS SUSCEPTIBILITY 08/16/2022 4:52 PM EDT [facility] Comment: Actinomyces species Growth in liquid media only Gram Stain Rare White Blood Cells 08/16/2022 4:52 PM EDT [facility] Gram Stain No organisms seen 08/16/2022 4:52 PM EDT [facility] Fine Needle Asp (Lung, Right Middle Lobe) 08/11/2022 9:45 AM EDT 08/11/2022 11:42 AM EDT Comment:Abnormal imaging Narrative Organism Antibiotic Method Susceptibility Staphylococcus hominis (CoNS) Cefazolin MICRO GLADYS SUSCEPTIBILITY <=4: Susceptible Staphylococcus hominis (CoNS) Clindamycin MICRO GLADYS SUSCEPTIBILITY <=0.25: Susceptible Staphylococcus hominis (CoNS) Erythromycin MICRO GLADYS SUSCEPTIBILITY <=0.25: Susceptible Staphylococcus hominis (CoNS) Gentamicin MICRO GLADYS SUSCEPTIBILITY <=1: Susceptible Staphylococcus hominis (CoNS) Oxacillin MICRO GLADYS SUSCEPTIBILITY <=0.25: Susceptible Staphylococcus hominis (CoNS) Penicillin G MICRO GLADYS SUSCEPTIBILITY <=0.03: Resistant Staphylococcus hominis (CoNS) Vancomycin MICRO GLADYS SUSCEPTIBILITY 0.5: Susceptible Staphylococcus hominis (CoNS) Organism ID MICRO GLADYS SUSCEPTIBILITY Comment: Antimicrobial susceptibility testing performed by [employer] Micro[employer] [place] Plus Identification testing performed by [employer] matrix-assisted laser desorption/ionization time of flight(MALDI-TOF)mass spectrometry. Actinomyces Organism ID MICRO GLADYS SUSCEPTIBILITY Comment:Identification testi ng performed by [employer] matrix-assisted laser desorption/ionization time of flight(MALDI-TOF)mass spectrometry. Alejandrina Kathleen DO MICROBIOLOGY - G ENERAL ORDERABLES [facility] CLIA# [id number] [place] [address] * Cytology, Fine Needle Aspiration (FNA) (08/11/2022 9:13 AM EDT) Case Report WF Cytopathology Report ? Case: [id number] ? Authorizing Provider: ??Alejandrina Kathleen DO ?? Collected: ? 08/11/2022 09:13 AM ? Ordering Location: ? [facility] Received: ?08/11/2022 10:12 AM ? - Jeramie Villalta ? Pathologist: ? Carol Ann Arnold MD ? Specimens: ?? A) - Lung, Right Middle Lobe, RML Nodule: slides 1, 2, 3, 4, 5, 6, 7, 8 ??/ ??slides 9 ? , 10 touch prep ??/ with 5 rinses / Jar 1 TBBX ? B) - Lung, Right Middle Lobe ? 08/12/2022 1:56 PM EDT [facility] Specimen A. Final Interpretation LUNG, RML, FINE NEEDLE ASPIRATION, CYTOLOGY (SMEARS AND CELL BLOCK): Rare ciliated bronchial epithelial cells 08/12/2022 1:56 PM EDT [facility] Specimen A. Adequacy Unsatisfactory for evaluation (reason specified below). 08/12/2022 1:56 PM EDT [facility] Comment:Insufficient cellula rity. Specimen B. Final Interpretation LUNG, RML, CORE BIOPSY WITH TOUCH PREP: Blood clot. No pulmonary tissue present. 08/12/2022 1:56 PM EDT [facility] I verify that I have personally reviewed all relevant slides/materials for this case and rendered or confirmed the diagnosis. 08/12/2022 1:56 PM EDT [facility] Clinical Information Abnormal imaging 08/12/2022 1:56 PM EDT [facility] On Site Evaluation A. Inadequate. Immediate cytologic assessment performed by: Pedrito Pruitt CT(ASCP) 08/11/2022 10:05 B. Inadequate. Immediate cytologic assessment performed by: Pedrito Pruitt CT(ASCP) 08/11/2022 10:05 08/12/2022 1:56 PM EDT [facility] Gross Description A. Received 20 cc (including saline) red fluid. Red sediment. Slide Count: 16 smears, 1 cell block B. Received core biopsies obtained in formalin. Slide Count: 4 touch preps 08/12/2022 1:56 PM EDT [facility] Fine Needle Asp (Lung, Right Middle Lobe) 08/11/2022 9:13 AM EDT 08/11/2022 10:12 AM EDT Comment:Abnormal imaging Fine Needle Asp (Lung, Right Middle Lobe) 08/11/2022 9:13 AM EDT 08/11/2022 10:12 AM EDT Alejandrina Kathleen DO LAB CYTOLOGY ORD ERABLES [facility] CLIA# [id number] [place] [address] * ANESTHESIA ETT (08/11/2022 8:38 AM EDT) Bubba Jaimes, JHONATHAN - 08/11/2022 8:38 AM EDT Bubba Singer CRNA ? 08/11/2022 ??8:46 AM Anesthesia Airway Date/Time: 08/11/2022 8:38 AM Urgency: elective General Information and Staff Patient location during procedure: [place] Anesthesiologist: Dhiraj Perez [facility] [place] Bubba Singer CRNA Performed by: JHONATHAN Indications and Patient Condition Indication for airway management: anesthesia Preoxygenated: yes Patient position: sniffingMask difficulty assessment: 1 - easy ventilation by mask Final Airway Details Final airway type: endotracheal airway Endotracheal tube type: ETT Successful intubation technique: fiberoptic Fiberoptic indication: Elective Facilitating devices/methods: none Endotracheal tube insertion site: oral Blade: Naila Blade size: #3 ETT size: 8.5 mm View (Cormack Lehane grade): grade I - visualization of entire laryngeal aperture Placement verified by: chest auscultation/breath sounds equal bilaterally, bronchoscopy and capnometry/+EtCO2 Measured from: lips ETT to lips (cm): 21 Number of attempts at approach: 1 Airway placement trauma: none Dhiraj Perez MD [place] ANESTHESIA * [place] FLUOROSCOPY NON RAD < 1HR ENDOSCOPY ORDER (08/11/2022 7:49 AM EDT) Narrative [facility] - 08/11/2022 7:49 AM EDT This exam was automatically finalized and will not be resulted. Alejandrina Kathleen DO IMG DIAGNOSTIC I MAGING ORDERABLES [facility] * CT CHEST WO CONTRAST (07/27/2022 8:57 AM EDT) Anatomical Region Laterality Modality Chest Computed Tomogra phy 07/27/2022 10:0 0 AM EDT Narrative 07/27/2022 10:11 AM EDT CLINICAL DATA: ??Right middle lobe lung nodule. * Tracking Code: LIBBY . EXAM: CT CHEST WITHOUT CONTRAST TECHNIQUE: Multidetector CT imaging of the chest was performed following the standard protocol without IV contrast. RADIATION DOSE REDUCTION: This exam was performed according to the departmental dose-optimization program which includes automated exposure control, adjustment of the mA and/or kV according to patient size and/or use of iterative reconstruction technique. COMPARISON: ??PET-CT June 29, 2022 FINDINGS: Cardiovascular: Aortic and branch vessel atherosclerosis without abdominal aortic aneurysm. Mild cardiac enlargement. Calcifications of the mitral annulus. No significant pericardial effusion/thickening. Mediastinum/Nodes: Stable mild left axillary and subpectoral adenopathy, which were FDG avid on PET-CT June 29, 2022 and measure up to 14 mm in short axis on image 50/2, unchanged. No right axillary adenopathy. No pathologically enlarged mediastinal or hilar lymph nodes, noting limited sensitivity for the detection of hilar adenopathy on this noncontrast study. Lungs/Pleura: Unchanged size of the right middle lobe pulmonary nodule which measures 2.2 x 1.4 cm and demonstrated mild FDG uptake on recent PET-CT. No new suspicious pulmonary nodules or masses. No pleural effusion. No pneumothorax. Scarring in the paramedian right lower lobe adjacent to vertebral body osteophytes. Upper Abdomen: No acute abnormality. Musculoskeletal: No aggressive lytic or blastic lesion of bone. IMPRESSION: 1. Unchanged size of the 2.2 cm right middle lobe pulmonary nodule, again concerning for primary bronchogenic neoplasm. 2. Stable mild left axillary and subpectoral adenopathy, nonspecific but given location and laterality in relationship to the primary pulmonary lesion are favored reactive/inflammatory, continued attention on follow-up imaging suggested.. 3. ??Aortic Atherosclerosis (GGD33-I89.0). Electronically Signed ??By: Sadi ??Kavon Foss ??On: 07/27/2022 10:11 Procedure Note Sadi Jacobson MD - 07/27/2022 CLINICAL DATA: Right middle lobe lung nodule. * Tracking Code: LIBBY . EXAM: CT CHEST WITHOUT CONTRAST TECHNIQUE: Multidetector CT imaging of the chest was performed following the standard protocol without IV contrast. RADIATION DOSE REDUCTION: This exam was performed according to the departmental dose-optimization program which includes automated exposure control, adjustment of the mA and/or kV according to patient size and/or use of iterative reconstruction technique. COMPARISON: PET-CT June 29, 2022 FINDINGS: Cardiovascular: Aortic and branch vessel atherosclerosis without abdominal aortic aneurysm. Mild cardiac enlargement. Calcifications of the mitral annulus. No significant pericardial effusion/thickening. Mediastinum/Nodes: Stable mild left axillary and subpectoral adenopathy, which were FDG avid on PET-CT June 29, 2022 and measure up to 14 mm in short axis on image 50/2, unchanged. No right axillary adenopathy. No pathologically enlarged mediastinal or hilar lymph nodes, noting limited sensitivity for the detection of hilar adenopathy on this noncontrast study. Lungs/Pleura: Unchanged size of the right middle lobe pulmonary nodule which measures 2.2 x 1.4 cm and demonstrated mild FDG uptake on recent PET-CT. No new suspicious pulmonary nodules or masses. No pleural effusion. No pneumothorax. Scarring in the paramedian right lower lobe adjacent to vertebral body osteophytes. Upper Abdomen: No acute abnormality. Musculoskeletal: No aggressive lytic or blastic lesion of bone. IMPRESSION: 1. Unchanged size of the 2.2 cm right middle lobe pulmonary nodule, again concerning for primary bronchogenic neoplasm. 2. Stable mild left axillary and subpectoral adenopathy, nonspecific but given location and laterality in relationship to the primary pulmonary lesion are favored reactive/inflammatory, continued attention on follow-up imaging suggested.. 3. Aortic Atherosclerosis (WUK16-E32.0). Electronically Signed By: Sadi Jacobson M.D. On: 07/27/2022 10:11 Darwin Hatfield MD [facility] CT ORDERABLES * Antinuclear Antibodies, HEp-2 Substrate, IgG, Serum (Sutter-Sendout) (07/15/2022 8:36 AM EDT) Antinuclear Ab, HEp-2, Substrate, S <1:80 (Negative ) <1:80 (Negativ e) 07/16/2022 8:57 PM EDT [facility] Comment: ADDITIONAL INFORMATION Method: Immunofluorescence using HEp-2 cellular substrate. Test Performed by: [place] [address] Barrel Raiser: Quinn Rivera M.D. Ph.D.; CLIA# [id number] Blood Venipuncture / Unknown 07/15/2022 8:36 AM EDT 07/15/2022 8:36 AM EDT Gerda Mancia PA-C LAB BLOOD ORDERA BLES Performing Organization Address [facility] de Phone Number [facility] * CRP, Non-Cardiac (07/15/2022 8:36 AM EDT) CRP, NON-CARDIAC <5.0 <5.0 MG/L 07/15/2022 10:11 AM EDT [facility] Blood Venipuncture / Unknown 07/15/2022 8:36 AM EDT 07/15/2022 8:36 AM EDT Gerda Mancia PA-C LAB BLOOD ORDERA BLES Performing Organization Address [facility] Co de Phone Number [facility] CLIA# [id number] [address] [place] [address] * 25(OH) Vitamin D Total (07/15/2022 8:36 AM EDT) Only the most recent of3 resultswithin the time period is included. Total Vitamin D 25-Hydroxy 32 30 - 100 ng/mL 07/15/2022 2:38 PM EDT [facility] Comment: Deficient: <20 ng/mL Insufficient: 20-30 ng/mL Sufficient: 30-100 ng/mL Upper Safety Limit/Toxicity: >100 ng/mL Total Vitamin D includes D2 and D3. ??D3 can originate from both endogenous and supplemental sources, whereas D2 is not endogenously produced. Therapy is based on Total 25(OH) Vitamin D with concentrations <20 ng/mL being indicative of Vitamin D deficiency. ??Optimal concentrations should be >30 ng/mL. Blood Venipuncture / Unknown 07/15/2022 8:36 AM EDT 07/15/2022 8:36 AM EDT Gerda Mancia PA-C LAB BLOOD ORDERA BLES Performing Organization Address [facility] Co de Phone Number [facility] CLIA# [id number] [place] [address] * Sedimentation Rate (ESR) (07/15/2022 8:36 AM EDT) Sed Rate 9 0 - 30 MM/HR 07/15/2022 10:09 AM EDT [facility] Blood Venipuncture / Unknown 07/15/2022 8:36 AM EDT 07/15/2022 8:36 AM EDT Gerda SULLIVAN-Panda LAB BLOOD ORDERA BLES Performing Organization Address City/[facility]/ZIP Co de Phone Number [facility] CLIA# [id number] [address] [place] [address] * RA FACTOR SCREEN (07/15/2022 8:36 AM EDT) Pathologist [facility] RA SCREEN Negative Negative 07/16/2022 9:59 AM EDT [facility] Blood Venipuncture / Unknown 07/15/2022 8:36 AM EDT 07/15/2022 8:36 AM EDT Gerda Mancia PA-C LAB BLOOD ORDERA BLES [facility] CLIA# [id number] [place] [address] * CBC (07/15/2022 8:36 AM EDT) Pathologist [facility] WBC 7.3 4.4 - 11.0 x 10*3/uL 07/15/2022 10:00 AM [facility] RBC 4.54 4.10 - 5.10 x 10*6/uL 07/15/2022 10:00 AM [facility] Hemoglobin 13.7 12.3 - 15.3 G/DL 07/15/2022 10:00 AM [facility] Hematocrit 40.7 35.9 - 44.6 % 07/15/2022 10:00 AM [facility] MCV 89.7 80.0 - 96.0 FL 07/15/2022 10:00 AM [facility] MCH 30.1 27.5 - 33.2 PG 07/15/2022 10:00 AM [facility] MCHC 33.6 33.0 - 37.0 G/DL 07/15/2022 10:00 AM [facility] RDW 13.6 12.3 - 17.0 % 07/15/2022 10:00 AM [facility] Platelets 286 150 - 450 X 10*3/uL 07/15/2022 10:00 AM [facility] MPV 7.5 6.8 - 10.2 FL 07/15/2022 10:00 AM [facility] Blood Venipuncture / Unknown 07/15/2022 8:36 AM EDT 07/15/2022 8:36 AM EDT Gerda Loerayoly Mancia PA-C LAB BLOOD ORDERA BLES Performing Organization Address [facility] de Phone Number [facility] CLIA# [id number] [address] [place] [address] * (ABNORMAL) Hemoglobin A1C (07/15/2022 8:36 AM EDT) Only the most recent of3 resultswithin the time period is included. HEMOGLOBIN A1C 6.0(H) <5.7 % 07/15/2022 10:15 AM T [facility] Comment: Normal: ? Less than 5.7% Prediabetes: ??5.7% to 6.4% Diabetes: ? Greater than 6.4% eAG 126 MG/DL 07/15/2022 10:15 AM EDT [facility] eAG Comment 07/15/2022 10:15 AM T [facility] Comment:The ADA has supporte d the calculation of Average Glucose (eAG) based on HbA1c measurements. However, the eAG reflects the average glycemic level over 2-3 months and it would not necessarily match single glucose laboratory measurements, nor reflect changes in the daily glucose concentration. Blood Venipuncture / Unknown 07/15/2022 8:36 AM EDT 07/15/2022 8:36 AM EDT Gerda Melina Mancia PA-C LAB BLOOD ORDERA BLES Performing Organization Address [facility] de Phone Number [facility] CLIA# [id number] [address] [place] [address] * (ABNORMAL) Basic Metabolic Panel (07/15/2022 8:36 AM EDT) Sodium 140 135 - 146 MMOL/L 07/15/2022 10:11 AM EDT [facility] Potassium 4.5 3.5 - 5.3 MMOL/L 07/15/2022 10:11 AM EDT [facility] Chloride 104 98 - 110 MMOL/L 07/15/2022 10:11 AM [facility] CO2 31(H) 23 - 30 MMOL/L 07/15/2022 10:11 AM [facility] BUN 11 8 - 24 MG/DL 07/15/2022 10:11 AM [facility] Glucose 108(H) 70 - 99 MG/DL 07/15/2022 10:11 AM [facility] Comment:Patients taking eltr ombopag at doses >/= 100 mg daily may show falsely elevated values of 10% or greater. Creatinine 0.66 0.50 - 1.50 MG/DL 07/15/2022 10:11 AM [facility] Calcium 9.1 8.5 - 10.5 MG/DL 07/15/2022 10:11 AM [facility] Anion Gap 5 4 - 14 MMOL/L 07/15/2022 10:11 AM [facility] Est. GFR >90 >=60 ML/MIN/1.7 3 M*2 07/15/2022 10:11 AM [facility] Comment: GFR estimated by CKD-EPI equations(NKF 2020). Recommend confirmation of Cr-based eGFR by using Cys-based eGFR and other filtration markers (if applicable) in complex cases and clinical decision-making, as needed. Blood Venipuncture / Unknown 07/15/2022 8:36 AM EDT 07/15/2022 8:36 AM EDT Gerda Mancia PA-C LAB BLOOD ORDERA BLES [facility] CLIA# [id number] [address] [place] [address] * PET LUNG CANCER OR PULMONARY NODULE (W/LOW DOSE CT) (06/29/2022 1:00 PM EDT) Anatomical Region Laterality Modality Positron Emissio n Tomography (PET) 06/30/2022 8:28 AM EDT Narrative 06/30/2022 8:47 AM EDT CLINICAL DATA: ??Initial treatment strategy for right lung nodule. EXAM: NUCLEAR MEDICINE PET SKULL BASE TO THIGH TECHNIQUE: 13.0 mCi F-18 FDG was injected intravenously. Full-ring PET imaging was performed from the skull base to thigh after the radiotracer. CT data was obtained and used for attenuation correction and anatomic localization. Fasting blood glucose: 107 mg/dl COMPARISON: ??Cardiac CT on 07/01/2022 FINDINGS: Mediastinal blood-pool activity (background): SUV max = 2.1 Liver activity (reference): SUV max = N/A NECK: ??No hypermetabolic lymph nodes or masses. Incidental CT findings: ??None. CHEST: Lobulated pulmonary nodule in the posterior right middle lobe measures 2.2 x 1.4 cm on image 59/2. This shows mild FDG uptake, with SUV max of 1.5. No other suspicious pulmonary nodules are seen. No hypermetabolic hilar or mediastinal lymph nodes. Mild left axillary and subpectoral lymphadenopathy is seen, with largest axillary lymph node measuring 1.4 cm short axis with SUV max of 4.1. No hypermetabolic lesions seen within the left breast. Incidental CT findings: ??Aortic atherosclerotic calcification noted. ABDOMEN/PELVIS: No abnormal hypermetabolic activity within the liver, pancreas, adrenal glands, or spleen. No hypermetabolic lymph nodes in the abdomen or pelvis. Incidental CT findings: Sigmoid diverticulosis, without evidence of diverticulitis. Aortic atherosclerotic calcification noted. SKELETON: No focal hypermetabolic bone lesions to suggest skeletal metastasis. Incidental CT findings: ??None. IMPRESSION: 2.2 cm right middle lobe pulmonary nodule shows mild FDG uptake, but is not hypermetabolic. This raises suspicion for low-grade adenocarcinoma. No hypermetabolic hilar or mediastinal lymphadenopathy. Mild left axillary and subpectoral lymphadenopathy shows hypermetabolism, which is indeterminate. Differential diagnosis includes malignancy and inflammatory etiologies. No metastatic disease within the neck, abdomen, or pelvis. Aortic Atherosclerosis (MAJ47-G10.0). Electronically Signed ??By: Juan Carlos Mclaughlin M.D. ??On: 06/30/2022 08:47 Procedure Note Juan Carlos Mclaughlin MD - 06/30/2022 CLINICAL DATA: Initial treatment strategy for right lung nodule. EXAM: NUCLEAR MEDICINE PET SKULL BASE TO THIGH TECHNIQUE: 13.0 mCi F-18 FDG was injected intravenously. Full-ring PET imaging was performed from the skull base to thigh after the radiotracer. CT data was obtained and used for attenuation correction and anatomic localization. Fasting blood glucose: 107 mg/dl COMPARISON: Cardiac CT on 07/01/2022 FINDINGS: Mediastinal blood-pool activity (background): SUV max = 2.1 Liver activity (reference): SUV max = N/A NECK: No hypermetabolic lymph nodes or masses. Incidental CT findings: None. CHEST: Lobulated pulmonary nodule in the posterior right middle lobe measures 2.2 x 1.4 cm on image 59/2. This shows mild FDG uptake, with SUV max of 1.5. No other suspicious pulmonary nodules are seen. No hypermetabolic hilar or mediastinal lymph nodes. Mild left axillary and subpectoral lymphadenopathy is seen, with largest axillary lymph node measuring 1.4 cm short axis with SUV max of 4.1. No hypermetabolic lesions seen within the left breast. Incidental CT findings: Aortic atherosclerotic calcification noted. ABDOMEN/PELVIS: No abnormal hypermetabolic activity within the liver, pancreas, adrenal glands, or spleen. No hypermetabolic lymph nodes in the abdomen or pelvis. Incidental CT findings: Sigmoid diverticulosis, without evidence of diverticulitis. Aortic atherosclerotic calcification noted. SKELETON: No focal hypermetabolic bone lesions to suggest skeletal metastasis. Incidental CT findings: None. IMPRESSION: 2.2 cm right middle lobe pulmonary nodule shows mild FDG uptake, but is not hypermetabolic. This raises suspicion for low-grade adenocarcinoma. No hypermetabolic hilar or mediastinal lymphadenopathy. Mild left axillary and subpectoral lymphadenopathy shows hypermetabolism, which is indeterminate. Differential diagnosis includes malignancy and inflammatory etiologies. No metastatic disease within the neck, abdomen, or pelvis. Aortic Atherosclerosis (PMB35-D79.0). Electronically Signed By: Juan Carlos Mclaughlin M.D. On: 06/30/2022 08:47 Amilcar Adams MD IMG PET ORDERABLES * (ABNORMAL) POCT Glucose (06/29/2022 10:36 AM EDT) GLUCOSE, POC, NOVA 107(H) 70 - 99 mg/dL NOVA 06/29/2022 10:3 6 AM EDT 06/29/2022 11:05 AM EDT Amilcar Adams MD POCT ORDERABLES - DE VICE Performing Organization Address [facility] de Phone Number NOVA * ARCHIVE IMAGE ONLY (NO INTERPRETATION) (06/14/2022 7:50 AM EDT) Narrative - 06/14/2022 7:50 AM EDT This exam was automatically finalized and will not be resulted. Gayle Zimmer MD IMG DIAGNOSTIC IMAGI NG ORDERABLES Performing Organization Address [facility] de Phone Number [facility] * ARCHIVE IMAGE ONLY (NO INTERPRETATION) (06/14/2022 7:49 AM EDT) Narrative 06/14/2022 7:49 AM EDT This exam was automatically finalized and will not be resulted. Gayle Zimmer MD IMG DIAGNOSTIC IMAGI NG ORDERABLES Performing Organization Address [facility] Phone Number [facility] * PAP > 6 years old (05/29/2022 4:35 PM EDT) Hope Camilla Scales [facility] ORDERA BLES Performing Organization Address [facility] de Phone Number [facility] * Split Night (05/14/2022 2:09 PM EDT) Hope Camilla Scales [facility] ORDERA BLES Performing Organization Address [facility] de Phone Number [facility] * (ABNORMAL) Urine Microscopic Only (05/06/2022 8:16 PM EST) Urine WBC 6(H) 0 - 5 /HPF 05/06/2022 8:46 PM EST [facility] Urine RBC 15(H) 0 - 3 /HPF 05/06/2022 8:46 PM EST [facility] Urine Squamous Epithelial Cells Moderate(A ) Few /HPF 05/06/2022 8:46 PM EST [facility] Urine Bacteria Rare Rare /HPF 05/06/2022 8:46 PM EST [facility] Urine 05/06/2022 8:16 PM EST 05/06/2022 8:16 PM EST Alejandrina Baum MD URINE ORDERA BLES Performing Organization Address City/[facility] Co de Phone Number [facility] CLIA# [id number] [place] [address] * Urine Culture (05/06/2022 8:16 PM EST) Pathologist [facility] Urine culture ID < 10,000 col/ml No further workup 05/08/2022 9:49 AM EST [facility] Urine URETHRAL STRUCTURE / Unknown 05/06/2022 8:16 PM EST 05/06/2022 8:16 PM EST Alejandrina Baum MD MICROBIOLOGY - GENERAL ORDERABLES Performing Organization Address City/[facility]/ZIP Co de Phone Number [facility] CLIA# [id number] [place] [address] * (ABNORMAL) POCT Urine Dipstick Manual No Scope (05/06/2022 3:07 PM EST) POC Urine Color Yellow Yellow [facility] POC Urine Appearance Clear Clear [facility] POC Urine Glucose Negative Negative mg/dL [facility] Urine Bilirubin Negative Negative [facility] Urine Ketones Negative Negative mg/dL [facility] POC Urine Specific [place] 1.030(A) 1.005 - 1.025 [facility] POC Urine Blood Moderate(A) Negative [facility] POC Urine pH Dipstick 5.0 4.6 - 8.0 [facility] Urine Protein Trace(A) Negative mg/dL [facility] Urobilinogen 0.2 0.2 - 1 mg/dL [facility] Urine Nitrite Negative Negative [facility] [place] POC Urine Leukocytes Trace(A) Negative [facility] Strip Lot Number [id number] [facility] [place] Exp. Date 06/28/2023 [facility] [place] Urine 05/06/2022 3:07 PM EST Alejandrina Baum MD POINT OF CAR E TEST ORDERABLES Performing Organization Address [facility] Co de Phone Number [facility] [place] CLIA# [id number] [address] [place], [place] [address] * ARCHIVE IMAGE ONLY (NO INTERPRETATION) (04/15/2022 11:58 AM EST) Narrative TEP - 04/15/2022 11:58 AM EST This exam was automatically finalized and will not be resulted. Juancarlos Han MD [facility] DIAGNOSTIC I MAGING ORDERABLES Performing Organization Address [facility] de Phone Number [facility] * ARCHIVE IMAGE ONLY (NO INTERPRETATION) (04/15/2022 11:57 AM EST) Narrative - 04/15/2022 11:57 AM EST This exam was automatically finalized and will not be resulted. Juancarlos Han MD [facility] DIAGNOSTIC I MAGING ORDERABLES Performing Organization Address [facility] de Phone Number [facility] * ARCHIVE IMAGE ONLY (NO INTERPRETATION) (04/15/2022 11:57 AM EST) Narrative [facility] - 04/15/2022 11:57 AM EST This exam was automatically finalized and will not be resulted. Juancarols Han MD [facility] DIAGNOSTIC I MAGING ORDERABLES Performing Organization Address [facility] de Phone Number [facility] * ARCHIVE IMAGE ONLY (NO INTERPRETATION) (04/15/2022 11:57 AM EST) Narrative TEP - 04/15/2022 11:57 AM EST This exam was automatically finalized and will not be resulted. Juancarlos Han MD IMG DIAGNOSTIC I MAGING ORDERABLES [facility] * MG MAMMOGRAM SCREENING BILATERAL W JADE (04/12/2022 9:19 AM EST) Anatomical Region Laterality Modality Breast Bilateral Mammography 04/15/2022 2:06 PM EST Narrative 04/15/2022 2:08 PM EST CLINICAL DATA: ??Screening. EXAM: DIGITAL SCREENING BILATERAL MAMMOGRAM WITH TOMOSYNTHESIS AND CAD TECHNIQUE: Bilateral screening digital craniocaudal and mediolateral oblique mammograms were obtained. Bilateral screening digital breast tomosynthesis was performed. The images were evaluated with computer-aided detection. COMPARISON: ??Previous exam(s). ACR Breast Density Category b: There are scattered areas of fibroglandular density. FINDINGS: There are no findings suspicious for malignancy. IMPRESSION: No mammographic evidence of malignancy. A result letter of this screening mammogram will be mailed directly to the patient. RECOMMENDATION: Screening mammogram in one year. (Code:SM-B-01Y) BI-RADS CATEGORY ??1: Negative. The please Insert Correct Screening Template Electronically Signed ??By: Lizette ??Thien Foss ??On: 04/15/2022 14:08 Procedure Note Lizette Neumann MD - 04/15/2022 CLINICAL DATA: Screening. EXAM: DIGITAL SCREENING BILATERAL MAMMOGRAM WITH TOMOSYNTHESIS AND CAD TECHNIQUE: Bilateral screening digital craniocaudal and mediolateral oblique mammograms were obtained. Bilateral screening digital breast tomosynthesis was performed. The images were evaluated with computer-aided detection. COMPARISON: Previous exam(s). ACR Breast Density Category b: There are scattered areas of fibroglandular density. FINDINGS: There are no findings suspicious for malignancy. IMPRESSION: No mammographic evidence of malignancy. A result letter of this screening mammogram will be mailed directly to the patient. RECOMMENDATION: Screening mammogram in one year. (Code:SM-B-01Y) BI-RADS CATEGORY 1: Negative. The please Insert Correct Screening Template Electronically Signed By: Lizette Neumann M.D. On: 04/15/2022 14:08 Day Iraheta MD IMG MAMMOGRA PHY ORDERABLES * FIT-DNA STOOL TEST (04/07/2022) Pathologist [facility] FIT DNA TEST Negative Historical Provider LAB BLOOD ORDERAB LES * TSH, 3rd Generation (03/29/2022 10:38 AM EST) Only the most recent of2 resultswithin the time period is included. [facility] TSH 3.58 0.45 - 5.33 UIU/ML 03/29/2022 1:32 PM [facility] Blood Venipuncture / Unknown 03/29/2022 10:38 AM EST 03/29/2022 10:38 AM EST Day Iraheta MD LAB BLOOD OR DERABLES Performing Organization Address City/State/[facility] Co de Phone Number [facility] CLIA# [id number] [address] [place] [address] * Lipid Profile (03/29/2022 10:38 AM EST) Only the most recent of2 resultswithin the time period is included. [facility] Total Cholesterol 153 25 - 199 MG/DL 03/29/2022 1:07 PM [facility] Triglycerides 144 10 - 150 MG/DL 03/29/2022 1:07 PM [facility] HDL Cholesterol 57 35 - 135 MG/DL 03/29/2022 1:07 PM [facility] LDL Cholesterol Calculated 67 0 - 99 MG/DL 03/29/2022 1:07 PM [facility] Total Chol / HDL Cholesterol 2.7 <4.5 03/29/2022 1:07 PM [facility] Non-HDL Cholesterol 96 MG/DL 03/29 1:07 PM [facility] Comment:TARGET: <(LDL-C TARG ET + 30)MG/DL Coronary Heart Disease Risk Table 03/29/2022 1:07 PM [facility] Comment: TOTAL CHOLESTEROL/HDL RATIO:CHD RISK CORONARY HEART DISEASE RISK TABLE ?MEN ? WOMEN 1/2 AVERAGE RISK ?3.4 ?3.3 AVERAGE RISK ?5.8 ?4.4 2 X AVERAGE RISK ?9.6 ?7.1 3 X AVERAGE RISK ?23.4 ? 11.0 Use the calculated Patient Ratio and the CHD Risk Table to determine the patient's CHD Risk. ATP III Classification (LDL): <100 ? mg/dl ? Optimal 100-129 ?mg/dl ? Near or Above Optimal 130-159 ?mg/dl ? Borderline 160-189 ?mg/dl ? High >190 ? mg/dl ? Very High Blood Venipuncture / Unknown 03/29/2022 10:38 AM EST 03/29/2022 10:38 AM EST Day Iraheta MD LAB BLOOD OR DERABLES Performing Organization Address City/[facility] Co de Phone Number [facility] CLIA# [id number] [address] [place] [address] * B12, Vitamin (03/29/2022 10:38 AM EST) Only the most recent of2 resultswithin the time period is included. Vitamin B12 518 200 - 900 pg/mL 03/29/2022 1:32 PM EST [facility] Blood Venipuncture / Unknown 03/29/2022 10:38 AM EST 03/29/2022 10:38 AM EST Day Iraheta MD LAB BLOOD OR DERABLES Performing Organization Address City/[facility] Co de Phone Number [facility] CLIA# [id number] [address] [place] [address] * (ABNORMAL) CBC and Differential (03/29/2022 10:38 AM EST) Only the most recent of2 resultswithin the time period is included. WBC 11.1(H) 4.4 - 11.0 x 10*3/uL 03/29/2022 12:55 PM [facility] RBC 4.92 4.10 - 5.10 x 10*6/uL 03/29/2022 12:55 PM [facility] Hemoglobin 14.2 12.3 - 15.3 G/DL 03/29/2022 12:55 PM [facility] Hematocrit 42.7 35.9 - 44.6 % 03/29/2022 12:55 PM [facility] MCV 86.9 80.0 - 96.0 FL 03/29/2022 12:55 PM [facility] MCH 28.8 27.5 - 33.2 PG 03/29/2022 12:55 PM [facility] MCHC 33.1 33.0 - 37.0 G/DL 03/29/2022 12:55 PM [facility] RDW 14.1 12.3 - 17.0 % 03/29/2022 12:55 PM [facility] Platelets 339 150 - 450 X 10*3/uL 03/29/2022 12:55 PM [facility] MPV 7.1 6.8 - 10.2 FL 03/29/2022 12:55 PM [facility] Neutrophil % 58 % 03/29/2022 12:55 PM [facility] Lymphocyte % 29 % 03/29/2022 12:55 PM [facility] Monocyte % 9 % 03/29/2022 12:55 PM [facility] Eosinophil % 3 % 03/29/2022 12:55 PM [facility] Basophil % 1 % 03/29/2022 12:55 PM [facility] Neutrophil Absolute 6.5 1.8 - 7.8 x 10*3/uL 03/29/2022 12:55 PM [facility] Lymphocyte Absolute 3.3 1.0 - 4.8 x 10*3/uL 03/29/2022 12:55 PM [facility] Monocyte Absolute 1.0(H) 0.0 - 0.8 x 10*3/uL 03/29/2022 12:55 PM [facility] Eosinophil Absolute 0.3 0.0 - 0.5 x 10*3/uL 03/29/2022 12:55 PM [facility] Basophil Absolute 0.1 0.0 - 0.2 x 10*3/uL 03/29/2022 12:55 PM [facility] Blood Venipuncture / Unknown 03/29/2022 10:38 AM EST 03/29/2022 10:38 AM EST Day Iraheta MD LAB BLOOD OR DERABLES [facility] CLIA# [id number] [address] [place], [place] [id number] * (ABNORMAL) Comprehensive Metabolic Panel (03/29/2022 10:38 AM EST) Only the most recent of2 resultswithin the time period is included. Sodium 138 135 - 146 MMOL/L 03/29/2022 1:07 PM [facility] Potassium 3.8 3.5 - 5.3 MMOL/L 03/29/2022 1:07 PM [facility] Chloride 102 98 - 110 MMOL/L 03/29/2022 1:07 PM [facility] CO2 28 23 - 30 MMOL/L 03/29/2022 1:07 PM [facility] BUN 10 8 - 24 MG/DL 03/29/2022 1:07 PM [facility] Glucose 100(H) 70 - 99 MG/DL 03/29/2022 1:07 PM [facility] Comment:Patients taking eltr ombopag at doses >/= 100 mg daily may show falsely elevated values of 10% or greater. Creatinine 0.61 0.50 - 1.50 MG/DL 03/29/2022 1:07 PM [facility] Calcium 8.9 8.5 - 10.5 MG/DL 03/29/2022 1:07 PM [facility] Total Protein 7.2 6.0 - 8.3 G/DL 03/29/2022 1:07 PM [facility] Comment:Patients taking eltr ombopag at doses >/= 100 mg daily may show falsely elevated values of 10% or greater. Albumin 4.2 3.5 - 5.0 G/DL 03/29/2022 1:07 PM [facility] Total Bilirubin 0.5 0.1 - 1.2 MG/DL 03/29/2022 1:07 PM [facility] Comment:Patients taking eltr ombopag at doses >/= 100 mg daily may show falsely elevated values of 10% or greater. Alkaline Phosphatase 104 25 - 125 IU/L or U/L 03/29/2022 1:07 PM [facility] AST (SGOT) 28 5 - 40 IU/L or U/L 03/29/2022 1:07 PM [facility] ALT (SGPT) 32 5 - 50 IU/L or U/L 03/29/2022 1:07 PM [facility] Anion Gap 8 4 - 14 MMOL/L 03/29/2022 1:07 PM [facility] Est. GFR >90 >=60 ML/MIN/1.7 3 M*2 03/29/2022 1:07 PM [facility] Comment: GFR estimated by CKD-EPI equations(NKF 2020). Recommend confirmation of Cr-based eGFR by using Cys-based eGFR and other filtration markers (if applicable) in complex cases and clinical decision-making, as needed. Blood Venipuncture / Unknown 03/29/2022 10:38 AM EST 03/29/2022 10:38 AM EST Day Iraheta MD LAB BLOOD OR DERABLES [facility] CLIA# [id number] [address] [place] [address] Visit Diagnoses Diagnosis Start Date Paroxysmal atrial fibrillation (HCC) Atrial fibrillation 01/19/2021 Other secondary hypertension 01/19/2021 Obstructive sleep apnea syndrome Obstructive sleep apnea (adult) (pediatric) 01/19/2021 Postoperative hypothyroidism Postsurgical hypothyroidism 01/19/2021 Morbid obesity (HCC) Morbid obesity 01/19/2021 History of thyroid cancer Personal history of malignant neoplasm of thyroid 01/19/2021 Dyslipidemia Other and unspecified hyperlipidemia 01/19/2021 Anxiety Anxiety state, unspecified 01/19/2021 Vitamin D deficiency 01/19/2021 Encounter for health maintenance examination in adult 01/19/2021 Non compliance w medication regimen 01/19/2021 Abnormal LFTs (liver function tests) 01/19/2021 Preop cardiovascular exam Pre-operative cardiovascular examination 07/31/2021 [place] eye disease of left eye 03/29/2022 Cough, unspecified type 03/29/2022 Encounter for health maintenance examination in adult 03/29/2022 Cough, unspecified type 03/29/2022 Sore throat Acute pharyngitis 03/29/2022 [place] eye disease of left eye 03/29/2022 Encounter for health maintenance examination in adult 03/29/2022 Obstructive sleep apnea syndrome Obstructive sleep apnea (adult) (pediatric) 03/29/2022 Vitamin D deficiency 03/30/2022 Prediabetes Other abnormal glucose 03/30/2022 Screening mammogram for breast cancer 03/31/2022 Vaginal yeast infection Candidiasis of vulva and vagina 03/31/2022 Encounter for Medicare annual wellness exam 03/31/2022 Attention deficit disorder, unspecified hyperactivity presence 04/05/2022 Nocturia 04/07/2022 Obstructive sleep apnea syndrome Obstructive sleep apnea (adult) (pediatric) 04/12/2022 Screening mammogram for breast cancer 04/12/2022 OLIVE (generalized anxiety disorder) Generalized anxiety disorder 04/27/2022 OAB (overactive bladder) 05/06/2022 Urinary frequency 05/06/2022 Nocturia 05/06/2022 Abnormal urine findings Other nonspecific finding on examination of urine 05/06/2022 Vaginal atrophy Postmenopausal atrophic vaginitis 05/06/2022 Pelvic floor weakness 05/06/2022 OLIVE (generalized anxiety disorder) Generalized anxiety disorder 05/10/2022 Morbid obesity (HCC) Morbid obesity 05/10/2022 Dyslipidemia Other and unspecified hyperlipidemia 05/10/2022 Fibromyalgia Unspecified myalgia and myositis 05/10/2022 Severe episode of recurrent major depressive disorder, without psychotic features (HCC) 05/10/2022 Obstructive sleep apnea syndrome Obstructive sleep apnea (adult) (pediatric) 05/12/2022 JUSTYNA (obstructive sleep apnea) Obstructive sleep apnea (adult) (pediatric) 05/14/2022 Nocturia 05/14/2022 Urinary frequency 05/14/2022 OAB (overactive bladder) 05/14/2022 Muscle weakness Muscle weakness (generalized) 05/14/2022 Muscle spasm Spasm of muscle 05/14/2022 Obstructive sleep apnea syndrome Obstructive sleep apnea (adult) (pediatric) 05/19/2022 OLIVE (generalized anxiety disorder) Generalized anxiety disorder 05/24/2022 JUSTYNA (obstructive sleep apnea) Obstructive sleep apnea (adult) (pediatric) 05/25/2022 JUSTYNA (obstructive sleep apnea) Obstructive sleep apnea (adult) (pediatric) 06/01/2022 Lung density on x-ray 06/04/2022 Severe episode of recurrent major depressive disorder, without psychotic features (HCC) 06/07/2022 Lung density on x-ray 06/11/2022 Lung nodule, solitary 06/11/2022 Lung nodule, solitary 06/29/2022 Pulmonary parenchymal mass 07/08/2022 Iron deficiency anemia, unspecified iron deficiency anemia type 07/15/2022 Paroxysmal atrial fibrillation (HCC) Atrial fibrillation 07/15/2022 Prediabetes Other abnormal glucose 07/15/2022 Vitamin D deficiency 07/15/2022 Pain in both hands 07/15/2022 Pain in both hands 07/15/2022 Paroxysmal atrial fibrillation (HCC) Atrial fibrillation 07/15/2022 Other secondary hypertension 07/15/2022 Postoperative hypothyroidism Postsurgical hypothyroidism 07/15/2022 Dyslipidemia Other and unspecified hyperlipidemia 07/15/2022 Iron deficiency anemia, unspecified iron deficiency anemia type 07/15/2022 Morbid obesity (HCC) Morbid obesity 07/15/2022 Vitamin D deficiency 07/15/2022 Prediabetes Other abnormal glucose 07/15/2022 Pulmonary parenchymal mass 07/27/2022 Severe episode of recurrent major depressive disorder, without psychotic features (HCC) 08/06/2022 OLIVE (generalized anxiety disorder) Generalized anxiety disorder 08/06/2022 Pulmonary parenchymal mass 08/11/2022 Lung nodule, solitary 08/11/2022 Lung nodule, solitary 08/23/2022 Community acquired pneumonia of right lower lobe of lung 08/26/2022 Sore throat Acute pharyngitis 08/26/2022 Cough, unspecified type 08/26/2022 Prediabetes Other abnormal glucose 08/27/2022 Severe episode of recurrent major depressive disorder, without psychotic features (HCC) 08/30/2022 OLIVE (generalized anxiety disorder) Generalized anxiety disorder 08/30/2022 Severe episode of recurrent major depressive disorder, without psychotic features (HCC) 09/27/2022 OLIVE (generalized anxiety disorder) Generalized anxiety disorder 09/27/2022 Sore throat Acute pharyngitis 09/30/2022 COVID-19 09/30/2022 Nocturnal hypoxia 10/26/2022 Obstructive sleep apnea syndrome Obstructive sleep apnea (adult) (pediatric) 10/26/2022 Acute pain of left shoulder 10/29/2022 Calcific tendonitis of left shoulder 10/29/2022 Lung nodule, solitary 11/10/2022 Severe episode of recurrent major depressive disorder, without psychotic features (HCC) 11/15/2022 OLIVE (generalized anxiety disorder) Generalized anxiety disorder 11/15/2022 Lung nodule, solitary 11/25/2022 Axillary lymphadenopathy Enlargement of lymph nodes 11/25/2022 Viral illness Unspecified viral infection, in conditions classified elsewhere and of unspecified site 12/09/2022 Sore throat Acute pharyngitis 12/09/2022 Fatigue, unspecified type 12/09/2022 Acute pain of right shoulder 01/24/2023 Right elbow pain Pain in joint, upper arm 01/24/2023 Acute pain of both knees 01/24/2023 Severe episode of recurrent major depressive disorder, without psychotic features (HCC) 02/07/2023 OLIVE (generalized anxiety disorder) Generalized anxiety disorder 02/07/2023 Trigger ring finger, unspecified laterality 02/15/2023 Primary osteoarthritis of both knees 02/15/2023 Trigger ring finger, unspecified laterality 02/16/2023 Trigger ring finger, unspecified laterality 02/16/2023 Lung nodule, solitary 02/16/2023 Lung nodule, solitary 02/24/2023 Trigger ring finger, unspecified laterality 03/21/2023 Joint pain in fingers of both hands 03/21/2023 Impaired mobility and ADLs 03/21/2023 Primary osteoarthritis of both knees 03/21/2023 Muscle weakness Muscle weakness (generalized) 03/21/2023 Chronic low back pain without sciatica, unspecified back pain laterality 03/21/2023 Weakness of both hips 03/21/2023 Impaired functional mobility, balance, gait, and endurance 03/21/2023 Goals Goal Patient Goal Type Associated Problems Recent Progress Patient-Stated? Author OT Goal 1 - OT Goals No Selma Garrett Tita, OTR/L Note: Fabricate B RF trigger finger orthoses to reduce triggering in 1 visit. 03/21/23: GOAL MET, adjust as needed OT Goal 2 - OT Goals No Gilbertoabhinav Selma Tita, OTR/L Note: Patient will report decreased pain from 9/10 to 4.10 in order to open a jar in 8 visits. OT Goal 3 - OT Goals No Steffanyneal Selma Tita, OTR/L Note: Patient will improve QuickDash score from 47% to 20% in order to increase functional independence with self-care and IADL tasks in 8 visits. Physical Therapy Goals PT Goals No Geena Wiggins, PT Note: Short Term Goals (STG) - Time Frame: 6 weeks STG 1: Pt will be independent with HEP to improve their ability to self-manage symptoms and reduce risk of recurrence STG 2: Pt will report <2/10 bilateral knee pain by 6th visit for improved functional activity tolerance. STG 3: Pt will demonstrate proper body mechanics with retrieving objects from ground by 6th in order to reduce LBP. STG 4: Pt will increase bilateral Hip and Knee strength to 4+/5 to improve their ability to perform functional mobility/ADLs. Jail Goals (LTG) - Time Frame 12 weeks LTG 1: Pt will report </= 2/10 L Knee pain with all ADL's for return to PLOF. LTG 2: Pt will increase bilateral Hip and Knee strength to 5/5 to improve their ability to perform functional mobility/ADLs. LTG 3: Pt will demonstrate proper squatting mechanics with <2/10 pain by 12th visit in order to improve functional squatting for increased independent with ADLs. LTG 4: Pt will improve LEFS score by >/= 25% to indicate improved functional ability. Care Teams [employer]or [employer]evelopment Manager Relationship Specialty Start Date End Date Day Iraheta MD PCP - General Internal Medicine 02/16/22 Mary Hernandez NP [address] [place] [address] Nurse Practitioner Nurse Practitioner 10/28/22
--- OUTSIDE RECORDS SUMMARY | 2024-03-28 09:50 | XMS_ITS | Encounter Summary ---
Author Organization [facility] Address [address] [place] [address] Care Team Providers Care Elevated Guard Name Role Phone Ellie Jones MD Primary Care Provider Un available Owen Tejada MD Primary Care Provider Unavail able Gold Beaulieu MD Primary Care Provider [phone] [facility], Pcp Primary Care Provider Unavailabl e Encounter Details Date Type Department Care Team Description 07/02/2015 [place] Operator Report Medical Records [address] [place] [id number] Alli Melendez Social History Tobacco Use Types Packs/Day Years [...] on filedocumented in this encounter Care Teams Elevated Guard Relationship Specialty Start Date End Date Ellie Jones MD PCP - General Internal Medicine 05/28/15 9 Owen Tejada MD PCP - General Internal Medicine 10/05/18 12/05/19 Gold Beaulieu MD [address] [place] [address] PCP - General Internal Medicine 12/06/19 10/09/20 [facility], Pcp [address] [place] [address] PCP - General Internal Medicine 10/10/20 documented as of this encounter
--- OUTSIDE RECORDS SUMMARY | 2024-03-28 09:50 | XMS_ITS | Encounter Summary ---
Author Organization [facility] Address [address] [place] [address] Care Team Providers Care Humanities Department Chair Name Role Phone Grady Bah MD Primary Care Provider [phone] Claudette Benjamin DO Primary Care Pro vider Unavailable Grady Bah MD Primary Care Provider [phone] Claudette Benjamin DO Primary Care Pro vider Unavailable Ellie Jones MD Primary Care Provider Un available Owen Tejada MD Primary Care Provider Unavail able Gold Beaulieu MD Primary Care Provider [phone] Ellie Jones MD Primary Care Provider Un available [facility], Pcp Primary Care Provider Unavailabl e Encounter Details Date Type Department Care Team Description 07/06/2012 Hospital Medical Records [address] [place] [id number] Paige Grover MD Social History Tobacco Use [...] on filedocumented in this encounter Care Teams Humanities Department Chair Relationship Specialty Start Date End Date Grady Bah MD [address] [place] [id number] PCP - General 03/21/09 11/01/12 Claudette Benjamin, [address] [address] PCP - General Internal Medicine 11/02/12 12/24/12 Grady Bah MD [address] [place] [id number] PCP - General Internal Medicine 12/25/12 04/22/13 Claudette Benjamin, [address] [address] PCP - General Internal Medicine 04/23/13 11/21/13 Ellie Jones MD [address] [place] [id number] PCP - General Internal Medicine 05/28/15 10/04/18 Owen Tejada MD [address] [place] [id number] PCP - General Internal Medicine 10/05/18 12/05/19 Gold Beaulieu MD [address] [place] [id number] PCP - General Internal Medicine 12/06/19 10/09/20 Ellie Jones MD [address] [place] [id number] PCP - General 11/22/13 05/27/15 [facility], [address] [address] PCP - General Internal Medicine 10/10/20 documented as of this encounter
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
--- OUTSIDE RECORDS SUMMARY | 2024-03-28 09:51 | XMS_ITS | Encounter Summary ---
Author Organization [facility] Address [address] [place] [address] Care Team Providers Care Marine Equipment Sales Engineer Name Role Phone Ellie Jones MD Primary Care Provider Un available Owen Tejada MD Primary Care Provider Unavail able Gold Beaulieu MD Primary Care Provider [phone] [facility], Pcp Primary Care Provider Unavailabl e Encounter Details Date Type Department Care Team Description 06/20/2015 Cashier Payments Received Report Medical Records [address] [place] [id number] Alli Melendez Social History Tobacco Use Types [...] on filedocumented in this encounter Care Teams Marine Equipment Sales Engineer Relationship Specialty Start Date End Date Ellie Jones MD PCP - General Internal Medicine 05/28/15 9 Owen Tejada MD PCP - General Internal Medicine 10/05/18 12/05/19 Gold Beaulieu MD [address] [place] [address] PCP - General Internal Medicine 12/06/19 10/09/20 [facility], Pcp [address] [place] [address] PCP - General Internal Medicine 10/10/20 documented as of this encounter
--- OUTSIDE RECORDS SUMMARY | 2024-03-28 09:51 | XMS_ITS | Encounter Summary ---
Author Organization [facility] Address [address] [place] [address] Care Team Providers Care Pumper Gauger Name Role Phone Grady Bah MD Primary Care Provider Claudette Benjamin DO Primary Care Pro vider Unavailable Grady Bah MD Primary Care Provider [phone] Claudette Benjamin DO Primary Care Pro vider Unavailable Ellie Jones MD Primary Care Provider Un available Owen Tejada MD Primary Care Provider Unavail able Gold Beaulieu MD Primary Care Provider [phone] Ellie Jones MD Primary Care Provider Un available [facility], Pcp Primary Care Provider Unavailabl e Encounter Details Date Type Department Care Team Description 08/15/2012 Hospital Medical Records [address] [place] [id number] Liu Almanza MD Social History Tobacco Use Types Packs/Day [...] on filedocumented in this encounter Care Teams Pumper Gauger Relationship Specialty Start Date End Date Grady Bah MD [address] [place] [address] PCP - General 03/21/09 11/01/12 Claudette Benjamin, DO [address] [place] [address] PCP - General Internal Medicine 11/02/12 12/24/12 Grady Bah MD [address] [place] [address] PCP - General Internal Medicine 12/25/12 04/22/13 Claudette Benjamin, DO [address] [place] [address] PCP - General Internal Medicine 04/23/13 11/21/13 Ellie Jones MD [address] [place] [address] PCP - General Internal Medicine 05/28/15 10/04/18 Owen Tejada MD [address] [place] [address] PCP - General Internal Medicine 10/05/18 12/05/19 Gold Beaulieu MD [address] [place] [address] PCP - General Internal Medicine 12/06/19 10/09/20 Ellie Jones MD [address] [place] [address] PCP - General 11/22/13 05/27/15 [facility], [address] [address] PCP - General Internal Medicine 10/10/20 documented as of this encounter
--- OUTSIDE RECORDS SUMMARY | 2024-03-28 09:51 | XMS_ITS | Encounter Summary ---
Author Organization [employer] [facility] visits prior to 04/30/[place] [address] Care Team Providers Care Time Broker Name Role Phone Day Iraheta MD Primary Care Provid er Unavailable Mary Hernandez POT FIREMAN Unavailable [phone] Reason for Visit * Reason Onset Date Comments urgent care referral 01/25/2023 Encounter Details Date Type Department Care Team Description 01/25/2023 Telephone [facility], General - [address] [place] [address] Self, A Referral urgent care referral Social History Tobacco Use Types Packs/Day Years Used Date Smoking Tobacco: Former Cigarettes Q uit: 02/28/1981 Passive Smoke Exposure: Never Smokeless Tobacco: Never Alcohol Use Standard Drinks/Week [...] How often do you attend chur or latter day services? More than 4 times per year 03/25/2022 Do you belong to any clubs o r organizations such as anglican groups, unions, fraternal or athletic groups, or [...] very hard 03/25/2022 PHQ-2 Answer Date Recorded [facility] PHQ2 SCORE 0 01/24/2023 [facility] of Occupat ional Health - [...] place to sleep or slept in a halfway (including now)? No 03/25/2022 Sex and Gender Information Value Date Recorded Sex Assigned at Female 01/19/2021 3:54 PM EST Gender Identity Female 01/19/2021 3:54 PM EST Sexual Orientation Not on file documented as of this encounter Miscellaneous Notes * Telephone Encounter - Vickie Guillen - 01/26/2023 1:27 PM EST Left VM advising call back to schedule urgent care referral. 2nd attempt. Letter mailed. * Telephone Encounter - Vickie Guillen - 01/25/2023 3:55 PM EST Left VM advising call back to schedule urgent care referral. Eval right shoulder/elbow; bilateral knee. Seen at 01.24.2023. 1-2 week follow up. 1st attempt, will try again later. * Telephone Encounter - Vickie Guillen - 01/25/2023 3:54 PM EST ----- Message from Elke Butler sent at 01/24/2023 10:51 AM EST ----- Regarding: FW: Hospital Follow Up Appointment ----- Message ----- From: Janel Leonard Sent: 01/24/2023 10:45 AM EST To: [facility] Subject: Hospital Follow Up Appointment How many appts. are being requested for this pt.?1 Who does the apointment need to be with?A particular service Which Service does this appointment need to be scheduled with?orthopedics Was a consult performed by this service during this hospital stay?No What is the reason for the visit or diagnosis?right shoulder OA and bilateral knee OA. When does the patient need to be seen?In 1-2 Weeks Book earliest available appointment if specified date range above is unavailable?Yes Are other ancillary orders such as labs, imaging, therapies, etc. required for this follow up appt.?No documented in this encounter Plan of Treatment Not on file documented as of this encounter Visit Diagnoses Not on filedocumented in this encounter Care Teams Time Broker Relationship Specialty Start Date End Date Day Iraheta MD PCP - General Internal Medicine 02/16/22 Mary Hernandez NP [address] [place] [address] Nurse Practitioner Nurse Practitioner 10/28/22 documented as of this encounter
--- OUTSIDE RECORDS SUMMARY | 2024-03-28 09:51 | XMS_ITS | Encounter Summary ---
Author Organization [facility] [employer] [facility] visits prior to 04/30/2023. [place] [address] Care Team Providers Care Vice President Payer Name Role Phone Day Iraheta MD Primary Care Provid er Unavailable Mary Hernandez FIREWALL ENGINEER Unavailable [phone] Reason for Visit * Reason Onset Date Comments urgent care referral 10/29/2022 Encounter Details Date Type Department Care Team Description 10/29/2022 [facility] [address] [address] Self, A Referral urgent care referral Social [...] How often do you attend chur or nondenominational services? More than 4 times per year 03/25/2022 Do you belong to any clubs o r organizations such as congregation groups, unions, fraternal or athletic groups, or [...] very hard 03/25/2022 PHQ-2 Answer Date Recorded SDDE PHQ2 SCORE 0 10/29/2022 [facility] of Occupat ional Health - Occupational [...] * Telephone Encounter - Vickie Guillen - 11/03/2022 12:33 PM EDT Tried to contact patient to schedule appointment. No answer // unable to leave VM. AC to mail letter. * Telephone Encounter - Vickie Guillen - 10/29/2022 9:50 AM EDT Contacted patient to schedule below urgent care referral. Patient requested call back at a later time, stated I can't do this right now and hung up. Eval left shoulder pain, calcific tendinopathy. Seen at 9.. 1-2 week follow up. 1st attempt, will try again later. * Telephone Encounter - Vickie Guillen - 10/29/2022 9:50 AM EDT ----- Message from Elke Butler sent at 10/29/2022 8:53 AM EDT ----- Regarding: FW: Urgent Care F/U ----- Message ----- From: Lorena Roth Sent: 10/29/2022 8:50 AM EDT To: [facility] Subject: Urgent Care F/U Which Service does this appointment need to be scheduled with?ortho Was a consult performed by this service during this hospital stay?No What is the reason for the visit or diagnosis?left shoulder pain, calcific tendinopathy When does the patient need to be seen?In 1-2 Weeks Book earliest available appointment if specified date range above is unavailable?Yes Thank you - Lorena - Bertin Card documented in this encounter Plan of Treatment [...] documented as of this encounter Care Teams Vice President Payer Relationship Specialty Start Date End Date Day Iraheta MD PCP - General Internal Medicine 02/16/22 Mary Hernandez NP [address] [place] [address] Nurse Practitioner Nurse Practitioner 10/28/22 documented as of this encounter
--- OUTSIDE RECORDS SUMMARY | 2024-03-28 09:51 | XMS_ITS | Encounter Summary ---
Author Organization [email or web address] [facility] visits prior to 04/30/2023. [place] [address] Care Team Providers Care Braiding Machine Tender Name Role Phone Day Iraheta MD Primary Care Provid er Unavailable Mary Hernandez ABORIGINAL LIAISON OFFICER Unavailable [phone] Reason for Visit * Reason Onset Date Comments medical concerns 08/25/2022 Encounter Details Date Type Department Care Team Description 08/25/2022 Telephone Pulmonary & Critical Care - [address] [place] [address] [place] [address] medical concerns Social History Tobacco Use Types Packs/Day Years [...] How often do you attend chur or roman catholic services? More than 4 times per year 03/25/2022 Do you belong to any clubs o r organizations such as judaism groups, unions, fraternal or athletic groups, or [...] very hard 03/25/2022 PHQ-2 Answer Date Recorded SDSD PHQ2 SCORE 0 08/26/2022 [facility] of Occupat ional Health - Occupational Stress [...] place to sleep or slept in a half-way (including now)? No 03/25/2022 Sex and Gender Information Value Date Recorded Sex Assigned at Female 01/19/2021 3:54 PM EST Gender Identity Female 01/19/2021 3:54 PM EST Sexual Orientation Not on file COVID-19 Exposure Response Date Recorded In the last 10 days, have yo u been in contact with someone who was confirmed or suspected to have Coronavirus/COVID-19? Unable to assess 08/06/2022 8:03 AM EDT documented as of this encounter Miscellaneous Notes * Telephone Encounter - Arlene Drummond, TAMMY - 08/25/2022 3:39 PM EDT TC to pt, name and verified. States x3 days cough with thick white mucous. Denies foul smell ortaste, denies fever, MARTINEZ, chest pain. Pt is concerned r/t chronic back pain and sates that the coughis so forceful that she feels like she is going to throw her back out. Had bronch 08/11/22. Does not want codeine cough syrup. Advised humidifier, motrin for throat pain associated with cough and honey. Pt states that she has been taking succrets. Advised that I will route to MD Kathleen for review. Electronically signed by: Arlene Drummond RN 08/25/22 1545 * Telephone Encounter - Marj Sanderson - 08/25/2022 12:35 PM EDT Patient called in to about starting to have hoarseness and thick mucus coming up when coughing Thatstarted this week Patient had BRONCHOSCOPY on August 11 Phone at [phone] documented in this encounter Plan of Treatment [...] documented as of this encounter Care Teams Braiding Machine Tender Relationship Specialty Start Date End Date Day Iraheta MD PCP - General Internal Medicine 02/16/22 Mary Hernandez NP [address] [place] [address] Nurse Practitioner Nurse Practitioner 10/28/22 documented as of this encounter
--- OUTSIDE RECORDS SUMMARY | 2024-03-28 09:51 | XMS_ITS | Encounter Summary ---
Author Organization [facility] visits prior to 04/30/2023. [place] [address] Care Team Providers Care Line Installer Name Role Phone Day Iraheta MD Primary Care Provid er Unavailable Mary Hernandez SHREDDER OPERATOR Unavailable [phone] Reason for Visit * Reason Onset Date Comments Nurse Triage-patient 08/09/2022 Encounter Details Date Type Department Care Team Description 08/09/2022 Telephone [facility] Internal Medicine - [address] [address] Day Iraheta MD Nurse Triage-patient Social History Tobacco Use Types Packs/Day Years [...] often do you attend chur ch or methodist services? More than 4 times per year 03/25/2022 Do you belong to any clubs o r organizations such as shinto groups, unions, fraternal or athletic groups, or [...] very hard 03/25/2022 PHQ-2 Answer Date Recorded [facility] PHQ2 SCORE 0 07/15/2022 [facility] of Occupat ional Health - Occupational Stress [...] place to sleep or slept in a alf (including now)? No 03/25/2022 Sex and Gender [...] encounter Miscellaneous Notes * Telephone Encounter - Remigio Diop RN - 08/10/2022 2:29 PM EDT Pt advised and will call back if sx worsen Electronically signed by: Remigio Diop RN 08/10/22 1429 * Telephone Encounter - Archana Borges - 08/09/2022 2:58 PM EDT Patient calling wanting to know if she can be referred to a specialist about the swelling her leg. documented in this encounter Plan of Treatment [...] documented as of this encounter Care Teams Line Installer Relationship Specialty Start Date End Date Day Iraheta MD PCP - General Internal Medicine 02/16/22 aMry Hernandez NP [address] [place] [address] Nurse Practitioner Nurse Practitioner 10/28/22 documented as of this encounter
--- OUTSIDE RECORDS SUMMARY | 2024-03-28 09:53 | XMS_ITS | Encounter Summary ---
Author Organization [facility] Address [address] [place] [address] Care Team Providers Care Damage Cutter Name Role Phone Pcp, No Primary Care Provider Unavailabl e Encounter Details Date Type Department Care Team (Latest Contact Info) Description 03/21/2024 Travel Social History Tobacco Use Types Packs/Day Years Used Date Smoking Tobacco: Former Cigarettes Q uit: 02/28/1981 Passive Smoke Exposure: Never Smokeless Tobacco: Never Alcohol Use Standard Drinks/Week Comments Not Currently 0 (1 standard drink = 0.6 oz pur e alcohol) PHQ-2 Answer Date Recorded Patient Health Questionnaire-2 Score 0 03/21/2024 PHQ-9 Answer Date Recorded Patient Health Questionnaire-9 Score 7 10/26/2022 Comments No Sex and Gender Information Value Date Recorded Sex Assigned at Female 09/01/2020 9:31 AM EDT Legal Sex Female 9:31 AM EDT Gender Identity Not on file Sexual Orientation Not on file documented as of this encounter Functional Status * Question Answer Date of Assessment Author Little interest or pleasure in doing things Not at all 03/21/2024 3:27 PM Hung Cabral CMA Feeling down, depressed, or hopeless Not at all 03/21/2024 3:27 PM Hung Cabral CMA * Over the past 2 weeks, how often have you been bothered by any of the following problems? Question Answer Date of Assessment Author Patient Health Questionnaire-2 Score 0 03/21/2024 3:27 PM Hung Cabral, [facility] documented as of this encounter Plan of Treatment Upcoming Encounters Date Type Department Care Team (Late st Contact Info) Description 07/09/2024 9:00 AM EDT Appointment [facility] Imaging - RADIOLOGY CT [address] [place] [address] 07/19/2024 9:00 AM EDT Office Visit [facility] - 03 Pulmonary Medicine [address] [place] [phone] documented as of this encounter Goals Goal Patient Goal Type Associated Problems Recent Progress Patient-Stated? Author OTGoals General Yes Zoey Mcgee, OTR/L Note: POC end date: 08/11/23 (10 visits) Short Term Goals (STG) - Time Frame: 3 visits STG 1: Patient will demonstrate compliance and understanding to HEP by completing program 2x/daily as measured by increase in overall function. Skilled Nursing Goals (LTG) - Time Frame: 10 visits LTG 1: Pt's pain will decrease from 3/10 to 1/10 to allow for increased participation in ADLs, IADLs, and work/leisure tasks. LTG 2: Pt's Quick Dash score will decrease from 59.09 to 10 indicating increased functional use of affected hand and upper extremity with daily ADL/IADLs such as washing back, meal prep, and opening a jar. LTG 3: Pt will experience a 50% decrease in locking/catching sensation of affected digits. New POC: ends 10/25/2023(9 visits) Short Term Goals (STG) - Time Frame 4weeks STG 1: Patient will have a good understanding of instructed HEP addressing ROM, scar management, edema control, and graded strengthening. 09/07/2023: Not met- pt reports finding time to perform HEP STG 2: Patient's right index and ring finger A1 the scars will soften decreasing patient's digital tightness with light ADLs of washing hair and buttoning. : Met Plsql Developer Goals (LTG) - Time Frame 9 visits(10/25/2023) LTG 1: Patients pain level will decrease from a 3/10 to 0/10 enabling her to use her right hand for ADLs with no pain. LTG 2: Patient will be able to make a full composite fist, improving her ability to mingle operator and hold objects more securely. LTG 3: Patient's overall functional use of the right hand will increase as indicated by a decrease of 4 points on her QuickDASH score of 11.36 points. documented as of this encounter Visit Diagnoses Not on filedocumented in this encounter Additional Health Concerns Assessment Noted Time PHQ-9 Depression Total Score: 7 10/27/19 23 8:07 AM EDT documented as of this encounter Care Teams Damage Cutter Relationship Specialty Start Date End Date Pcp, No PCP - General Internal Medicine 01/12/24 documented as of this encounter
--- OUTSIDE RECORDS SUMMARY | 2024-03-28 09:53 | XMS_ITS | Encounter Summary ---
Author Organization [facility] Address [address] [place] [address] Care Team Providers Care Stock Handler Floorperson Name Role Phone Owen Tejada MD Primary Care Provider Unavail able Gold Beaulieu MD Primary Care Provider [phone] [facility] Primary Care Provider Unavailabl e Encounter Details Date Type Department Care Team Description 03/08/2019 Email Production Specialist Report Medical Records [address] [place] [id number] Alli Melendez Social History Tobacco Use Types [...] on filedocumented in this encounter Care Teams Stock Handler Floorperson Relationship Specialty Start Date End Date Owen Tejada MD PCP - General Internal Medicine 10/05/18 12/05/19 Gold Beaulieu MD [address] [place] [id number] PCP - General Internal Medicine 12/06/19 10/09/20 [facility], Pcp [address] [place] [id number] PCP - General Internal Medicine 10/10/20 documented as of this encounter
--- OUTSIDE RECORDS SUMMARY | 2024-03-28 09:53 | XMS_ITS | Clinical Summary ---
Author Organization [facility] Address [address] [place] [address] Care Team Providers Care Corrections Identification Technician Name Role Phone Pcp, No Primary Care Provider Unavailabl e Allergies Active Allergy Reactions Criticality Noted Date Comments Lamotrigine Rash Low 03/19/2019 Penicillins Rash Low 03/31/2009 Trouble Breathing Medications fluticasone propionate (FLONASE) 50 mcg/spray nasal spray 2 sprays Once Daily. 3 Active losartan (COZAAR) 100 mg tablet Take 100 mg by mouth Once Daily. 90 tablet 0 3 Active acetaminophen (TYLENOL) 325 mg tablet TK 2 TO 3 TS PO Q 6 H PRN P. NOT TO EXCEED 4000MG PER DAY 3 Active albuterol 2.5 mg /3 mL (0.083 %) nebulizer solution 3 Active azelastine (ASTELIN) 137 mcg (0.1 %) nasal spray 3 Active ergocalciferol (VITAMIN D2) 1,250 mcg (50,000 unit) capsule 3 Active hydroCHLOROthia zide (HYDRODIURIL) 25 mg tablet Take 25 mg by mouth Once Daily. 3 Active diclofenac sodium (Voltaren Arthritis Pain) 1 % gel APPLY 2 GRAMS TOPICALLY BID Active hydrOXYzine (ATARAX) 50 mg tablet Active levocetirizine (XYZAL) 5 mg tablet TAKE 1 TABLET BY MOUTH ONCE DAILY AT BEDTIME FOR ALLERGIES 4 Active LORazepam (ATIVAN) 2 mg tablet 3 Active rosuvastatin (CRESTOR) 20 mg tablet Take 20 mg by mouth daily. for cholesterol 4 Active tamsulosin (FLOMAX) 0.4 mg cap Take 1 capsule by mouth daily. 4 Active buPROPion (WELLBUTRIN XL) 300 mg 24 hr tablet Take 1 tablet (300 mg total) by mouth every morning. 90 tablet 1 4 Active QUEtiapine (SEROquel) 100 mg tablet Take 1-2 tabs at night 60 tablet 2 4 Active meloxicam (MOBIC) 15 mg tablet 4 Active Ozempic 0.25 mg or 0.5 mg (2 mg/3 mL) pen injector INJECT 0.25 MG INTO THE SKIN WEEKLY FOR 4 WEEKS THEN INCREASE TO 0.5 MG WEEKLY 4 Active tiZANidine (ZANAFLEX) 4 mg tablet Take 4 mg by mouth every 6 (six) hours as needed for muscle spasms. 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 Symptomatic again 2009 Vitamin D deficiency 10/18/2016 History of thyroid cancer 09/29/2015 Overview (04/21/2023): Papillary microcarcinoma resected 07/2012. F/u US 01/2013 negative, no further follow up recommended Primary osteoarthritis of both knees 08/21/2015 Overview (04/21/2023): Mild on xray 2016 Morbid obesity 06/05/2015 Dyslipidemia 11/08/2014 Depression 06/03/2014 Chronic low back pain 06/03/2014 Iron deficiency anemia 06/03/2014 Fibromyalgia 12/07/2012 Overview (04/21/2023): Follows with Neuro Obstructive sleep apnea syndrome 05/30/2012 Overview (04/21/2023): [facility] Polysomnogram: Date 12/08/2016; Wt 237# SE 90%; [...] Atrial fibrillation Non compliance w medication regimen Encounters Date Type Department Care Team Description 03/21/2024 3:00 PM EST Office Visit [facility] - Neurology [place] [address] [phone] Mary Hernandez NP Obstructive sleep apnea syndrome (Primary Dx) 03/21/2024 Travel 01/19/2024 8:40 AM EST Office Visit [facility] - 03 Pulmonary Medicine [address] [place] [address] [address] [place] [address] Alejandrina Kathleen DO Lung nodule (Primary Dx) 01/19/2024 Travel 01/16/2024 Travel 01/12/2024 2:30 PM EST Office Visit [facility] - Urgent Care [place] [address] [place] [address] Juan Cortez PA-C Acute bilateral low back pain without sciatica (Primary Dx) 01/12/2024 Travel 01/09/2024 Refill [facility] Internal Medicine - HPNP [address] [place] [address] Saravanan Herrera MD Medication Refill 01/03/2024 7:48 AM EST - 01/03/2024 11:59 PM EST Hospital Encounter [facility] Imaging - RADIOLOGY CT [address] [place] [address] Mass of middle lobe of right lung Discharge Disposition: Home or Self Care 01/03/2024 Travel 12/28/2023 8:20 AM EDT Office Visit [facility] - Behavioral Medicine [facility] [address] [place] [address] Edelmira Bates NP OLIVE (generalized anxiety disorder) (Primary Dx); Moderate episode of recurrent major depressive disorder (CMD) 12/28/2023 Travel 12/27/2023 Travel from Last 3 Months Immunizations Immunization Administration Dates Next Due Hep B, Unspecified 11/30/2007 Influenza, Unspecified 12/04/2009 Measles 11/30/2007 Mumps 11/30/2007 Tdap 12/04/2009 Family History Medical History Relation Comments Sleep disorder Daughter Diabetes Father Heart disease Father Hyperlipidemia Father Hypertension Father Diabetes Mother Hyperlipidemia Mother Hypertension Mother Sleep disorder Mother Breast cancer Other Relation Status Comments Daughter Alive Father Alive Mother Alive Other Social History Tobacco Use Types Packs/Day Years Used Date Smoking Tobacco: Former Cigarettes Q uit: 02/28/1981 Passive Smoke Exposure: Never Smokeless Tobacco: Never Tobacco Cessation:Counseling Given: Not Answered Alcohol Use Standard Drinks/Week Comments Not Currently [...] on file Sexual Orientation Not on file Last Filed Vital Signs Vital Sign Reading Time Taken Comments Blood Pressure 130/80 03/21/2024 3:28 PM EST Pulse 76 03/21/2024 3:28 PM EST Temperature 36.5 ??C (97.7 ??F) 01/19/2024 8:41 AM ES T Respiratory Rate 18 01/12/2024 1:54 PM EST Oxygen Saturation 96% 03/21/2024 3:28 PM EST Inhaled Oxygen Concentration - - Weight 102 kg (224 lb) 03/21/2024 3:28 PM EST Height 160 cm (5' 3 ) 03/21/2024 3:28 PM EST Body Mass Index 39.68 03/21/2024 3:28 PM EST Plan of Treatment Upcoming Encounters Date Type Department Care Team (Late st Contact Info) Description 07/09/2024 9:00 AM EDT Appointment [facility] Imaging - RADIOLOGY CT [address] [place] [address] 07/19/2024 9:00 AM EDT Office Visit [facility] - 03 Pulmonary Medicine [address] [place] [phone] Health Maintenance Due Date Last Done Comments Diabetes: Quantitative uACR for Kidney Evaluation 1960 Pneumococcal Vaccine: Pediatrics (0 to 5 years) and At-Risk Patients (6-64 Years) (1 of 2 - PCV) 10/16/1965 Diabetes: Foot Exam 10/16/1969 Diabetes: Retinopathy Screening 2 Year 10/16/1969 HIV Screening 10/16/1977 Hepatitis C Screening 10/16/1977 HPV/Cotest 10/16/1989 CT Colonography 10/16/2004 Colonoscopy 10/16/2004 Colorectal Cancer Screening 10/16/2004 FIT-DNA 10/16/2004 FIT 10/16/2004 FOBT 10/16/2004 Sigmoidoscopy 10/16/2004 Hepatitis B Vaccines (2 of 3 - 19+ 3-dose series) 12/28/2007 11/30/2007, 11/30/2007 ZOSTER VACCINE (1 of 2) 10/16/2009 Diabetes: Retinopathy Screening 1 Year 02/11/2018 02/11/2017 Diabetes: Retinopathy Screening Combo 02/11/2018 Adult RSV (60+ Years or ) (1 - Risk 60-74 years 1-dose series) 2019 DTaP/Tdap/Td Vaccines (2 - Td or Tdap) 12/05/2019 12/04/2009 Cervical Cancer Screening 09/24/2022 PAP SMEAR 09/24/2022 09/25/2019, 02/28/2019 Comprehensive Annual Visit 03/31/202303/31, 03/31/2022, 04/06/2021, Additional history exists Diabetes: eGFR for Kidney Evaluation 07/16/2023 07/15/2022, 03/29/2022 Diabetes: Hemoglobin A1C 07/16/2023 023, 07/15/2022, 03/29/2022, Additional history exists Influenza Vaccine (#1) 2023 , 12/04/2009, 12/04/2009, Additional history exists COVID-19 Vaccine ( season) 2023 01/24/2021 Breast Cancer Screening (Mammogram) 04/12/2024 04/12/2022 Depression Screening 03/21/2025 03/21/2024, 03/21/19 25 Medicare Annual Wellness (AWV) Subsequent Visits Discontinued 03/31/2022 Diabetes Screening Discontinued 07/15/2022, 0 07/15/2022, 06/29/2022, Additional history exists HIB Vaccines Aged Out No longer eligi [...] patient's age to complete this topic Meningococcal Conjugate (ACWY) Vaccine Aged Out No longer eligible based on patient's age to complete this topic Rotavirus Vaccines Aged Out No longer eligible based on patient's age to complete this topic Goals Goal Patient Goal Type Associated Problems Recent Progress Patient-Stated? Author OTGoals General Yes oZey Mcgee, OTR/L Note: POC end date: 08/11/23 (10 visits) Short Term Goals (STG) - Time Frame: 3 visits STG 1: Patient will demonstrate compliance and understanding to HEP by completing program 2x/daily as measured by increase in overall function. Taxicab Dispatcher Goals (LTG) - Time Frame: 10 visits [...] of washing hair and buttoning. : Met Half-Way Goals (LTG) - Time Frame 9 visits(10/25/2023) LTG 1: Patients pain level will decrease from a 3/10 to 0/10 enabling her to use her right hand for ADLs with no pain. 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 LTG 3: Patient's overall functional use of the right hand will increase as indicated by a decrease of 4 points on her QuickDASH score of 11.36 points. Procedures Procedure Name Priority Date/Time Associated Diagnosis Comments CT CHEST WO CONTRAST Routine 01/03/2024 8:03 AM EST Mass of middle lobe of right lung HEMOGLOBIN A1C WITH ESTIMATED AVERAGE GLUCOSE Routine 07/15/2022 8:36 AM EDT BASIC METABOLIC PANEL Routine 07/15/2022 8:36 AM EDT MG HISTORICAL Routine 04/12/2022 9:19 AM EST Encounter for screening mammogram for malignant neoplasm of breast from Last 3 Months or Most Recently Relevant to Health Maintenance Results * CT Chest WO Contrast (01/03/2024 8:03 AM EST) Anatomical Region Laterality Modality Chest Computed Tomogra phy 01/16/2024 11:0 0 AM EST Impressions 01/16/2024 11:12 AM EST 1. Previously seen right middle lobe nodule has slightly decreased in size compared to the previous study and appears less solid, now measuring approximately 2.1 x 0.9 x 2.0 cm. Continued imaging surveillance is recommended as neoplasm is not excluded. 2. Mildly prominent bilateral axillary lymph nodes, left greater than right, unchanged. 3. Aortic and coronary artery atherosclerosis ([id number]). Electronically Signed ??By: Jay ??Charlie D.OCharles ??On: 01/16/2024 11:12 Narrative 01/16/2024 11:12 AM EST CLINICAL DATA: ??Pulmonary nodule follow-up EXAM: CT CHEST WITHOUT CONTRAST TECHNIQUE: Multidetector CT imaging of the chest was performed following the standard protocol without IV contrast. RADIATION DOSE REDUCTION: This exam was performed according to the departmental dose-optimization program which includes automated exposure control, adjustment of the mA and/or kV according to patient size and/or use of iterative reconstruction technique. COMPARISON: ??09/20/2023, 08/26/2023 FINDINGS: Cardiovascular: Heart size is upper limits of normal, stable. No pericardial effusion. Thoracic aorta is nonaneurysmal. Scattered atherosclerotic vascular calcifications of the aorta and coronary arteries. Central pulmonary vasculature is nondilated. Mediastinum/Nodes: Mildly prominent bilateral axillary lymph nodes, left greater than right, unchanged. Several mildly prominent mediastinal lymph nodes which are upper limits of normal in size. Evaluation of the hilar structures is limited in the absence of intravenous contrast. Within this limitation, no obvious hilar adenopathy or mass is identified.. Trachea and esophagus could demonstrate no significant abnormality. Lungs/Pleura: Previously seen right middle lobe has slightly decreased in size compared to the previous study and appears less solid, now measuring approximately 2.1 x 0.9 x 2.0 cm (series 5, image 52; series 3, image 60). This previously measured 3.0 x 1.4 x 2.5 cm when remeasured in a similar plane on 09/20/2023. Is ache attenuation within the perihilar regions. No new pulmonary nodules or masses. No pleural effusion or pneumothorax. Upper Abdomen: No acute abnormality. Musculoskeletal: No chest wall mass or suspicious bone lesions identified. Procedure Note Jay Guerra, DO - 01/16/2024 CLINICAL DATA: Pulmonary nodule follow-up EXAM: CT CHEST WITHOUT CONTRAST TECHNIQUE: Multidetector CT imaging of the chest was performed following the standard protocol without IV contrast. RADIATION DOSE REDUCTION: This exam was performed according to the departmental dose-optimization program which includes automated exposure control, adjustment of the mA and/or kV according to patient size and/or use of iterative reconstruction technique. COMPARISON: 09/20/2023, 08/26/2023 FINDINGS: Cardiovascular: Heart size is upper limits of normal, stable. No pericardial effusion. Thoracic aorta is nonaneurysmal. Scattered atherosclerotic vascular calcifications of the aorta and coronary arteries. Central pulmonary vasculature is nondilated. Mediastinum/Nodes: Mildly prominent bilateral axillary lymph nodes, left greater than right, unchanged. Several mildly prominent mediastinal lymph nodes which are upper limits of normal in size. Evaluation of the hilar structures is limited in the absence of intravenous contrast. Within this limitation, no obvious hilar adenopathy or mass is identified.. Trachea and esophagus could demonstrate no significant abnormality. Lungs/Pleura: Previously seen right middle lobe has slightly decreased in size compared to the previous study and appears less solid, now measuring approximately 2.1 x 0.9 x 2.0 cm (series 5, image 52; series 3, image 60). This previously measured 3.0 x 1.4 x 2.5 cm when remeasured in a similar plane on 09/20/2023. Is ache attenuation within the perihilar regions. No new pulmonary nodules or masses. No pleural effusion or pneumothorax. Upper Abdomen: No acute abnormality. Musculoskeletal: No chest wall mass or suspicious bone lesions identified. IMPRESSION: 1. Previously seen right middle lobe nodule has slightly decreased in size compared to the previous study and appears less solid, now measuring approximately 2.1 x 0.9 x 2.0 cm. Continued imaging surveillance is recommended as neoplasm is not excluded. 2. Mildly prominent bilateral axillary lymph nodes, left greater than right, unchanged. 3. Aortic and coronary artery atherosclerosis ([id number]). Electronically Signed By: Jay Guerra D.O. On: 01/16/2024 11:12 us Alejandrina Kathleen DO AH IMG CT PROCEDURES Fin al Result * (ABNORMAL) Hemoglobin A1C With Estimated Average Glucose (07/15/2022 8:36 AM EDT) HX HEMOGLOBIN A1C 6.0(H) <5.7 % 07/15/2022 10:15 AM EDT [facility] Comment: Normal: ? Less than 5.7% Prediabetes: ??5.7% to 6.4% Diabetes: ? Greater than 6.4% HX ESTIMATED AVERAGE GLUCOSE 126 MG/DL 07/15/2022 10:15 AM EDT [facility] HX EAG COMMENT 07/15/2022 10:15 AM EDT [facility] Comment:The ADA has supporte d the calculation of Average Glucose (eAG) based on HbA1c measurements. However, the eAG reflects the average glycemic level over 2-3 months and it would not necessarily match single glucose laboratory measurements, nor reflect changes in the daily glucose concentration. 07/15/2022 8:36 AM EDT 07/15/2022 9:42 AM EDT Narrative [facility] - 07/15/2022 10:15 AM EDT Performing Lab: [facility] CLIA# [id number], [place]. [address] Specimen Type: Blood us Gerda Mancia PA-C LAB BLOOD ORDERABLES Fi nal Result [facility] * (ABNORMAL) Basic Metabolic Panel (07/15/2022 8:36 AM EDT) HX SODIUM 140 135 - 146 MMOL/L 07/15/2022 10:11 AM EDT [facility] HX POTASSIUM 4.5 3.5 - 5.3 MMOL/L 07/15/2022 10:11 AM EDT [facility] HX CHLORIDE 104 98 - 110 MMOL/L 07/15/2022 10:11 AM EDT [facility] HX CO2 31(H) 23 - 30 MMOL/L 07/15/2022 10:11 AM EDT [facility] HX BUN 11 8 - 24 MG/DL 07/15/2022 10:11 AM EDT [facility] HX GLUCOSE 108(H) 70 - 99 MG/DL 07/15/2022 10:11 AM EDT [facility] Comment:Patients taking eltr ombopag at doses >/= 100 mg daily may show falsely elevated values of 10% or greater. HX CREATININE 0.66 0.50 - 1.50 MG/DL 07/15/2022 10:11 AM EDT [facility] HX CALCIUM 9.1 8.5 - 10.5 MG/DL 07/15/2022 10:11 AM EDT [facility] HX ANION GAP (WC) 5 4 - 14 MMOL/L 07/15/2022 10:11 AM EDT [facility] HX EST. GFR >90 >=60 ML/MIN/1.7 3 M*2 07/15/2022 10:11 AM EDT [facility] Comment: GFR estimated by CKD-EPI equations(NKF 2020). Recommend confirmation of Cr-based eGFR by using Cys-based eGFR and other filtration markers (if applicable) in complex cases and clinical decision-making, as needed. 07/15/2022 8:36 AM EDT 07/15/2022 9:52 AM EDT Narrative [facility] - 07/15/2022 10:11 AM EDT Performing Lab: [facility] CLIA# [id number], [place]. [address] Specimen Type: Blood us Gerda Mancia PA-C LAB BLOOD ORDERABLES Fi nal Result [facility] * MG MAMMOGRAM SCREENING BILATERAL W JADE (04/12/2022 9:19 AM EST) Narrative [facility] - 04/15/2022 2:08 PM EST This is a summary report. The complete report is available in the patient's medical record. If you cannot access the medical record, please contact the sending organization for a detailed fax or copy. CLINICAL DATA: ??Screening. EXAM: DIGITAL SCREENING BILATERAL [...] 14:08 Procedure Note Lizette Neumann MD - 03/29/2023 This is a summary report. The complete report is available in thepatient's medical record. If you cannot access the medical record, pleasecontact the sending organization for a detailed fax or copy. CLINICAL DATA: Screening. EXAM: DIGITAL SCREENING BILATERAL [...] By: Lizette Neumann M.D. On: 04/15/2022 14:08 us Day Iraheta MD IMG MG PROCEDURES Final Result [facility] from Last 3 Months or Most Recently Relevant to Health Maintenance Insurance [place]ICAID [place] [address] [address] [facility] MEDICARE ADV [facility] MEDICARE ADV [place] [id number] [place]ICAID [place] [address] [address] [facility] MEDICARE ADV [facility] MEDICARE ADV [facility] LME Advance Directives For more information, please contact: [phone] Documents on File Type Date Recorded Patient Technical Account Manager Expl anation Power of Supervisor [employer] 02/24/2023 - NO BLOOD Care Teams Corrections Identification Technician Relationship Specialty Start Date End Date Pcp, No PCP - General Internal Medicine 01/12/24
--- OUTSIDE RECORDS SUMMARY | 2024-03-28 09:53 | XMS_ITS | Encounter Summary ---
Author Organization [facility] Address [address] [place] [address] Care Team Providers Care Manager Reliability Name Role Phone Pcp, No Primary Care Provider Unavailabl e Reason for Visit * Reason Comments Sleep Apnea Encounter Details Date Type Department Care Team (Late st Contact Info) Description 03/21/2024 3:00 PM EST Office Visit [facility] - Neurology [address] [address] Mary Hernandez NP [address] [address] Obstructive sleep apnea syndrome (Primary Dx) Social History Tobacco Use Types [...] on file documented as of this encounter Last Filed Vital Signs Vital Sign Reading Time Taken Comments Blood Pressure 130/80 03/21/2024 3:28 PM EST Pulse 76 03/21/2024 3:28 PM EST Temperature - - Respiratory Rate - - Oxygen Saturation 96% 03/21/2024 3:28 PM EST Inhaled Oxygen Concentration - - Weight 102 kg (224 lb) 03/21/2024 3:28 PM EST Height 160 cm (5' 3 ) 03/21/2024 3:28 PM EST Body Mass Index 39.68 03/21/2024 3:28 PM EST documented in this encounter Functional Status * Question Answer Date of Assessment Author Little interest or pleasure in doing things Not at all 03/21/2024 3:27 PM EST Hung Contreras CMA Feeling down, depressed, or hopeless Not at all 03/21/2024 3:27 PM EST Hung Contreras CMA * Over the past 2 weeks, how often have you been bothered by any of the following problems? Question Answer Date of Assessment Author Patient Health Questionnaire-2 Score 0 03/21/2024 3:27 PM EST Hung Contreras CMA documented as of this encounter Plan of Treatment Upcoming Encounters Date Type Department Care Team (Late st Contact Info) Description 07/09/2024 9:00 AM EDT Appointment [facility] - RADIOLOGY CT [address] [place] [address] 07/19/2024 9:00 AM EDT Office Visit [facility] - 03 Pulmonary Medicine [address] [place] [phone] documented as of this encounter Goals Goal Patient Goal Type Associated Problems Recent Progress Patient-Stated? Author OTGoals General Yes Zoey Mcgee, OTR/L Note: POC end date: 08/11/23 (10 visits) Short Term Goals (STG) - Time Frame: 3 visits STG 1: Patient will demonstrate compliance and understanding to HEP by completing program 2x/daily as measured by increase in overall function. Care Home Goals (LTG) - Time Frame: 10 visits LTG 1: Pt's pain will decrease from 05/07 to 1/10 to allow for increased participation [...] of washing hair and buttoning. : Met Pharmacy Technician Goals (LTG) - Time Frame 9 visits(10/25/2023) LTG 1: Patients pain level will decrease from a 3/10 to 0/10 enabling her to use her right hand for ADLs with no pain. 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 LTG 3: Patient's overall functional use of the right hand will increase as indicated by a decrease of 4 points on her QuickDASH score of 11.36 points. documented as of this encounter Visit Diagnoses Diagnosis Obstructive sleep apnea syndrome- Primary Obstructive sleep apnea (adult) (pediatric) documented in this encounter Additional Health Concerns Assessment Noted Time PHQ-9 Depression Total Score: 7 10/27/19 23 8:07 AM EDT documented as of this encounter Care Teams Manager Reliability Relationship Specialty Start Date End Date Pcp, No PCP - General Internal Medicine 01/12/24 documented as of this encounter
--- OUTSIDE RECORDS SUMMARY | 2024-03-28 09:54 | XMS_ITS | Encounter Summary ---
Author Organization [facility] Address [address] [place] [address] Care Team Providers Care Business Management Specialist Name Role Phone Owen Tejada MD Primary Care Provider Unavail able Gold Beaulieu MD Primary Care Provider [phone] [facility], [facility] Primary Care Provider Unavailabl e Encounter Details Date Type Department Care Team Description 02/01/2019 Pt. Non Urgent Medical Question Physiatry - [address] [address] Odette Golden MD [address] [place] [address] [place] [address] Social History Tobacco Use Types Packs/Day Years Used Date Smoking Tobacco: Former Cigarettes Q uit: 02/28/1981 Smokeless Tobacco: Never Alcohol Use Standard Drinks/Week Comments No 0 (1 standard drink = 0.6 oz pur e alcohol) rarely Sex Assigned at Date Recorded Not on file documented as of this encounter Progress Notes * Sarah Clark M.A. - 02/01/2019 8:23 AM ESTFrom: Sera Barraza To: Odette Golden MD Sent: 02/01/2019 8:15 AM EST Subject: Pls contact me about tomorrow appointment What is this appt. For? documented in this encounter Plan of Treatment Not on file documented as of this encounter Visit Diagnoses Not on filedocumented in this encounter Care Teams Business Management Specialist Relationship Specialty Start Date End Date Owen Tejada MD PCP - General Internal Medicine 10/05/18 12/05/19 Gold Beaulieu MD [address] [place] [address] PCP - General Internal Medicine 12/06/19 10/09/[address] [address] PCP - General Internal Medicine 10/10/20 documented as of this encounter
--- OUTSIDE RECORDS SUMMARY | 2024-03-28 09:54 | XMS_ITS | Encounter Summary ---
Author Organization [facility] Address [address] [place] [address] Care Team Providers Care Stove Refinisher Name Role Phone Owen Tejada MD Primary Care Provider Unavail able Gold Beaulieu MD Primary Care Provider [phone] [facility], Pcp Primary Care Provider Unavailabl e Encounter Details Date Type Department Care Team Description 09/11/2019 Computer Systems Design Analyst Report Medical Records [address] [place] [address] Ayesha Anaya MD [address] [place] [address] Social History Tobacco Use Types Packs/Day Years [...] on filedocumented in this encounter Care Teams Stove Refinisher Relationship Specialty Start Date End Date Owen Tejada MD PCP - General Internal Medicine 10/05/18 12/05/19 Gold Beaulieu MD [address] [place] [address] PCP - General Internal Medicine 12/06/19 10/09/20 [facility], Pcp [address] [place] [address] PCP - General Internal Medicine 10/10/20 documented as of this encounter
--- OUTSIDE RECORDS SUMMARY | 2024-03-28 09:54 | XMS_ITS | Encounter Summary ---
Author Organization [facility] Address [address] [place] [address] Care Team Providers Care Flatwork Finisher Hand Name Role Phone Ellie Jones MD Primary Care Provider Un available Owen Tejada MD Primary Care Provider Unavail able Gold Beaulieu MD Primary Care Provider [phone] [facility], [facility]cp Primary Care Provider Unavailabl e Encounter Details Date Type Department Care Team Description 09/19/2015 Pt. Non Urgent Medic al Question Adult Medicine [address] [address] Ellie Jones MD Social History Tobacco Use Types Packs/Day Years Used Date Smoking Tobacco: Former Cigarettes Q uit: 02/28/1981 Smokeless Tobacco: Never Alcohol Use Standard Drinks/Week Comments No 0 (1 standard drink = 0.6 oz pur e alcohol) occasional Sex Assigned at Date Recorded Not on file documented as of this encounter Progress Notes * Anneliese Saavedra M.A. - 09/19/2015 1:30 PM EDTFrom: Sera Barraza To: Ellie Jones MD Sent: 09/19/2015 12:54 PM EDT Subject: Shigella Hi Dr. Rubio and Lois. You know I hate to take any drugs in my body unless absolutely necessary.I understand the Dx is Shigella. Is there a possibility that my body has taken care of this already? I have been asymptomatic since I left your office of my last visit. I feel 100% well. Do you know if I don't take the meds I can have any serious complications? Thank you for listening to me and you quick response. documented in this encounter Plan of Treatment Not on file documented as of this encounter Visit Diagnoses Not on filedocumented in this encounter Care Teams Flatwork Finisher Hand Relationship Specialty Start Date End Date Ellie Jones MD PCP - General Internal Medicine 05/28/15 9 Owen Tejada MD PCP - General Internal Medicine 10/05/18 12/05/19 Gold Beaulieu MD [address] [place] [address] PCP - General Internal Medicine 12/06/19 10/09/[address] [address] PCP - General Internal Medicine 10/10/20 documented as of this encounter
--- OUTSIDE RECORDS SUMMARY | 2024-03-28 09:54 | XMS_ITS | Encounter Summary ---
Author Organization [facility] Address [address] [place] [address] Care Team Providers Care Supervisor Rough End Name Role Phone Ellie Jones MD Primary Care Provider Un available Owen Tejada MD Primary Care Provider Unavail able Gold Beaulieu MD Primary Care Provider [phone] [facility], Pcp Primary Care Provider Unavailabl e Encounter Details Date Type Department Care Team Description 10/24/2015 Walk In Clinic Visit Medical Records [address] [place] [address] Abstract, Provider Social History Tobacco Use Types [...] on filedocumented in this encounter Care Teams Supervisor Rough End Relationship Specialty Start Date End Date Ellie Jones MD PCP - General Internal Medicine 05/28/15 9 Owen Tejada MD PCP - General Internal Medicine 10/05/18 12/05/19 Gold Beaulieu MD [address] [place] [address] PCP - General Internal Medicine 12/06/19 10/09/20 [facility], Pcp [address] [place] [address] PCP - General Internal Medicine 10/10/20 documented as of this encounter
--- OUTSIDE RECORDS SUMMARY | 2024-03-28 09:54 | XMS_ITS | Encounter Summary ---
Author Organization [facility] Address [address] [place] [address] Care Team Providers Care Soil Sort Worker Name Role Phone Gold Beaulieu MD Primary Care Provider [phone] [facility], Pcp Primary Care Provider Unavailabl e Encounter Details Date Type Department Care Team Description 02/12/2020 Pt. Non Urgent Medical Question OBGYN - [address] [id number] Devorah Fairchild DO [address] [place], [place] [id number] Social History Tobacco Use Types Packs/Day Years Used Date Smoking Tobacco: Former Cigarettes Q uit: 02/28/1981 Smokeless Tobacco: Never Alcohol Use Standard Drinks/Week Comments No 0 (1 standard drink = 0.6 oz pur e alcohol) rarely Sex Assigned at Date Recorded Not on file COVID-19 Exposure Response Date Recorded In the last month, have you been in contact with someone who was confirmed or suspected to have Coronavirus / COVID-19? No / Unsure 01/28/2020 9:35 AM EST documented as of this encounter Progress Notes * Rula Chase R.N. - 02/12/2020 1:11 PM ESTFrom: Sera Barraza To: Devorah Fairchild DO Sent: 02/12/2020 8:36 AM EST Subject: Physical I got a message that I have a physical today at 3 or 3:30pm. Please confirm and what office as I amnot seeing it here. Please also check on doctor schedule that has taken Dr. Tejada patients. Please give me a call and let me know if this on [facility] . Thank you documented in this encounter Plan of Treatment Not on file documented as of this encounter Visit Diagnoses Not on filedocumented in this encounter Care Teams Soil Sort Worker Relationship Specialty Start Date End Date Gold Beaulieu MD [address] [place] [address] PCP - General Internal Medicine 12/06/19 10/09/20 [facility], Pcp [address] [place] [address] PCP - General Internal Medicine 10/10/20 documented as of this encounter
--- OUTSIDE RECORDS SUMMARY | 2024-03-28 09:54 | XMS_ITS | Encounter Summary ---
Author Organization [facility] Address [address] [place] [address] Care Team Providers Care Airplane Captain Name Role Phone Gold Beaulieu MD Primary Care Provider [phone] [facility], [facility], Pcp Primary Care Provider Unavailabl e Encounter Details Date Type Department Care Team Description 01/22/2020 Pt. Non Urgent Medical Question Adult Medicine [address] [address] Owen Tejada MD Vitamin D deficiency (Primary Dx) Social History Tobacco Use Types [...] have Coronavirus / COVID-19? No / Unsure 12/24/2019 3:06 PM EDT documented as of this encounter Progress Notes * Evelin Padilla M.A. - 01/22/2020 8:37 AM ESTFrom: Sera Barraza To: Owen Tejada MD Sent: 01/22/2020 8:28 AM EST Subject: Still waiting on response on Vit D Hi, its been almost 2 weeks since I was told I will be called again in reference to taking a weeklyvit D plus the daily dosage of 1000 mg. When I had my blood test that my vit d was low I had been on the meds for almost one month. I have 2 vit d left and would like to know where do I stand. Do i need a weekly plus the daily or can the daily be increased? I do have a refill of the 1000mg, should I refill it? Please answer both questions. Thank you for attention. documented in this encounter Plan of Treatment Scheduled Orders Name Type Priority Associated Diagnoses Orde r Schedule 25 HYDROXY INCLUDES FRACTIONS IF PERFORMED Lab Routine Vitamin D deficiency Expected: 03/12/2020, Expires: 01/22/2021 documented as of this encounter Visit Diagnoses Diagnosis Vitamin D deficiency- Primary Unspecified vitamin D deficiency documented in this encounter Care Teams Airplane Captain Relationship Specialty Start Date End Date Gold Beaulieu MD [address] [place] [address] PCP - General Internal Medicine 12/06/19 10/09/20 [facility], [facility], Pcp [address] [place] [address] PCP - General Internal Medicine 10/10/20 documented as of this encounter
--- OUTSIDE RECORDS SUMMARY | 2024-03-28 09:54 | XMS_ITS | Encounter Summary ---
Author Organization [facility] Address [address] [place] [address] Care Team Providers Care Process Development Chemist Name Role Phone Ellie Jones MD Primary Care Provider Un available Owen Tejada MD Primary Care Provider Unavail able Gold Beaulieu MD Primary Care Provider [phone] [facility], Pcp Primary Care Provider Unavailabl e Encounter Details Date Type Department Care Team Description 11/05/2015 Walk In Clinic Visit Medical Records [address] [place] [id number] Abstract, Provider Social History Tobacco Use Types [...] in this encounter Care Teams Process Development Chemist Relationship Specialty Start Date End Date Ellie Jones MD PCP - General Internal Medicine 05/28/15 9 Owen Tejada MD PCP - General Internal Medicine 10/05/18 12/05/19 Gold Beaulieu MD [address] [place] [address] PCP - General Internal Medicine 12/06/19 10/09/20 [facility], Pcp [address] [place] [address] PCP - General Internal Medicine 10/10/20 documented as of this encounter
--- OUTSIDE RECORDS SUMMARY | 2024-03-28 09:54 | XMS_ITS | Clinical Summary ---
Author Organization [facility] Address [address] [place] [address] Care Team Providers Care Entry Specialist Name Role Phone Simon Brennan RD Primary Care Provider [phone] Source Comments PLEASE NOTE, if this patient is a minor, it may be UNLAWFUL to discuss sensitive information that is contained in these records (such as FAMILY PLANNING, MENTAL HEALTH or SUBSTANCE ABUSE) with the minor patient's parent or other person without the patient's specific authorization.[facility] Allergies Active Allergy Reactions Criticality Noted Date Comments Penicillins 06/03/2014 Medications buPROPion (WELLBUTRIN SR) 150 mg 12 hr tablet 0 5 Active DULoxetine (CYMBALTA) [address] capsule 3 5 Active ergocalciferol, vitamin D2, (VITAMIN D2) 50,000 unit capsule 5 5 Active nabumetone (RELAFEN) 500 mg tablet 0 5 Active LYRICA 150 mg capsule Take 150 mg by mouth 2 (two) times daily. 5 5 Active levothyroxine (SYNTHROID, LEVOTHROID) 75 mcg tablet Take 1 Tab by mouth once daily. 30 Tab 6 5 Active acetic acid-hydrocorti sone (VOSOL-HC) 1-2 % otic solutionIndicat ions:External otitis of left ear Place 4 Drops into the left ear 3 (three) times daily. 10 mL 1 5 Active atorvastatin (LIPITOR) 20 mg tablet Take 1 Tab by mouth nightly at bedtime. 30 Tab 3 5 Active LORazepam (ATIVAN) 0.5 mg tablet Per psych 0 5 Active guaiFENesin-cod eine (TUSSI-ORGANIDI N NR) 10-100 mg/5 mL syrupIndication s:Cough Take 5 mL by mouth 3 (three) times daily as needed for cough. 120 mL 0 5 Active ibuprofen (ADVIL,MOTRIN) 800 mg tabletIndicatio ns:Cough Take 1 Tab by mouth 3 (three) times daily as needed for fever, headaches or pain. 90 Tab 0 5 Active vitamin D 2,000 unit tabletIndicatio ns:Vitamin D deficiency Take 1 Tab by mouth once daily. 30 Tab 6 5 Active Active Problems Problem Noted Date Diagnosed Date JUSTYNA on CPAP 06/03/2014 Fibromyalgia 06/03/2014 Overview (06/03/2014): Follows with Neuro H/O thyroidectomy 06/03/2014 Overview (06/03/2014): ? Cancer Rt lobe On levothyroxine H/O colonoscopy 06/03/2014 Chronic low back pain 06/03/2014 Depression 06/03/2014 H/O vitamin D deficiency 06/03/2014 Iron deficiency anemia 06/03/2014 Obese 06/03/2014 Overview (06/03/2014): Going to [facility] weight management program Social History Tobacco Use Types Packs/Day Years Used Date Smoking Tobacco: Former Smokeless Tobacco: Former Alcohol Use Standard Drinks/Week Comments Yes 0 (1 standard drink = 0.6 oz pur e alcohol) Social Connections Answer Date Recorded Social Connections and Isolation 0 10/21/2018 Financial Resource Strain Answer Date R ecorded Financial Resource Strain 0 2018 Stress Answer Date Recorded Stress 0 10/21/2018 Physical Activity Answer Date Recorded Physical Activity 0 10/21/2018 Food Insecurity Answer Date Recorded Food 0 10/21/2018 Transportation Needs Answer Date Record ed Transportation 0 10/21/2018 Housing Stability Answer Date Recorded Housing 0 10/21/2018 Safety and Environment Answer Date Scar rded Safety 0 10/21/2018 Utilities Answer Date Recorded Utilities 0 10/21/2018 Employment Answer Date Recorded Employment 0 10/21/2018 Comments No Sex and Gender Information Value Date Recorded Sex Assigned at Female 05/23/2017 10:25 AM PDT Legal Sex Female 11:36 AM PDT Gender Identity Female 05/23/2017 10:25 AM PDT Sexual Orientation Straight 05/23/2017 10 :25 AM PDT Last Filed Vital Signs Vital Sign Reading Time Taken Comments Blood Pressure 120/85 09/13/2014 8:59 AM EDT Pulse 79 09/13/2014 8:59 AM EDT Temperature 36.8 ??C (98.3 ??F) 09/13/2014 8:59 AM ED T Respiratory Rate 17 09/13/2014 8:59 AM EDT Oxygen Saturation 98% 09/13/2014 8:59 AM EDT Inhaled Oxygen Concentration - - Weight 103.4 kg (228 lb) 05/23/2017 9:41 AM EDT Height 162.6 cm (5' 4 ) 05/23/2017 9:41 AM EDT Body Mass Index 39.14 05/23/2017 9:41 AM EDT Plan of Treatment Not on file Insurance [facility]ICA[facility] Member Subscriber Plan / Payer (Ef fective 2014-Present) Name:Sera Barraza Relation to Subscriber:Self Name:Sera Barraza Payer ID:[id number] Group ID:Not on file Type:Medicaid Address: [address] [id number] [place] Care Teams Entry Specialist Relationship Specialty Start Date End Date Simon [address] [place] [address] PCP - General Nutrition 03/11/17
--- OUTSIDE RECORDS SUMMARY | 2024-03-28 09:55 | XMS_ITS | Encounter Summary ---
Author Organization [facility] Address [address] [place] [address] Care Team Providers Care Sales Superintendent Name Role Phone Ellie Jones MD Primary Care Provider Un available Owen Tejada MD Primary Care Provider Unavail able Gold Beaulieu MD Primary Care Provider [phone] [facility] Pcp Primary Care Provider Unavailabl e Encounter Details Date Type Department Care Team Description 09/18/2015 Orders Only Adult Medicine [address] [address] Lois Merlos PA-C [address] [place] [address] Social History Tobacco Use Types Packs/Day Years [...] on filedocumented in this encounter Care Teams Sales Superintendent Relationship Specialty Start Date End Date Ellie Jones MD PCP - General Internal Medicine 05/28/15 9 Owen Tejada MD PCP - General Internal Medicine 10/05/18 12/05/19 Gold Beaulieu MD [address] [place] [address] PCP - General Internal Medicine 12/06/19 10/09/20 [facility], Pcp [address] [place] [address] PCP - General Internal Medicine 10/10/20 documented as of this encounter
--- OUTSIDE RECORDS SUMMARY | 2024-03-28 09:55 | XMS_ITS | Encounter Summary ---
Author Organization [facility] Address [address] [place] [address] Care Team Providers Care Cnc Supervisor Name Role Phone Ellie Jones MD Primary Care Provider Un available Owen Tejada MD Primary Care Provider Unavail able Gold Beaulieu MD Primary Care Provider [phone] [facility], Pcp Primary Care Provider Unavailabl e Reason for Visit * Reason Onset Date Comments APPOINTMENT 04/13/2016 2nd opinion Encounter Details Date Type Department Care Team Description 04/13/2016 Telephone Adult Medicine [address] [address] Ellie Jones MD APPOINTMENT (2nd opinion) Social History Tobacco Use Types Packs/Day Years Used Date Smoking Tobacco: Former Cigarettes Q uit: 02/28/1981 Smokeless Tobacco: Never Alcohol Use Standard Drinks/Week Comments No 0 (1 standard drink = 0.6 oz pur e alcohol) occasional Sex Assigned at Date Recorded Not on file documented as of this encounter Miscellaneous Notes * Telephone Encounter - Ellie Jones MD - 04/13/2016 4:47 PM EST I placed referral already, please forwar message to referrals department, thanks. * Telephone Encounter - Edelmira Sanders - 04/13/2016 4:33 PM EST Caller requesting call back from provider: Dr Rodríguez Is the caller the patient? YES Reason for call back: patient asking for an appointment outside of [facility] for a 2nd opinion on her diagnosis of fibromyalgia. Caller offered to speak with the nurse for assistance: YES Response: Patient offered to speak with nurse for assistance and patient agreed. Message forwarded to nurse. documented in this encounter Plan of Treatment Not on file documented as of this encounter Visit Diagnoses Not on filedocumented in this encounter Care Teams Cnc Supervisor Relationship Specialty Start Date End Date Ellie Jones MD PCP - General Internal Medicine 05/28/15 9 Owen Tejada MD PCP - General Internal Medicine 10/05/18 12/05/19 Gold Beaulieu MD [address] [place] [address] PCP - General Internal Medicine 12/06/19 10/09/20 [facility], [address] [address] PCP - General Internal Medicine 10/10/20 documented as of this encounter
--- OUTSIDE RECORDS SUMMARY | 2024-03-28 09:56 | XMS_ITS | Encounter Summary ---
Author Organization [facility] Address [address] [place] [address] Care Team Providers Care Outside Cutter Name Role Phone Ellie Jones MD Primary Care Provider Un available Owen Tejada MD Primary Care Provider Unavail able Gold Beaulieu MD Primary Care Provider [phone] [facility], Pcp Primary Care Provider Unavailabl e Reason for Visit * Reason Onset Date Comments Call From Patient Family 12/11/2015 Call fr om Pt Encounter Details Date Type Department Care Team Description 12/11/[address] [address] Ellie Jones MD Call From Patient Family (Call from Pt) Social History Tobacco Use Types Packs/Day Years Used Date Smoking Tobacco: Former Cigarettes Q uit: 02/28/1981 Smokeless Tobacco: Never Alcohol Use Standard Drinks/Week Comments No 0 (1 standard drink = 0.6 oz pur e alcohol) occasional Sex Assigned at Date Recorded Not on file documented as of this encounter Miscellaneous Notes * Telephone Encounter - Ellie Jones MD - 12/11/2015 4:00 PM EDT Labs will be ordered if clinically appropriate. Thanks. * Telephone Encounter - Felicia Young R.N. - 12/11/2015 2:16 PM EDT Pt does not want to have surgery, she is going to start a program and they have suggested lab work before she begins, she will know what labs she needs on Tuesday, She is asking for support of dr Marcos Rubio and if she will order the labs the pt will start the dietary program * Telephone Encounter - Zenobia Hall - 12/11/2015 2:02 PM EDT Symptoms patient is presenting: Pt called stating she saw Ellie Jones regarding a beariatric surgery. Pt states she had agreed but now has decided she would like to go natural and would like to know what the next steps would be. If pain or injury related was it due to an accident at work or from a motor vehicle accident? NO If yes, gather 3rd constitution party insurance information Date of accident/Injury: N/A How long has patient had these symptoms?: For some time PCP: Ellie Jones [place] / Product Type: MEDICARE [id number] documented in this encounter Plan of Treatment Not on file documented as of this encounter Visit Diagnoses Not on filedocumented in this encounter Care Teams Outside Cutter Relationship Specialty Start Date End Date Ellie Jones MD PCP - General Internal Medicine 05/28/15 9 Owen Tejada MD PCP - General Internal Medicine 10/05/18 12/05/19 Gold Beaulieu MD [address] [place] [address] PCP - General Internal Medicine 12/06/19 10/09/20 [facility], Rudy [address] [place] [address] PCP - General Internal Medicine 10/10/20 documented as of this encounter
--- OUTSIDE RECORDS SUMMARY | 2024-03-28 09:56 | XMS_ITS | Encounter Summary ---
Author Organization [facility] Address [address] [place] [address] Care Team Providers Care Traffic Officer Name Role Phone Ellie Jones MD Primary Care Provider Un available Owen Tejada MD Primary Care Provider Unavail able Gold Beaulieu MD Primary Care Provider [phone] [facility], Pcp Primary Care Provider Unavailabl e Encounter Details Date Type Department Care Team Description 01/15/2016 Constitutional Law Professor Report Medical Records [address] [place] [address] Alli Melendez Social History Tobacco Use Types [...] on filedocumented in this encounter Care Teams Traffic Officer Relationship Specialty Start Date End Date Ellie Jones MD PCP - General Internal Medicine 05/28/15 9 Owen Tejada MD PCP - General Internal Medicine 10/05/18 12/05/19 Gold Beaulieu MD [address] [place] [address] PCP - General Internal Medicine 12/06/19 10/09/20 [facility], Pcp [address] [place] [address] PCP - General Internal Medicine 10/10/20 documented as of this encounter
--- OUTSIDE RECORDS SUMMARY | 2024-03-28 09:57 | XMS_ITS | Encounter Summary ---
Author Organization [facility] Address [address] [place] [address] Care Team Providers Care Scrubber System Attendant Name Role Phone Claudette Benjamin DO Primary Care Pro vider Unavailable Grady Bah MD Primary Care Provider [phone] Claudette Benjamin DO Primary Care Pro vider Unavailable Ellie Jones MD Primary Care Provider Un available Owen Tejada MD Primary Care Provider Unavail able Gold Beaulieu MD Primary Care Provider [phone] Ellie Jones MD Primary Care Provider Un available [facility], Pcp Primary Care Provider Unavailabl e Encounter Details Date Type Department Care Team Description 11/07/2012 Pt. Non Urgent Medic al Question Adult Medicine - [address] [address] Claudette Benjamin DO Social History Tobacco Use Types Packs/Day Years Used Date Smoking Tobacco: Former Cigarettes Q uit: 02/28/1981 Smokeless Tobacco: Never Comments:1983 Alcohol Use Standard Drinks/Week Comments No 0 (1 standard drink = 0.6 oz pur e alcohol) occ Sex Assigned at Date Recorded Not on file documented as of this encounter Progress Notes * Earlene Wiggins M.A. - 11/08/2012 9:13 AM EDT Sent pt a Hupu message informing that letter was sent to her on file home address so it will have Dr signature on it. * Earlene Wiggins M.A. - 11/08/2012 8:59 AM EDT Printed and given to PCP for signature. * Claudette Guajardo DO - 11/07/2012 7:07 PM EDT Can you please write a letter that states she was seen in the office in september (I think Dr. Bah) for ankle pain. I don't see any reference to knee pain or injury in the note. I also didn't see notesfrom Anca. * Gabriella Mansfield L.P.N. - 11/07/2012 3:35 PM EDTFrom: JULISA BARRAZA To: Claudette Guajardo DO Sent: TueNov 07, 2012 3:33 PM Subject: Note Could you please email me a doctor's note as proof Dottie injured my ankle and knees since 10.07.12? thank you documented in this encounter Plan of Treatment Not on file documented as of this encounter Visit Diagnoses Not on filedocumented in this encounter Care Teams Scrubber System Attendant Relationship Specialty Start Date End Date Claudette Benjamin DO PCP - General Internal Medicine 11/02/12 12/24/12 Grady Bah MD [address] [place] [address] PCP - General Internal Medicine 12/25/12 04/22/13 Claudette Benjamin DO PCP - General Internal Medicine 04/23/13 11/21/13 Ellie Jones MD [address] [place] [address] PCP - General Internal Medicine 05/28/15 10/04/18 Owen Tejada MD [address] [place] [address] PCP - General Internal Medicine 10/05/18 12/05/19 Gold Beaulieu MD [address] [place] [address] PCP - General Internal Medicine 12/06/19 10/09/20 Ellie Jones MD [address] [place] [address] PCP - General 11/22/13 05/27/15 [facility], Pcp [address] [place] [address] PCP - General Internal Medicine 10/10/20 documented as of this encounter
--- OUTSIDE RECORDS SUMMARY | 2024-03-28 09:57 | XMS_ITS | Encounter Summary ---
Author Organization [facility] Address [address] [place] [address] Care Team Providers Care Stretcher Helper Name Role Phone Claudette Benjamin DO Primary Care Pro vider Unavailable Grady Bah MD Primary Care Provider [phone] Claudette Benjamin DO Primary Care Pro vider Unavailable Ellie Jones MD Primary Care Provider Un available Owen Tejada MD Primary Care Provider Unavail able Gold Beaulieu MD Primary Care Provider [phone] Ellie Jones MD Primary Care Provider Un available [facility], Pcp Primary Care Provider Unavailabl e Encounter Details Date Type Department Care Team Description 12/12/2012 Manager Collection Report Medical Records [address] [place] [address] David Valerio PA-C Social History Tobacco Use Types Packs/Day [...] on filedocumented in this encounter Care Teams Stretcher Helper Relationship Specialty Start Date End Date Claudette Benjamin DO PCP - General Internal Medicine 11/02/12 12/24/12 Grady Bah MD [address] [place] [address] PCP - General Internal Medicine 12/25/12 04/22/13 Claudette Benjamin DO PCP - General Internal Medicine 04/23/13 11/21/13 Ellie Jones MD [address] [place] [address] PCP - General Internal Medicine 05/28/15 10/04/18 Owen Tejada MD [address] [place] [address] PCP - General Internal Medicine 10/05/18 12/05/19 Gold Baeulieu MD [address] [place] [address] PCP - General Internal Medicine 12/06/19 10/09/20 Ellie Jones MD [address] [place] [address] PCP - General 11/22/13 05/27/15 [facility], Pcp [address] [place] [address] PCP - General Internal Medicine 10/10/20 documented as of this encounter
--- OUTSIDE RECORDS SUMMARY | 2024-03-28 09:57 | XMS_ITS | Encounter Summary ---
Author Organization [facility] Address [address] [place] [address] Care Team Providers Care Detective Lieutenant Name Role Phone Grayd Bah MD Primary Care Provider [phone] Claudette Benjamin DO Primary Care Pro vider Unavailable Grady Bah MD Primary Care Provider [phone] Claudette Benjamin DO Primary Care Pro vider Unavailable Ellie Jones MD Primary Care Provider Un available Owen Tejada MD Primary Care Provider Unavail able Gold Beaulieu MD Primary Care Provider [phone] Ellie Jones MD Primary Care Provider Un available [facility], Pcp Primary Care Provider Unavailabl e Encounter Details Date Type Department Care Team Description 10/25/2012 Refill Adult Medicine [address] [id number] Grady Bah MD [address] [place] [id number] Social History Tobacco Use Types Packs/Day Years Used Date Smoking Tobacco: Former Cigarettes Q uit: 02/28/1981 Smokeless Tobacco: Never Comments:1983 Alcohol Use Standard Drinks/Week Comments No 0 (1 standard drink = 0.6 oz pur e alcohol) occ Sex Assigned at Date Recorded Not on file documented as of this encounter Miscellaneous Notes * Telephone Encounter - Sultana Forde L.P.N. - 10/25/2012 2:28 PM EDT P/a to dr bah to sign * Telephone Encounter - Jodie Godoy L.P.N. - 10/25/2012 12:13 PM EDTFrom: JULISA BARRAZA To: Grady Bah MD Sent: TueOct 25, 2012 11:56 AM Subject: Medication Renewal Request Original authorizing provider: MD Julisa Alonzo would like a refill of the following medications: pregabalin (LYRICA) 150 MG capsule [Grady Bah MD] Preferred pharmacy: [id number] Comment: I need a prior authorization so [facility] can fill. please let me know an update. thank you documented in this encounter Plan of Treatment Not on file documented as of this encounter Visit Diagnoses Not on filedocumented in this encounter Care Teams Detective Lieutenant Relationship Specialty Start Date End Date Grady Bah MD [address] [place] [address] PCP - General 03/21/09 11/01/12 Claudette Benjamin, [address] [address] PCP - General Internal Medicine 11/02/12 12/24/12 Grady Bah MD [address] [place] [address] PCP - General Internal Medicine 12/25/12 04/22/13 Claudette Benjamin, [address] [place] [address] PCP - General Internal Medicine 04/23/13 11/21/13 Ellie Jones MD [address] [place] [address] PCP - General Internal Medicine 05/28/15 10/04/18 Owen Tejada MD [address] [place] [address] PCP - General Internal Medicine 10/05/18 12/05/19 Gold Beaulieu MD [address] [place] [address] PCP - General Internal Medicine 12/06/19 10/09/20 Ellie Jones MD [address] [place] [address] PCP - General 11/22/13 05/27/15 [facility], Pcp [address] [place] [address] PCP - General Internal Medicine 10/10/20 documented as of this encounter
--- OUTSIDE RECORDS SUMMARY | 2024-03-28 09:57 | XMS_ITS | Encounter Summary ---
Author Organization [facility] Address [address] [place] [address] Care Team Providers Care Supervising Deputy Name Role Phone Ellie Jones MD Primary Care Provider Un available Owen Tejada MD Primary Care Provider Unavail able Gold Beaulieu MD Primary Care Provider [phone] [facility], Pcp Primary Care Provider Unavailabl e Encounter Details Date Type Department Care Team Description 07/23/2016 Release of Information Medical Records [address] [place] [id number] Abstract, Provider Social History Tobacco Use Types [...] on filedocumented in this encounter Care Teams Supervising Deputy Relationship Specialty Start Date End Date Ellie Jones MD PCP - General Internal Medicine 05/28/15 9 Owen Tejada MD PCP - General Internal Medicine 10/05/18 12/05/19 Gold Beaulieu MD [address] [place] [address] PCP - General Internal Medicine 12/06/19 10/09/20 [facility], Pcp [address] [place] [address] PCP - General Internal Medicine 10/10/20 documented as of this encounter
--- OUTSIDE RECORDS SUMMARY | 2024-03-28 09:57 | XMS_ITS | Encounter Summary ---
Author Organization [facility] Address [address] [place] [address] Care Team Providers Care Counting Machine Operator Name Role Phone Ellie Jones MD Primary Care Provider Un available Owen Tejada MD Primary Care Provider Unavail able Gold Beaulieu MD Primary Care Provider [phone] [facility], Pcp Primary Care Provider Unavailabl e Encounter Details Date Type Department Care Team Description 02/10/2017 Business Doc Medical Records [address] [place] [address] Abstract, Provider Social History Tobacco Use Types [...] on filedocumented in this encounter Care Teams Counting Machine Operator Relationship Specialty Start Date End Date Ellie Jones MD PCP - General Internal Medicine 05/28/15 9 Owen Tejada MD PCP - General Internal Medicine 10/05/18 12/05/19 Gold Beaulieu MD [address] [place] [address] PCP - General Internal Medicine 12/06/19 10/09/20 [facility], Pcp [address] [place] [address] PCP - General Internal Medicine 10/10/20 documented as of this encounter
--- OUTSIDE RECORDS SUMMARY | 2024-03-28 09:57 | XMS_ITS | Continuity of Care Document ---
Author Organization [facility] Address [address] [place] [phone] Phone Care Team Providers Care Database Administration Manager Name Role Phone Charli Mccloud MD Unavailable Unavailable Allergies, Adverse Reactions, Alerts Substance Reaction Status Criticality Penicillins Active No Information Medications Medication Instructions Dosage Effective Dates (start - stop) Status Comments bupropion HCl SR 150 mg tablet,12 hr sustained-release - Active Adderall 10 mg tablet - Active gabapentin 300 mg capsule - Acti ve losartan 50 mg tablet - Active Procedures Procedure Date Established Patient-detailed New Patient-comprehensive Advance Directives Directive Yes / No Effective Date File Name No Information Encounters Encounter Description Practice Location Reason(s) For Visit Diagnoses Date Provider Providers Copied on Encounter Established Patient-detai led [facility], [address] [place] [address], [id number], tel:[phone] [facility] Office back pain (chief complaint) Severe low back pain [address] [place] [address], [id number] , [place]. tel:[phone] Referring Provider: Juan Ba, [address] [place], [address]. tel:[phone] New Patient-compr ehensive [facility], [address] [place] [address], [id number], tel:[phone] [facility] back pain (chief complaint) Severe low back pain [facility] Augustin. [address] [place] [address], [id number] , . tel:[phone] Referring Provider: Juan Ba, [address] [place], [address]. tel:[phone] Family History Family Member Type Diagnosis Age At Onset No Information Payers Payer name Insurance type Covered alliance party ID Authorburkea roberto(s) [employer] Medicare PPO MB [id number] Social History Type Description Quantity Date Captured Comments Alcohol Use Details Unknown Caffeine Use Details Unknown Tobacco Use Status Cigarette smoker Smoking Status Current every day smoker Smoking Tobacco Use Details Cigarette: No Details Available Cigarette: No Details Available Sex Female Vital Signs Date / Time: Height Weight BMI Pulse Rate Blood Pressure Temperature Respiratory Rate Body Surface Area Head Circumference Head Circ. Percentile Wt./[place]. Percentile BMI percentile Pulse Ox Inhaled Ox 1:53 PM 63.00 in 101.605 kg (224.00 lbs) 39.6 8 kg/m eter (2) 76 /min 155/80 mm[Hg] Chief Complaint And Reason For Visit From encounter dated '09/07/2021 13:45'. back pain (chief complaint). Description: The patient returns today in follow- up. Since her last visit her severe pain [...] lumbar spine. She presents today for review. Reason For Referral Reason For Referral No Information Plan Of Treatment Date Type Action Status Goal Tobacco cessation counseling completed History Of Present Illness Encounter Date Complaint History Of Prese nt Illness back pain The patient retu rns today in follow-up. Since her last visit [...] emergency department without clear-cut cause being determined. Functional Status Date Functional Assessmen t Pain Score 2/10 Instructions Date Instruction Additional Infor alem No Information Assessments Type Assessment Date assessment Severe low back pain Patient Care Teams Name Effective Dates (start - stop) Status Members No Information
--- OUTSIDE RECORDS SUMMARY | 2024-03-28 09:57 | XMS_ITS | Encounter Summary ---
Author Organization [facility] visits prior to 04/30/2023. [place] [address] Care Team Providers Care Collar Worker Name Role Phone Day Iraheta MD Primary Care Provid er Unavailable Mary Hernandez WORK[employer] FIN[employer]CIALS CONSULTANT Unavailable [phone] Reason for Visit * Reason Onset Date Comments sleep study results 06/14/2022 Encounter Details Date Type Department Care Team Description 06/14/2022 Telephone [facility] [address] [address] Mary Hernandez NP [address] [address] sleep study results Social History Tobacco Use Types Packs/Day Years [...] How often do you attend chur or alevism services? More than 4 times per year 03/25/2022 Do you belong to any clubs o r organizations such as advent groups, unions, fraternal or athletic groups, or [...] Answer Date Recorded SDOH PHQ2 SCORE 0 06/11/2022 [facility] [place] [facility] - Occupational Stress [...] place to sleep or slept in a senior living (including now)? No 03/25/2022 Sex and Gender Information Value Date Recorded Sex Assigned at Female 01/19/2021 3:54 PM EST Gender Identity Female 01/19/2021 3:54 PM EST Sexual Orientation Not on file COVID-19 Exposure Response Date Recorded In the last 10 days, have yo u been in contact with someone who was confirmed or suspected to have Coronavirus/COVID-19? No / Unsure 06/11/2022 8:21 AM EDT documented as of this encounter Miscellaneous Notes * Telephone Encounter - Gissel Thomas CMA - 06/14/2022 3:26 PM EDT Spoke to patient. Please see other phone message. Electronically signed by: Gissel Thomas CMA 06/14/22 1527 * Telephone Encounter - Kristal Bobo - 06/14/2022 2:32 PM EDT Patient called to get the sleep study test results and where does she go to get a CPAP? Please [phone] Thank you Kristal documented in this encounter [...] documented as of this encounter Care Teams Collar Worker Relationship Specialty Start Date End Date Day Iraheta MD PCP - General Internal Medicine 02/16/22 Mary Hernandez NP [facility] [place] [address] Nurse Practitioner Nurse Practitioner 10/28/22 documented as of this encounter
--- OUTSIDE RECORDS SUMMARY | 2024-03-28 09:57 | XMS_ITS | Encounter Summary ---
Author Organization [facility] Address [address] [place] [address] Care Team Providers Care Rug Cutter Helper Name Role Phone Claudette Benjamin DO Primary Care Pro vider Unavailable Grady Bah MD Primary Care Provider [phone] Claudette Benjamin DO Primary Care Pro vider Unavailable Ellie Jones MD Primary Care Provider Un available Owen Tejada MD Primary Care Provider Unavail able Gold Beaulieu MD Primary Care Provider [phone] Ellie Jones MD Primary Care Provider Un available [facility], Pcp Primary Care Provider Unavailabl e Reason for Visit * Reason Onset Date Comments Back Pain 11/02/2012 Knee Pain 11/02/2012 Encounter Details Date Type Department Care Team Description 11/02/2012 Telephone Adult [address] [address] Claudette Benjamin DO Back Pain; Knee Pain Social History Tobacco Use Types Packs/Day Years Used Date Smoking Tobacco: Former Cigarettes Q uit: 02/28/1981 Smokeless Tobacco: Never Comments:1983 Alcohol Use Standard Drinks/Week Comments No 0 (1 standard drink = 0.6 oz pur e alcohol) occ Sex Assigned at Date Recorded Not on file documented as of this encounter Miscellaneous Notes * Telephone Encounter - Paolo Tovar L.P.N. - 11/02/2012 3:28 PM EDT Patient called wants an appt SUPRIYA with Dr. Camejo Today or tomorrow None available Daughter is yelling in the back ground took the phone from the patient She is demanding an appt for her mother today Explain none available The patient and the daughter are yelling had to ask them to stop yellingand only one do the talking the daughter is very upset and demanding wants an appt tomorrow The appt is for her mother ongoing back pain the patient states she left Dr. Bah because Because he doesn't listen to her Appt made with Sourav MAE For tomorrow at 10:30 Reinforced phone consultation and advice Reviewed with the patient S/S to watch for that would require immediate attention If symptoms worsen patient can call the triage nurse or go to the ER if needed can call 911 Patient states he/she is satisfied with information and homecare instructions he is able to verbalize the instructions given * Telephone Encounter - Sultana Forde - 11/02/2012 11:53 AM EDT Symptoms patient is presenting: Patient is having severe back pain and knee pain, says the medication she was put on is not working. How long has patient had these symptoms?: ongoing PCP: Claudette Garcia Payor: [facility] FFS Plan: FFS HMO $0 [id number] Product Type: MEDICAID RISK documented in this encounter Plan of Treatment Not on file documented as of this encounter Visit Diagnoses Not on filedocumented in this encounter Care Teams Rug Cutter Helper Relationship Specialty Start Date End Date Claudette Benjamin DO PCP - General Internal Medicine 11/02/12 12/24/12 Grady Bah MD [address] [place] [address] PCP - General Internal Medicine 12/25/12 04/22/13 Claudette Benjamin DO PCP - General Internal Medicine 04/23/13 11/21/13 Ellie Jones MD [address] [place] [address] PCP - General Internal Medicine 05/28/15 10/04/18 Owen Tejada MD [address] [place] [address] PCP - General Internal Medicine 10/05/18 12/05/19 Gold Beaulieu MD [address] [place] [address] PCP - General Internal Medicine 12/06/19 10/09/20 Ellie Jones MD [address] [place] [address] PCP - General 11/22/13 05/27/15 [facility], Pcp [address] [place] [address] PCP - General Internal Medicine 10/10/20 documented as of this encounter
--- NOTE | 2024-03-28 10:34 | ED_ITS ---
HPI - General Adult General Chief complaint: Upper Respiratory Symptoms Stated complaint: Body aches, cough Time Seen by Provider: 03/28/24 10:34 Source: patient Mode of arrival: ambulatory Limitations: no limitations History of Present Illness ED Provider: Mini Masterson PA-C HPI narrative: Patient is a 63 year old assigned female at with no reported medical history presenting to the emergency department today with body aches and a cough. Patient states that over the last day she has had body aches, cough, and nasal congestion. Patient states that she is concerned she has something because she is currently staying with infants recently home from the NICU. Patient denies any dizziness, lightheadedness, abdominal pain, nausea, vomiting, fever, chills, blurry vision, double vision, loss of vision, chest pain, difficulty breathing, shortness of breath, back pain, night sweats, pain with urination, increased urinary frequency, increased urinary urgency, blood in her urine or stool, syncope or a near syncopal episode, recent trauma or falls, bowel incontinence, bladder incontinence, or any other complaints at this time. Relieving factors: none Exacerbating factors: none Associated symptoms: cough Treatments prior to arrival: none Related Data Allergies Allergy/AdvReac Type Severity Reaction Status Date / Time Penicillins [PENICILLINS] Allergy Severe RASH Verified 03/28/24 08:34 penicillin V Allergy Unknown anaphylaxis Verified 03/28/24 08:34 Review of Systems Constitutional: Constitutional: Reports no additional constitutional complaints, Reports body ache(s), Denies chills, Denies fever(s) and Denies night sweats Eyes: Eyes: Reports no additional eye complaints, Denies blurry vision, Denies change in vision, Denies diplopia, Denies eye discharge, Denies loss of vision and Denies eye pain ENT: Denies dizziness and Reports nasal congestion Cardiovascular: Cardiovascular: Reports no additional cardiovascular complaints, Denies chest pain, Denies lightheadedness, Denies Loss of Consciousness and Denies dyspnea Respiratory: Respiratory: Reports no additional respiratory complaints, Reports cough and Denies dyspnea Gastrointestinal: Gastrointestinal: Reports no additional gastrointestinal complaints, Denies abdominal pain, Denies melena, Denies hematochezia, Denies change in bowel habits and Denies change in stool character Genitourinary: Genitourinary: Denies hematuria, Denies urinary frequency, Denies dysuria, Denies urinary incontinence, Denies urinary hesitancy and Denies urinary urgency Musculoskeletal: Musculoskeletal: Reports no additional musculoskeletal complaints, Denies numbness and Denies tingling Neurologic: Denies dizziness, Denies loss of vision, Denies numbness and Denies tingling Psychiatric: Psychiatric: Reports no additional psychiatric complaints Endocrine: Endocrine: Reports no additional endocrine complaints Hematologic/Lymphatic: Hematologic/Lymphatic: Reports no additional hematologic/lymphatic complaints Allergic/Immunologic: Allergic/Immunologic: Reports no additional allergic/immunologic complaints [facility] Past Medical History Attestation statement: The following information was validated with the patient. Source: old records reviewed and nursing notes reviewed Social History Social History Advance Directives: No Advance Directives Information Provided: Yes Physical Exam ED Vital Signs: Vital Signs - 24 hr 03/28/24 08:32 Temperature 98.0 F Pulse Rate 83 Respiratory Rate 16 Blood Pressure 129/61 Pulse Oximetry 96 Oxygen Delivery Method Room Air BMI result Body Mass Index 39.2 Const General: cooperative, no acute distress, alert and awake Nutritional Appearance: well nourished Orientation/consciousness: patient oriented x3 Limitations: no limitations HENMT Head: Yes normal to inspection and Yes atraumatic Ears: hearing grossly normal bilaterally and external ears normal General nose exam: Normal external nose present, no nasal discharge noted and no epistaxis Face and sinus: Yes normal facial exam, No abrasion and No laceration Mouth: Normal oral and palatal mucosa present, no drooling and no muffled voice Eyes General: appearance normal, both eyes and all related structures Periorbital: periorbital findings normal Eyelids: Yes eyelids normal Conjunctivae: conjunctivae normal Pupils: Equal, round and reactive pupils present EOM: EOMs intact bilaterally Neck Neck: Yes normal visual inspection, Yes full ROM and Yes no lymphadenopathy Chest Chest palpation & inspection: normal inspection of the chest Resp Effort & Inspection: normal respiratory effort and able to speak in complete sentences GI Inspection: Yes normal to inspection Neuro General: patient oriented x3 and moves all extremities Cranial nerves: Yes Equal, round and reactive pupils present Cognition (Neuro): normal cognition Extrem General: Yes normal to inspection, Yes full ROM and Yes capillary refill normal Psych Appearance: grossly normal Mental Status: mental status grossly normal Affect: normal affect Attitude: cooperative Thought process: Normal thought process present Thought content: Normal thought content present Insight: Good insight present (Psych) Medical Decision Making Medical Decision Making [facility] Narrative: Patient is a 63 year old assigned female at with no reported medical history presenting to the emergency department today with nasal congestion, cough, and body aches. Patient's physical exam was unremarkable. Patient's chest x-ray showed no acute process. Patient's COVID-19 testing was positive. I explained my physical exam findings as well as all test results to the patient. I answered all questions asked by the patient. I spent a significant amount of time with the patient answering her questions about quarantine / infection precautions. Patient verbalized understanding the need to quarantine and take appropriate precautions to avoid infecting those she is staying with. I stressed the importance of the patient taking her medication as directed (either prescribed or as the over the counter packaging recommends). I stressed the importance of the patient following up with her primary care provider. I stressed the importance of the patient returning to the emergency department immediately if her symptoms were to worsen or if she were to develop any dizziness, shortness of breath, difficulty breathing, chest pain, blurry vision, loss of vision, nausea, vomiting, abdominal pain, fever, chills, back pain, or any other complaints. Patient verbalized agreement and understanding with this treatment plan and discharge. Differential Diagnosis Differential Diagnoses: The differential diagnosis associated with the presentation includes COVID-19 Influenza RSV PNA URI Cough Admission/Observation Consideration of admission/observation: Escalation of care including admission/observation considered Patient would have been admitted to the hospital had her work up had any findings where hospital admission was appropriate and her clinical presentation warranted hospital admission. Lab Data [facility] Lab Attestation statement: I reviewed the patient's lab results. My interpretation of these results are in the [facility] Rationale portion of this note. Labs: Lab Results 03/28/24 Range/Units 08:45 Influenza Type A (PCR) NEGATIVE (Negative) Influenza Type B (PCR) NEGATIVE (Negative) RSV RNA Qual (PCR) NEGATIVE (Negative) SARS-CoV-2 RNA (RT-PCR) POSITIVE A (Negative) S. pyogenes GrpA HENRI Negative (Negative) Independent Interpretation I performed an independent interpretation of an: Plain X-Ray Interpretation: My interpretation is in agreement with the radiologist's impression of this imaging study. EXAMINATION: XR CHEST CLINICAL INFORMATION: cough COMPARISON: None available. TECHNIQUE: 2 views of the chest were obtained. FINDINGS: The cardiac, hilar, and mediastinal contours are normal. The lungs are clear bilaterally. There is no pneumothorax or pleural effusion. There is no focal osseous or soft tissue abnormality. Pectus excavatum. XR/XR chest 2V IMPRESSION: No active disease. Electronically signed by: Braden Louis MD 03/28/2024 10:25 AM EST Dictated By: Braden Louis MD Signed By: Electronically signed by Braden Louis MD 03/28/24 1025 Radiology Impression Discussion of test interpretation with radiology: I have reviewed the radiologist's reading. Discharge Plan Discharge Clinical Impression: COVID-19 Patient Disposition: Home, Self-Care Instructions: COVID-19 (Coronavirus Disease 2019) (ED) Additional Instructions: Follow up with your primary care provider. Return to the emergency department immediately if your symptoms worsen or if you develop any dizziness, shortness of breath, difficulty breathing, chest pain, blurry vision, loss of vision, nausea, vomiting, abdominal pain, fever, chills, back pain, or any other complaints. Referrals: [facility] [place] Family Medicine [Provider Group] (Call to establish and follow up with a primary care provider. If you already have a primary care provider, please follow up with them.) [facility] [place] [facility] [Provider Group] (Call to establish and follow up with a primary care provider. If you already have a primary care provider, please follow up with them.) [facility] [place] [facility] [Provider Group] (Call to establish and follow up with a primary care provider. If you already have a primary care provider, please follow up with them.) Discharge Date/Time: 03/28/24 10:43 Print Language: Hungarian
== END 2024-03-28 10:43 | disposition home or self-care (01) ==
PROVIDERS: Emergency Provider Student in an Organized Health Care Education/Training Program
DX: U07.1 COVID-19 (principal); M79.10 Myalgia, unspecified site; R05.9 Cough, unspecified
CPT/HCPCS: 0241U; 71046; 87651; 99281; 99283

== ENCOUNTER → 2024-03-28 09:50 | Outpatient (BNV) | payer MEDICARE, MEDICAID, SELFPAY | PROVIDERS: Emergency Provider Student in an Organized Health Care Education/Training Program; Visit Provider Radiology Diagnostic Radiology | DX: R05.9 Cough, unspecified (principal) | CPT/HCPCS: 71046 ==